=== PATIENT | female | born 1930 ===

== ENCOUNTER 2017-09-24 10:48 | Inpatient (IN) | payer MEDICARE, MEDICAID ==
[2017-09-24] MEDS ORDERED: Sodium Chloride 0.9% 1,000 ML IV STA (11:26)
[2017-09-24] MEDS ORDERED: Morphine 2 mg/ml ISec IVP STA (11:26)
--- NOTE | 2017-09-24 11:35 | ED PDOC ---
Arrival/HPI - General Chief Complaint: GI Problem Time Seen by Provider: 09/24/17 11:11 - History of Present Illness Narrative History of Present Illness (Text): 87 y/o woman w/ pmhx of s/p appendectomy, cholecystectomy, hysterecetomy, left humeral fracture, chronic interstitial lung disease on 02 (recent ct chest w/ contrast shows chronic ILD) presents c/o 5 days of constipation complainiing of luq/left flank/left sdoed cva pain ttp, typically exacerbated by movement, characterized as burning, denies any asosicate dn/v/fevers/chills/abdominal distention. ros : chronci cough x many months productive fo a whitish/yellowish mucoid expectoration. Denies dysuria. Last 5 days prior. 09/24/17 11:31 Past Medical History - Provider Review Nursing Documentation Reviewed: Yes - Past History Past History: Unable to Obtain - Tetanus Immunization Tetanus Immunization: Unknown - Cardiac Hx Hypertension: Yes - Pulmonary Hx Chronic Obstructive Pulmonary Disease (COPD): Yes - Neurological Hx Neurological Disorder: No - HEENT Hx HEENT Disorder: Yes Hx Cataracts: Yes Hx Glaucoma: Yes - Renal Hx Renal Disorder: Yes (RENAL INSUFFICIENCY) - Endocrine/Metabolic Hx Endocrine Disorders: No - Hematological/Oncological Hx Blood Disorders: Yes Hx Shingles: Yes (in 2013) - Integumentary Hx Dermatological Disorder: Yes Other/Comment: shingles - Musculoskeletal/Rheumatological Hx Falls: Yes Hx Fractures: Yes (fx left humerus) - Gastrointestinal Hx Gastrointestinal Disorders: Yes Hx Constipation: Yes Hx Gastroesophageal Reflux: Yes - Genitourinary/Gynecological Hx Reproductive Disorders: Yes (hyst) - Psychiatric Hx Psychophysiologic Disorder: No Hx Depression: No Hx Emotional Abuse: No Hx Physical Abuse: No Hx Substance Use: No - Surgical History Hx Appendectomy: Yes Hx Cholecystectomy: Yes Other/Comment: FALLOPIAN TUBES - Anesthesia Hx Anesthesia: Yes - Suicidal Assessment Feels Threatened In Home Enviroment: No Family/Social History - Physician Review Nursing Documentation Reviewed: Yes Family/Social History: No Known Family HX Smoking Status: Never Smoked Hx Alcohol Use: No Hx Substance Use: No Hx Substance Use Treatment: No Allergies/Home Meds Allergies/Adverse Reactions: Allergies acyclovir Adverse Reaction (Verified 09/24/17 11:02) SHORTNESS OF BREATH Home Medications: Home Meds Medication Instructions Recorded Confirmed Docusate [Colace] 1 cap PO DAILY 09/24/17 09/24/17 Esomeprazole Magnesium [Nexium] 40 mg PO DAILY 09/24/17 09/24/17 Latanoprost 0.005% Opht [Xalatan 1 drop OU HS 09/24/17 09/24/17 Opht] Montelukast [Singulair] 10 mg PO DAILY 09/24/17 09/24/17 Multivitamin/Iron/Folic Acid 1 tab PO DAILY 09/24/17 09/24/17 [Centrum Adults Tablet] Review of Systems - Review of Systems Constitutional: Normal Eyes: Normal ENT: Normal Respiratory: SOB, Cough Cardiovascular: Normal Gastrointestinal: Abdominal Pain, Constipation Genitourinary Female: Normal Musculoskeletal: Normal Skin: Normal Neurological: Normal Endocrine: Normal Hemo/Lymphatic: Normal Psychiatric: Normal Physical Exam Vital Signs Reviewed: Yes Vital Signs Temp Pulse Resp BP Pulse Ox 09/24/17 15:31 97.8 F 78 18 142/79 98 09/24/17 15:00 75 18 142/68 98 09/24/17 12:47 79 18 144/71 98 09/24/17 11:35 98.7 F 84 18 146/76 98 09/24/17 11:07 98.7 F 84 17 146/76 93 L Temperature: Afebrile Blood Pressure: Normal Pulse: Regular Respiratory Rate: Normal Appearance: Positive for: Well-Appearing, Non-Toxic, Comfortable Pain Distress: None Mental Status: Positive for: Alert and Oriented X 3 - Systems Exam Head: Present: Atraumatic, Normocephalic Pupils: Present: PERRL Extroacular Muscles: Present: EOMI Conjunctiva: Present: Normal Mouth: Present: Moist Mucous Membranes Neck: Present: Normal Range of Motion Respiratory/Chest: Present: Clear to Auscultation, Good Air Exchange. No: Respiratory Distress, Accessory Muscle Use Cardiovascular: Present: Regular Rate and Rhythm, Normal S1, S2. No: Murmurs Abdomen: Present: Normal Bowel Sounds, Other (soft, nt, no rebound ttp, + left midaxxillary line rib 10 ttp/leftr sided cva ttp ). No: Tenderness, Distention , Peritoneal Signs Back: Present: Normal Inspection Upper Extremity: Present: Normal Inspection. No: Cyanosis, Edema Lower Extremity: Present: Normal Inspection. No: Edema Neurological: Present: GCS=15, CN II-XII Intact, Speech Normal, Motor Func Grossly Intact, Normal Sensory Function, Normal Cerebellar Funct, Norm Deep Tendon Reflexes, Gait Normal, Memory Normal, Normal 2Pt Descrimination Skin: Present: Warm, Dry, Normal Color. No: Rashes Psychiatric: Present: Alert, Oriented x 3, Normal Insight, Normal Concentration Medical Decision Making ED Course and Treatment: nsr @ 77 bpm qtc: 416 mS , no arrythmogenic intervals , no ischemic st-t segment . 09/24/17 12:25 abd xr: moderate constipation ua: bactriuria cxr: diffuse interstitial infiltrate new onset. pna psi/port score : 79-89 , pt clinically hemodynamically stable . ambulatory w / managed pain , will discuss closely monitored outpt. with pmd. iv abx in ed and stool softeners. 09/24/17 14:18 Nausea has ensued, attempt at bm unsuccessful. discussions w/ pmd's Chyna and Khadijah [phone] , revelaed a preference for hospital admisison/ observation to facilitate disimpaction/ iv abx for new interstitial infiltrate. 09/24/17 16:13 - Lab Interpretations Lab Results: 09/24/17 11:34 09/24/17 11:34 Lab Results 09/24/17 13:06: Lactic Acid 0.9 09/24/17 11:53: Urine Color Yellow, Urine Appearance Clear, Urine pH 7.0, Ur Specific [place] <= 1.005, Urine Protein Negative, Urine Glucose (UA) Negative, Urine Ketones Negative, Urine Blood Trace-lysed H, Urine Nitrate Negative, Urine Bilirubin Negative, Urine Urobilinogen 0.2, Ur Leukocyte Esterase Negative , Urine RBC 2 - 5, Urine WBC 0 - 2, Ur Epithelial Cells 3 - 4, Amorphous Sediment Few, Urine Bacteria Mod, Urine Other Uyeast 09/24/17 11:34: Sodium 139, Potassium 4.5, Chloride 100, Carbon Dioxide 32, Anion Gap 12, BUN 12, Creatinine 0.6 L, Est GFR ( Amer) > 60, Est GFR ( Non-Af Amer) > 60, Random Glucose 103, Calcium 9.3, Total Bilirubin 1.0, AST 31 , ALT 30, Alkaline Phosphatase 81, Lactate Dehydrogenase 500, Total Creatine Kinase 56, Troponin I < 0.01, Total Protein 7.9, Albumin 4.1, Globulin 3.8, Albumin/Globulin Ratio 1.1, Amylase 58, Lipase 53 09/24/17 11:34: PT 11.7, INR 1.06, APTT 31.3 09/24/17 11:34: WBC 8.6, RBC 4.52, Hgb 13.7, Hct 41.4, MCV 91.6, MCH 30.3, MCHC 33.1, RDW 14.2, Plt Count 259, MPV 11.1 H, Gran % 51.5, Lymph % (Auto) 21.3 L, [place] % (Auto) 8.6 H, Eos % (Auto) 18.3 H, Baso % (Auto) 0.3, Gran # 4.41, Lymph # 1.8, [place] # 0.7 H, Eos # 1.6 H, Baso # 0.03 - RAD Interpretation Radiology Orders: 09/24/17 11:26 ABD 2 VIEWS (FLAT/UP OR DECUB) [RAD] Stat 09/24/17 12:43 CHEST TWO VIEWS (PA/LAT) [RAD] Stat - Medication Orders Current Medication Orders: Sodium Chloride (Sodium Chloride 0.9%) 1,000 mls @ 100 mls/hr IV .Q10H STA Stop: 09/24/17 21:25 Last Admin: 09/24/17 11:53 Dose: 100 mls/hr eMAR Start Stop Document 09/24/17 11:53 GMD (Rec: 09/24/17 11:53 GMD [facility] [id number]) Intravenous Solution Start Date 09/24/17 Start Time 11:53 Discontinued Medications Docusate Sodium (Colace) 200 mg PO STAT STA Stop: 09/24/17 14:16 Last Admin: 09/24/17 14:35 Dose: 200 mg Doxycycline Hyclate (Doryx) 100 mg PO STAT STA PRN Reason: Protocol Stop: 09/24/17 14:15 Last Admin: 09/24/17 14:35 Dose: 100 mg Famotidine (Pepcid) 20 mg IVP STAT STA Stop: 09/24/17 11:27 Last Admin: 09/24/17 11:52 Dose: 20 mg IVP Administration Document 09/24/17 11:52 GMD (Rec: 09/24/17 11:[id number]) Charges for Administration # of IVP Administrations 1 Ceftriaxone Sodium (Rocephin 1 Gram Ivpb) 1 gm in 100 mls @ 200 mls/hr IVPB STAT STA PRN Reason: Protocol Stop: 09/24/17 14:43 Last Admin: 09/24/17 14:49 Dose: 200 mls/hr eMAR Start Stop Document 09/24/17 14:49 GMD (Rec: 09/24/17 14:49 [id number]) Intravenous Solution Start Date 09/24/17 Start Time 14:49 End Date 09/24/17 End time 15:19 Total Infusion Time 30 Ipratropium [place] (Atrovent) 0.5 mg IH STAT STA Stop: 09/24/17 14:04 Last Admin: 09/24/17 14:35 Dose: 0.5 mg Morphine Sulfate (Morphine) 2 mg IVP STAT STA Stop: 09/24/17 11:27 Last Admin: 09/24/17 11:52 Dose: 2 mg MAR Pain Assessment Document 09/24/17 11:52 GMD (Rec: 09/24/17 11:53 GMD [place] [id number]) Pain Reassessment Is this a pain reassessment? No Sleep Is patient sleeping during reassessment? No Presence of Pain Presence of Pain Yes Location Left, Right or Bilateral Left Upper or Lower Lower Pain Location Body Site Abdomen Back IVP Administration Document 09/24/17 11:52 GMD (Rec: 09/24/17 11:53 GMD [place] [id number]) Charges for Administration # of IVP Administrations 1 Ondansetron HCl (Zofran Inj) 4 mg IVP STAT STA Stop: 09/24/17 15:40 Last Admin: 09/24/17 15:54 Dose: 4 mg IVP Administration Document 09/24/17 15:54 [email or web address] (Rec: 09/24/17 15:54 CASTS1 [place] [address]) Charges for Administration # of IVP Administrations 1 Disposition/Present on Arrival - Present on Arrival Any Indicators Present on Arrival: No History of DVT/PE: No History of Uncontrolled Diabetes: No Urinary Catheter: No History of Decub. Ulcer: No History Surgical Site Infection Following: None - Disposition Have Diagnosis and Disposition been Completed?: Yes Diagnosis: Interstitial pneumonia, Constipation Disposition: HOSPITALIZED Disposition Time: 16:17 Patient Plan: Admission Condition: FAIR Forms: [employer] ([place]ian)
[2017-09-24 11:53] LABS: BASO # 0.03 K/mm3 (0.0-2.0); BASO % 0.3 % (0.0-3.0); EOS # 1.6 (0.0-0.7); EOS % 18.3 % (1.5-5.0); GRAN # 4.41 (1.4-6.5); GRAN % 51.5 % (50.0-68.0); HEMATOCRIT 41.4 % (36.0-48.0); LYMPH # 1.8 (1.2-3.4); LYMPH % 21.3 % (22.0-35.0); MEAN CELL VOLUME 91.6 fl (80.0-105.0); MEAN CORPUSCULAR HEMOGLOBIN 30.3 pg (25.0-35.0); MEAN CORPUSCULAR HGB CONC 33.1 g/dl (31.0-37.0); MEAN PLATELET VOLUME 11.1 fl (7.0-11.0); MONO # 0.7 (0.1-0.6); MONO % 8.6 % (1.0-6.0); RED CELL DISTRIBUTION WIDTH 14.2 % (11.5-14.5); WHITE BLOOD COUNT 8.6 10^3/ul (4.5-11.0)
[2017-09-24 12:12] LABS: ALB/GLOB RATIO 1.1 (1.1-1.8); ALKALINE PHOSPHATASE 81 U/L (38-126); ALT/SGPT 30 U/L (7-56); AMYLASE 58 U/L (35-125); AST/SGOT 31 U/L (14-36); BLOOD UREA NITROGEN 12 mg/dL (7-21); CALCIUM 9.3 mg/dL (8.4-10.5); CARBON DIOXIDE 32 mmol/L (21-33); CHLORIDE 100 mmol/L (98-107); GFR AFRICAN-AMERICAN > 60; GLUCOSE,RANDOM 103 mg/dL (70-110); LIPASE 53 U/L (23-300); POTASSIUM 4.5 mmol/L (3.6-5.0); SODIUM 139 mmol/L (132-148); TOTAL PROTEIN 7.9 g/dL (5.8-8.3)
[2017-09-24 12:13] LABS: URINE APPEARANCE CLEAR (CLEAR); URINE BILIRUBIN NEGATIVE (NEGATIVE); URINE BLOOD TRACE-LYSED (NEGATIVE); URINE COLOR YELLOW (YELLOW); URINE GLUCOSE (UA) NEGATIVE (NEGATIVE); URINE KETONE NEGATIVE (NEGATIVE); URINE LEUKOCYTE ESTERASE NEGATIVE Leu/uL (NEGATIVE); URINE PROTEIN NEGATIVE mg/dL (<30 mg/dL); URINE UROBILINOGEN 0.2 E.U./dL (<1 E.U./dL)
[2017-09-24 12:16] LABS: INR 1.06 (0.93-1.08); PARTIAL THROMBOPLASTIN TIME 31.3 Seconds (25.1-36.5)
[2017-09-24 12:22] LABS: TROPONIN I < 0.01 ng/mL
[2017-09-24 12:29] LABS: URINE AMORPHOUS SEDIMENT FEW; URINE BACTERIA MOD (NEG); URINE WBC 0 - 2 /hpf (0-6)
--- NOTE | 2017-09-24 13:58 | RAD ---
HISTORY: constipation : examine gas patern COMPARISON: No prior. FINDINGS: BOWEL: There is moderate constipation BONES: Normal. OTHER FINDINGS: None. IMPRESSION: Moderate constipation
[2017-09-24] MEDS ORDERED: Ipratropium 0.02% Inhal Soln (0.5 mg/2.5 ml) UD IH STA (14:03)
--- NOTE | 2017-09-24 14:05 | RAD ---
HISTORY: r/o left costophrenic angle infiltrate COMPARISON: CT scan 09/17/2017 and chest x-ray 11/04/2016 TECHNIQUE: Chest PA and lateral FINDINGS: LUNGS: There is a diffuse interstitial infiltrate. This was not present on the previous chest x-ray. PLEURA: No significant pleural effusion identified. No pneumothorax apparent. CARDIOVASCULAR: Normal. OSSEOUS STRUCTURES: No significant abnormalities. VISUALIZED UPPER ABDOMEN: Normal. OTHER FINDINGS: None. IMPRESSION: Diffuse interstitial infiltrate
[2017-09-24] MEDS ORDERED: cefTRIAXone 1 gm 1 GM/100 ML BAG IVPB STA (14:14)
[2017-09-24] MEDS: Ipratropium 0.02% Inhal Soln (0.5 mg/2.5 ml) UD IH SCH (19:35)
[2017-09-24] MEDS ORDERED: Albuterol-Ipratrop 3 mg / 0.5 (3 ml) UD IH PRN (20:59)
--- NOTE | 2017-09-24 21:51 | CARD ---
APPROVED REPORT EKG Measurement Heart [id number] <Conclusion> Normal sinus rhythm Normal ECG
[2017-09-24] MEDS: Latanoprost 2.5 ml Opht Soln OU SCH (22:11)
[2017-09-24 22:40] VITALS: BMI 25.2
[2017-09-24] MEDS ORDERED: Influenza Vaccine 60 mcg/0.5 mL SYR (4YR UP) IM ONE (22:40)
[2017-09-24] MEDS ORDERED: Pneumococcal 23-Valent Vaccine IM ONE (22:40)
--- NOTE | 2017-09-24 22:51 | CP.PCM.PN ---
Subjective - Date & Time of Evaluation Date of Evaluation: 09/24/17 Time of Evaluation: 22:45 - Subjective Subjective: Patient was seen at bedside. Complains of cough. Speaks Georgian. Has no other complaints. Medical record was reviewed. This 87 year old woman was admitted with constipation, LUQ, left flank , left sided pain, chronic cough,interstitial pneumonia. Has PMH of HTN, shingles, appendectomy, cholecystectomy, hystrectomy,left humeral fracture, chronic interstitial lung disease, Objective - Vital Signs/Intake and Output Vital Signs (last 24 hours): Temp Pulse Resp BP Pulse Ox 99.2 F 98 H 17 121/70 98 09/24/17 22:24 09/24/17 22:24 09/24/17 22:24 09/24/17 22:24 09/24/17 21:30 - Medications Medications: Current Medications Albuterol/Ipratropium (Duoneb 3 Mg/0.5 Mg (3 Ml) Ud) 3 ml IH Q6H PRN PRN Reason: Shortness of Breath Arformoterol Tartrate (Brovana) 15 mcg IH [id number] RAKESH Bisacodyl (Dulcolax) 10 mg RC DAILY RAKESH Budesonide (Pulmicort Respules) 0.5 mg IH [id number] RAKESH Docusate Sodium (Colace) 100 mg PO DAILY RAKESH Guaifenesin (Robitussin) 100 mg PO Q4H PRN PRN Reason: Cough Ceftriaxone Sodium (Rocephin 1 Gram Ivpb) 1 gm in 100 mls @ 100 mls/hr IVPB DAILY RAKESH PRN Reason: Protocol Ipratropium [place] (Atrovent) 0.5 mg IH Q6 RAKESH Last Admin: 09/24/17 19:35 Dose: 0.5 mg Latanoprost (Xalatan Opht) 0 ml OU HS [facility] Last Admin: 09/24/17 22:11 Dose: 2.5 ml Montelukast Sodium (Singulair) 10 mg PO DAILY RAKESH Multivitamins (Thera Tab) 1 tab PO DAILY RAKESH Pantoprazole Sodium (Protonix Ec Tab) 40 mg PO DAILY RAKESH Pneumococcal Polyvalent Vaccine (Pneumovax 23 Vaccine) 0.5 ml IM .ONCE ONE Stop: 09/24/17 22:41 - Labs Labs: PT 11.7 SECONDS (9.4-12.5) 11/16/17 11:34 INR 1.06 (0.93-1.08) 09/24/17 11:34 APTT 31.3 Seconds (25.1-36.5) 09/24/17 11:34 Most Recent Lab Values WBC 8.6 10^3/ul (4.5-11.0) 09/24/17 11:34 RBC 4.52 10^6/uL (3.5-6.1) 09/24/17 11:34 Hgb 13.7 g/dL (12.0-16.0) 09/24/17 11:34 Hct 41.4 % (36.0-48.0) 09/24/17 11:34 MCV 91.6 fl (80.0-105.0) 09/24/17 11:34 MCH 30.3 pg (25.0-35.0) 09/24/17 11:34 MCHC 33.1 g/dl (31.0-37.0) 09/24/17 11:34 RDW 14.2 % (11.5-14.5) 09/24/17 11:34 Plt Count 259 10^3/uL (120.0-450.0) 09/24/17 11:34 MPV 11.1 fl (7.0-11.0) H 09/24/17 11:34 Gran % 51.5 % (50.0-68.0) 09/24/17 11:34 Lymph % (Auto) 21.3 % (22.0-35.0) L 09/24/17 11:34 [place] % (Auto) 8.6 % (1.0-6.0) H 09/24/17 11:34 Eos % (Auto) 18.3 % (1.5-5.0) H 09/24/17 11:34 Baso % (Auto) 0.3 % (0.0-3.0) 09/24/17 11:34 Gran # 4.41 (1.4-6.5) 09/24/17 11:34 Lymph # 1.8 (1.2-3.4) 09/24/17 11:34 [place] # 0.7 (0.1-0.6) H 09/24/17 11:34 Eos # 1.6 (0.0-0.7) H 09/24/17 11:34 Baso # 0.03 K/mm3 (0.0-2.0) 09/24/17 11:34 PT 11.7 SECONDS (9.4-12.5) 09/24/17 11:34 INR 1.06 (0.93-1.08) 09/24/17 11:34 APTT 31.3 Seconds (25.1-36.5) 09/24/17 11:34 Sodium 139 mmol/L (132-148) 09/24/17 11:34 Potassium 4.5 mmol/L (3.6-5.0) 09/24/17 11:34 Chloride 100 mmol/L (98-107) 09/24/17 11:34 Carbon Dioxide 32 mmol/L (21-33) 09/24/17 11:34 Anion Gap 12 (10-20) 09/24/17 11:34 BUN 12 mg/dL (7-21) 09/24/17 11:34 Creatinine 0.6 mg/dl (0.7-1.2) L 09/24/17 11:34 Est GFR ( Amer) > 60 09/24/17 11:34 Est GFR (Non-Af Amer) > 60 09/24/17 11:34 Random Glucose 103 mg/dL (70-110) 09/24/17 11:34 Lactic Acid 0.9 mmol/L (0.7-2.1) 09/24/17 13:06 Calcium 9.3 mg/dL (8.4-10.5) 09/24/17 11:34 Total Bilirubin 1.0 mg/dL (0.2-1.3) 09/24/17 11:34 AST 31 U/L (14-36) 09/24/17 11:34 ALT 30 U/L (7-56) 09/24/17 11:34 Alkaline Phosphatase 81 U/L (38-126) 09/24/17 11:34 Lactate Dehydrogenase 500 U/L (333-699) 09/24/17 11:34 Total Creatine Kinase 56 U/L (35-230) 09/24/17 11:34 Troponin I < 0.01 ng/mL 09/24/17 11:34 Total Protein 7.9 g/dL (5.8-8.3) 09/24/17 11:34 Albumin 4.1 g/dL (3.0-4.8) 09/24/17 11:34 Globulin 3.8 gm/dL 09/24/17 11:34 Albumin/Globulin Ratio 1.1 (1.1-1.8) 09/24/17 11:34 Amylase 58 U/L (35-125) 09/24/17 11:34 Lipase 53 U/L (23-300) 09/24/17 11:34 Urine Color Yellow (YELLOW) 09/24/17 11:53 Urine Appearance Clear (CLEAR) 09/24/17 11:53 Urine pH 7.0 (4.7-8.0) 09/24/17 11:53 Ur Specific [place] <= 1.005 (1.005-1.035) 09/24/17 11:53 Urine Protein Negative mg/dL (<30 mg/dL) 09/24/17 11:53 Urine Glucose (UA) Negative mg/dL (NEGATIVE) 09/24/17 11:53 Urine Ketones Negative mg/dL (NEGATIVE) 09/24/17 11:53 Urine Blood Trace-lysed (NEGATIVE) H 09/24/17 11:53 Urine Nitrate Negative (NEGATIVE) 09/24/17 11:53 Urine Bilirubin Negative (NEGATIVE) 09/24/17 11:53 Urine Urobilinogen 0.2 E.U./dL (<1 E.U./dL) 09/24/17 11:53 Ur Leukocyte Esterase Negative [place]/uL (NEGATIVE) 09/24/17 11:53 Urine RBC 2 - 5 /hpf (0-2) 09/24/17 11:53 Urine WBC 0 - 2 /hpf (0-6) 09/24/17 11:53 Ur Epithelial Cells 3 - 4 /hpf (0-5) 09/24/17 11:53 Amorphous Sediment Few 09/24/17 11:53 Urine Bacteria Mod (NEG) 09/24/17 11:53 Urine Other Uyeast 09/24/17 11:53 - Constitutional Appears: Well, No Acute Distress - Head Exam Head Exam: ATRAUMATIC, NORMAL INSPECTION, NORMOCEPHALIC - Eye Exam Eye Exam: Normal appearance - ENT Exam ENT Exam: Normal External Ear Exam - Neck Exam Neck Exam: Normal Inspection - Respiratory Exam Respiratory Exam: NORMAL BREATHING PATTERN - Cardiovascular Exam Cardiovascular Exam: absent: JVD - GI/Abdominal Exam GI & Abdominal Exam: absent: Distended - Rectal Exam Rectal Exam: Deferred - Exam Additional comments: Deferred. - Extremities Exam Extremities Exam: Normal Inspection - Back Exam Back Exam: NORMAL INSPECTION - Neurological Exam Neurological Exam: Alert, Awake - Psychiatric Exam Psychiatric exam: Normal Affect, Normal Mood - Skin Skin Exam: Normal Color Assessment and Plan - Assessment and Plan (Free Text) Assessment: Chronic cough. Interstitial lung disease. PNA. HTN. Plan: Robitussin 5 CC PO Q6H prn cough. Continue present management as per PMD.
[2017-09-24] MEDS: guaiFENesin 100 mg/5 ml Syrup UD PO PRN (22:52)
[2017-09-25] MEDS: Ipratropium 0.02% Inhal Soln (0.5 mg/2.5 ml) UD IH SCH ×4 (01:07→20:54)
--- NOTE | 2017-09-25 02:10 | HP ---
CHIEF COMPLAINT: Abdominal pain and coughing. HISTORY OF PRESENT ILLNESS: Kaitlin Altman is an 87-year-old female with past medical history of appendectomy, cholecystectomy, hysterectomy, left femur fracture, and chronic interstitial lung disease, on oxygen. Recent x-ray shows ILD, came complaining of constipation and pain in the left flank. Denies any associated fevers or chills. No nausea or vomiting. The patient has coughing with whitish-yellowish mucoid sputum. No dysuria. No fever. PAST MEDICAL HISTORY: Hypertension, COPD, glaucoma, renal insufficiency, history of shingles, history of fracture of the left humerus, chronic constipation, GERD, dyspepsia, appendectomy, cholecystectomy, and fallopian tube ligation. FAMILY HISTORY: Father and mother noncontributory. The patient is living with and son and with family. HABITS: Never smoked. No drug. No ethanol. ALLERGIES: THE PATIENT IS ALLERGIC WITH ACYLOVIR. HOME MEDICATIONS: Colace, Nexium, Xalatan, Singulair, and multivitamins. REVIEW OF SYSTEMS: The patient is seen and examined on the bedside, in the ER, complaining of coughing with shortness of breath, abdominal pain, constipation. No fever. No chills. No headache. No dizziness. No swelling of the legs. The patient is awake and alert, well appearing, nontoxic. PHYSICAL EXAMINATION VITAL SIGNS: Temperature 97.8, pulse 75, blood pressure 130/75, and respiratory rate 17. HEENT: Head is normocephalic and atraumatic. Eyes; PERRLA. Extraocular muscles intact. Conjunctivae clear. Nose patent. Mucous membranes moist. NECK: Supple. No carotid bruit, JVD or thyromegaly. CHEST: Bilaterally symmetric. HEART: S1 and S2 positive. LUNGS: Clear to auscultation. ABDOMEN: Soft. Bowel sounds present. No organomegaly. EXTREMITIES: No edema. No cyanosis. NEUROLOGIC: The patient is awake and alert. Moving all four extremities. No focal deficits. LABORATORY DATA: White blood cell is 8.6, hemoglobin 13.7, hematocrit 41.4, and platelets 259. Sodium 139, potassium 4.5, BUN 5, and creatinine 0.6. Liver function tests within normal limits. ASSESSMENT AND PLAN: Ms. Kaitlin Altman is an 87-year-old lady with hematuria, came with abdominal pain, coughing, and shortness of breath. Abdominal x-ray done showed moderate constipation. We will give her some laxative. Chest x-ray done showed diffuse interstitial infiltrates, as per ER physician, it is more than the previous CAT scan. The patient has history of appendectomy, cholecystectomy, left humeral fracture, chronic interstitial lung disease, asthma, hypertension, dementia, history of renal insufficiency, shingles, and history of fall. We admitted the patient for pulmonary consult. Started home medications and antibiotics and laxative. gave the patient Colace and dose of doxycycline given in the emergency room. Dr. Newby gave Dulcolax. The patient was given morphine stat, we will work on that, getting proton pump inhibitors. Gastrointestinal and deep venous thrombosis prophylaxis. Repeat labs. We will follow up. Nadira Clemente MD MTDD
[2017-09-25] MEDS: guaiFENesin 100 mg/5 ml Syrup UD PO PRN ×3 (04:10→22:22)
[2017-09-25] MEDS: Sodium Chloride 0.9% 1,000 ML IV SCH ×3 (04:30→23:34)
--- NOTE | 2017-09-25 05:15 | CON ---
DATE: 09/24/2017 PULMONARY CONSULT REFERRING PHYSICIAN: Nadira Clemente MD REASON FOR CONSULT: Chronic obstructive lung disease, may have chronic aspiration and constipation. HISTORY OF PRESENT ILLNESS: This is an 87-year-old female well known to me from previous admission, history of herpetic, encephalopathy?, recovered pretty much, improving cognitive from the last few years, chronic obstructive lung disease, history of fall with humeral fracture, also has constipation, few days did no good, had a bowel movement, has left-sided burning type of pain. No nausea. No leg pain. No leg swelling. PAST MEDICAL HISTORY: Chronic obstructive lung disease, history of GERD, hypertension, hyperlipidemia, history of herpetic infection, encephalopathy, history of fall with a hip fracture. ALLERGIES: TO ACYCLOVIR. SOCIAL HISTORY: Nonsmoker, nondrinker. FAMILY HISTORY: No significant cardiopulmonary disease reported. MEDICATIONS: She is on Atrovent inhaled q.6 hours, Colace 100 mg daily, Protonix 40 mg daily, Rocephin 1 g IV daily, IV fluid normal saline 100 mL per hour, multivitamins daily, eyedrops. REVIEW OF SYSTEM: No headache, no rhinitis. Mild cough and shortness of breath. No chest pain. Has abdominal pain, constipation. No leg pain or leg swelling. PHYSICAL EXAMINATION GENERAL: No acute distress. VITAL SIGNS: Temperature is 98, heart rate 78, respiratory is 20, blood pressure 138/75 and pulse 98% on nasal cannula. HEENT: Moist mucous membrane. Crowded airway. NECK: Supple. No JVD. LUNGS: Has crackles at the bases. HEART: S1, S2. ABDOMEN: Soft. Mild tenderness. EXTREMITIES: Not much edema. NEUROLOGIC: Awake, alert, does follows simple commands. LABORATORY DATA: Shows hemoglobin 13.7, hematocrit 41.4, WBC 8.6, platelet count is 259. INR 1.06. PTT is 31. Sodium 139, potassium 4.5, chloride 100, bicarbonate 32, BUN 12, creatinine 0.6, glucose 103. Lactic acid is 0.9, calcium 9.3, AST 31, ALT 30, alk phos is 81. LDH is 500. Troponin less than 0.01. Albumin is 4.1. Urinalysis shows trace blood, wbc's 0 to 2, rbc's 2 to 5. Chest x-ray shows bilateral interstitial infiltrate. CT done on 09/17 shows similar interstitial infiltrate. IMPRESSION: History of cerebrovascular accident, encephalopathy, seizure disorder, chronic lung disease, interstitial infiltrate, constipation, history of fall with fracture. Agree with the present management. Continue antibiotics. Keep head at 45 degrees. Nebulizer treatment, laxatives. Follow up labs in the morning. Thank you very much and we will follow with you. Erika Newby MD
[2017-09-25 06:14] LABS: MEAN CELL VOLUME 91.3 fl (80.0-105.0); MEAN CORPUSCULAR HEMOGLOBIN 29.6 pg (25.0-35.0); MEAN CORPUSCULAR HGB CONC 32.4 g/dl (31.0-37.0); MEAN PLATELET VOLUME 11.3 fl (7.0-11.0); RED CELL DISTRIBUTION WIDTH 14.2 % (11.5-14.5); WHITE BLOOD COUNT 10.2 10^3/ul (4.5-11.0)
[2017-09-25 06:39] LABS: BLOOD UREA NITROGEN 10 mg/dL (7-21); CALCIUM 8.6 mg/dL (8.4-10.5); CARBON DIOXIDE 28 mmol/L (21-33); CHLORIDE 104 mmol/L (98-107); CHOLESTEROL 139 mg/dL (130-200); GFR AFRICAN-AMERICAN > 60; GLUCOSE,RANDOM 98 mg/dL (70-110); POTASSIUM 4.3 mmol/L (3.6-5.0); SODIUM 138 mmol/L (132-148)
[2017-09-25] MEDS: Arformoterol 15 mcg/2 ml Inh Sol IH SCH ×2 (07:41→20:54)
[2017-09-25] MEDS: Budesonide 0.5 mg/2 ml Inhal Susp UD IH SCH ×2 (07:41→20:54)
[2017-09-25] MEDS: cefTRIAXone 1 gm 1 GM/100 ML BAG IVPB SCH (09:43)
[2017-09-25] MEDS: Pantoprazole 40 mg EC Tab PO SCH (09:43)
[2017-09-25] MEDS: Multivitamin Therapeutic Tab PO SCH (09:43)
[2017-09-25] MEDS: POLYETHYLENE GLYCOL 3350 17 GM/Dose PACKET PO SCH (12:52)
[2017-09-25 13:37] LABS: FOLATE > 20.0 ng/mL
--- NOTE | 2017-09-25 20:15 | PN ---
DATE: 09/25/2017 PULMONARY PROGRESS NOTE REFERRING PHYSICIAN: Nadira Clemente MD SUBJECTIVE: The patient is lying in the bed, farm reporter is at bedside. Had some cough, sputum production. No nausea. No vomiting. No headache. No abdominal pain. No bowel movement. No leg pain or leg swelling. OBJECTIVE: VITAL SIGNS: Temperature is 98, heart rate is 68, respiratory rate is 20, blood pressure is 122/72, and pulse ox is 98% on 2 liters nasal cannula. HEENT: Moist mucous membranes. Crowded airway. Mallampati score is IV. NECK: Supple. No JVD. LUNGS: Has a bilateral crackles. HEART: S1 and S2. ABDOMEN: Soft and nontender. Mild tenderness in the left lower quadrant. EXTREMITIES: There is no edema. NEUROLOGICAL: Awake and alert. Follow simple commands. MEDICATIONS: She is on Atrovent 0.5 mg q. 6 hour, Brovana inhale twice a day, Colace 100 mg twice a day, Dulcolax 10 mg rectally daily, DuoNeb q. 6 hours p.r.n., MiraLax 17 g twice a day, Protonix 40 mg daily, Pulmicort inhale twice a day, Robitussin p.r.n. basis, Rocephin 1 g daily, Singulair 10 mg daily, IV fluid normal saline 100 mL per hour, multivitamins daily, has an eyedrops. LABORATORY DATA: Shows hemoglobin 12.3, hematocrit 38.0, WBC 10.2, and platelet count is 247. Blood sugar 87, sodium 138, potassium 4.3, chloride 104, bicarbonate 28, BUN 10, creatinine 0.5, glucose is 98, hemoglobin A1c 5.8, calcium is 8.6, iron is 85, cholesterol is 139, vitamin B12 is 593, folate is more than 20. TSH 2.65. Microbiology; blood culture is negative, urine culture; there is not much growth, some contamination in the urine culture. IMPRESSION AND PLAN: History of cerebrovascular accident, encephalopathy, seizure disorder, chronic lung disease, interstitial infiltrate, constipation, history of fall with leg fracture. From pulmonary point of view, continue bronchodilator, keep head at 45 degrees. May add Solu-Medrol. We will add Reglan for 24 to 48-hour. Continue laxative, aspiration precaution. Repeat swallow evaluation. Thank you and we will follow with you. Erika Newby MD
[2017-09-25] MEDS: Latanoprost 2.5 ml Opht Soln OU SCH (22:25)
--- NOTE | 2017-09-26 00:10 | CP.PCM.PN ---
<Sandy Wilkinson - Last Filed: 09/26/17 00:06> Subjective - Date & Time of Evaluation Date of Evaluation: 09/25/17 Time of Evaluation: 10:45 - Subjective Subjective: 87yr female with h/o COPD, HTN, cataracts, glaucoma, CVA, Renal insufficency, GERD, appendectomy, cholecystectomy, hysterecetomy, L humeral fracture, chronic interstitial lung disease on home O2. She is returning from bathroom with use of her cane and reports constipation and abdominal distention. She denies any N/V, diarrhea, chills, urinary changes, or distress. Objective - Vital Signs/Intake and Output Vital Signs (last 24 hours): Temp Pulse Resp BP Pulse Ox 99.2 F 103 H 20 147/87 96 09/25/17 22:00 09/25/17 22:00 09/25/17 22:00 09/25/17 22:00 09/25/17 22:00 - Medications Medications: Current Medications Albuterol/Ipratropium (Duoneb 3 Mg/0.5 Mg (3 Ml) Ud) 3 ml IH Q6H PRN PRN Reason: Shortness of Breath Last Admin: 09/25/17 17:20 Dose: 3 ml Arformoterol Tartrate (Brovana) 15 mcg IH [id number] [facility] Last Admin: 09/25/17 20:54 Dose: 15 mcg Bisacodyl (Dulcolax) 10 mg RC DAILY [facility] Last Admin: 09/25/17 09:44 Dose: 10 mg Budesonide (Pulmicort Respules) 0.5 mg IH [id number] [facility] Last Admin: 09/25/17 20:54 Dose: 0.5 mg Docusate Sodium (Colace) 100 mg PO BID [facility] Last Admin: 09/25/17 17:55 Dose: 100 mg Guaifenesin (Robitussin) 100 mg PO Q4H PRN PRN Reason: Cough Last Admin: 09/25/17 22:22 Dose: 100 mg Ceftriaxone Sodium (Rocephin 1 Gram Ivpb) 1 gm in 100 mls @ 100 mls/hr IVPB DAILY [facility] PRN Reason: Protocol Last Admin: 09/25/17 09:43 Dose: 100 mls/hr Sodium Chloride (Sodium Chloride 0.9%) 1,000 mls @ 100 mls/hr IV .Q10H [facility] Last Admin: 09/25/17 23:34 Dose: 100 mls/hr Ipratropium Outing (Atrovent) 0.5 mg IH Q6 [facility] Last Admin: 09/25/17 20:54 Dose: 0.5 mg Latanoprost (Xalatan Opht) 0 ml OU HS [facility] Last Admin: 09/25/17 22:25 Dose: 2.5 ml Methylprednisolone (Solu-Medrol) 40 mg IVP Q8 [facility] Last Admin: 09/25/17 22:22 Dose: 40 mg Metoclopramide HCl (Reglan) 10 mg PO 0600,1130,1630,2200 [facility] Last Admin: 09/25/17 22:21 Dose: 10 mg Montelukast Sodium (Singulair) 10 mg PO DAILY [facility] Last Admin: 09/25/17 09:43 Dose: 10 mg Multivitamins (Thera Tab) 1 tab PO DAILY [facility] Last Admin: 09/25/17 09:43 Dose: 1 tab Pantoprazole Sodium (Protonix Ec Tab) 40 mg PO DAILY [facility] Last Admin: 09/25/17 09:43 Dose: 40 mg Polyethylene Glycol (Miralax) 17 gm PO DAILY [facility] Stop: 09/27/17 11:00 Last Admin: 09/25/17 12:52 Dose: 17 gm - Labs Labs: 09/25/17 05:30 09/25/17 05:30 PT 11.7 SECONDS (9.4-12.5) 09/24/17 11:34 INR 1.06 (0.93-1.08) 09/24/17 11:34 APTT 31.3 Seconds (25.1-36.5) 09/24/17 11:34 - Constitutional Appears: No Acute Distress - Head Exam Head Exam: ATRAUMATIC - Eye Exam Eye Exam: Normal appearance Pupil Exam: NORMAL ACCOMODATION - ENT Exam ENT Exam: Mucous Membranes Moist - Neck Exam Neck Exam: Full ROM - Respiratory Exam Respiratory Exam: Decreased Breath Sounds, NORMAL BREATHING PATTERN - Cardiovascular Exam Cardiovascular Exam: REGULAR RHYTHM, +S1, +S2 - GI/Abdominal Exam GI & Abdominal Exam: Distended, Hyperactive Bowel Sounds - Extremities Exam Extremities Exam: Normal Inspection Additional comments: uses cane, gait unsteady - Neurological Exam Neurological Exam: Alert, Oriented x3 - Psychiatric Exam Psychiatric exam: Normal Affect, Normal Mood - Skin Skin Exam: Dry, Intact, Normal Color, Warm Assessment and Plan (1) Interstitial pneumonia Status: Acute (2) Cough Status: Acute (3) Constipation Status: Acute (4) GERD (gastroesophageal reflux disease) Status: Chronic (5) Glaucoma Status: Chronic - Assessment and Plan (Free Text) Plan: Pnemonia - continue abx Constipation - prescribed colace BID, lactulose, miralax q24hr x3 doses. Cough - continue robitussin GERD - stable Glaucoma - stable Dr. Newby : continue bronchodilator, HOB 45, reglan Q24-48 hr, continue laxative. Repeat swallow eval, aspiration precautions. CXR (+) diffuse interstitial infiltrate <Nadira Clemente - Last Filed: 09/27/17 09:37> Objective - Vital Signs/Intake and Output Vital Signs (last 24 hours): Temp Pulse Resp BP Pulse Ox 97.9 F 78 18 123/75 96 09/26/17 08:13 09/26/17 08:13 09/26/17 08:13 09/26/17 08:13 09/26/17 08:13 Intake and Output: 09/26/17 09/26/17 06:59 18:59 Intake Total 1400 Output Total 650 Balance 750 - Medications Medications: Current Medications Albuterol/Ipratropium (Duoneb 3 Mg/0.5 Mg (3 Ml) Ud) 3 ml IH Q6H PRN PRN Reason: Shortness of Breath Last Admin: 09/25/17 17:20 Dose: 3 ml Arformoterol Tartrate (Brovana) 15 mcg IH [id number] [facility] Last Admin: 09/26/17 08:13 Dose: 15 mcg Bisacodyl (Dulcolax) 10 mg RC DAILY [facility] Last Admin: 09/26/17 09:32 Dose: 10 mg Budesonide (Pulmicort Respules) 0.5 mg IH [id number] [facility] Last Admin: 09/26/17 08:13 Dose: 0.5 mg Docusate Sodium (Colace) 100 mg PO BID [facility] Last Admin: 09/26/17 09:32 Dose: 100 mg Guaifenesin (Robitussin) 100 mg PO Q4H PRN PRN Reason: Cough Last Admin: 09/26/17 09:53 Dose: 100 mg Ceftriaxone Sodium (Rocephin 1 Gram Ivpb) 1 gm in 100 mls @ 100 mls/hr IVPB DAILY [facility] PRN Reason: Protocol Last Admin: 09/26/17 09:23 Dose: 100 mls/hr Sodium Chloride (Sodium Chloride 0.9%) 1,000 mls @ 100 mls/hr IV .Q10H [facility] Last Admin: 09/26/17 09:32 Dose: 100 mls/hr Ipratropium Outing (Atrovent) 0.5 mg IH [id number] [facility] Last Admin: 09/26/17 08:13 Dose: 0.5 mg Latanoprost (Xalatan Opht) 0 ml OU HS [facility] Last Admin: 09/25/17 22:25 Dose: 2.5 ml Methylprednisolone (Solu-Medrol) 40 mg IVP Q8 RAKESH Metoclopramide HCl (Reglan) 10 mg PO 0600,1130,1630,2200 [facility] Last Admin: 09/26/17 06:22 Dose: 10 mg Montelukast Sodium (Singulair) 10 mg PO DAILY [facility] Last Admin: 09/26/17 09:32 Dose: 10 mg Multivitamins (Thera Tab) 1 tab PO DAILY [facility] Last Admin: 09/26/17 09:32 Dose: 1 tab Pantoprazole Sodium (Protonix Ec Tab) 40 mg PO DAILY [facility] Last Admin: 09/26/17 09:32 Dose: 40 mg Polyethylene Glycol (Miralax) 17 gm PO DAILY [facility] Stop: 09/27/17 11:00 Last Admin: 09/26/17 09:32 Dose: 17 gm - Labs Labs: 09/25/17 05:30 09/25/17 05:30 PT 11.7 SECONDS (9.4-12.5) 09/24/17 11:34 INR 1.06 (0.93-1.08) 09/24/17 11:34 APTT 31.3 Seconds (25.1-36.5) 09/24/17 11:34 Assessment and Plan - Assessment and Plan (Free Text) Plan: pt was seen and examined at bed side , still coughing , getting due. neb , robitussin , getting miralax .pul on the case . 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 no change of the status , will f/u
--- NOTE | 2017-09-26 00:23 | CP.PCM.PN ---
Subjective - Date & Time of Evaluation Date of Evaluation: 09/26/17 Time of Evaluation: 00:23 - Subjective Subjective: Patient was seen at bedside. Speaks danish. Complained of bodyaches. Requested something for pain. Has no other complaints. She has been constipated and has received multiple med for that. 87 year old woman was admitted with constipation, LUQ, left flank, left sided pain, chronic cough,interstitial pneumonia. PMH of HTN, shingles, chronic interstitial lung disease, appendectomy, cholecystectomy, hystrectomy,left humeral fracture. Objective - Vital Signs/Intake and Output Vital Signs (last 24 hours): Temp Pulse Resp BP Pulse Ox 99.2 F 103 H 20 147/87 96 09/25/17 22:00 09/25/17 22:00 09/25/17 22:00 09/25/17 22:00 09/25/17 22:00 - Medications Medications: Current Medications Acetaminophen (Tylenol 325mg Tab) 650 mg PO STAT [facility] Stop: 09/26/17 00:23 Albuterol/Ipratropium (Duoneb 3 Mg/0.5 Mg (3 Ml) Ud) 3 ml IH Q6H PRN PRN Reason: Shortness of Breath Last Admin: 09/25/17 17:20 Dose: 3 ml Arformoterol Tartrate (Brovana) 15 mcg IH [id number] [facility] Last Admin: 09/25/17 20:54 Dose: 15 mcg Bisacodyl (Dulcolax) 10 mg RC DAILY [facility] Last Admin: 09/25/17 09:44 Dose: 10 mg Budesonide (Pulmicort Respules) 0.5 mg IH [id number] [facility] Last Admin: 09/25/17 20:54 Dose: 0.5 mg Docusate Sodium (Colace) 100 mg PO BID [facility] Last Admin: 09/25/17 17:55 Dose: 100 mg Guaifenesin (Robitussin) 100 mg PO Q4H PRN PRN Reason: Cough Last Admin: 09/25/17 22:22 Dose: 100 mg Ceftriaxone Sodium (Rocephin 1 Gram Ivpb) 1 gm in 100 mls @ 100 mls/hr IVPB DAILY [facility] PRN Reason: Protocol Last Admin: 09/25/17 09:43 Dose: 100 mls/hr Sodium Chloride (Sodium Chloride 0.9%) 1,000 mls @ 100 mls/hr IV .Q10H [facility] Last Admin: 09/25/17 23:34 Dose: 100 mls/hr Ipratropium Kermit (Atrovent) 0.5 mg IH Q6 [facility] Last Admin: 09/25/17 20:54 Dose: 0.5 mg Latanoprost (Xalatan Opht) 0 ml OU HS [facility] Last Admin: 09/25/17 22:25 Dose: 2.5 ml Methylprednisolone (Solu-Medrol) 40 mg IVP Q8 [facility] Last Admin: 09/25/17 22:22 Dose: 40 mg Metoclopramide HCl (Reglan) 10 mg PO 0600,1130,1630,2200 [facility] Last Admin: 09/25/17 22:21 Dose: 10 mg Montelukast Sodium (Singulair) 10 mg PO DAILY [facility] Last Admin: 09/25/17 09:43 Dose: 10 mg Multivitamins (Thera Tab) 1 tab PO DAILY [facility] Last Admin: 09/25/17 09:43 Dose: 1 tab Pantoprazole Sodium (Protonix Ec Tab) 40 mg PO DAILY [facility] Last Admin: 09/25/17 09:43 Dose: 40 mg Polyethylene Glycol (Miralax) 17 gm PO DAILY [facility] Stop: 09/27/17 11:00 Last Admin: 09/25/17 12:52 Dose: 17 gm - Labs Labs: 09/25/17 05:30 09/25/17 05:30 PT 11.7 SECONDS (9.4-12.5) 09/24/17 11:34 INR 1.06 (0.93-1.08) 09/24/17 11:34 APTT 31.3 Seconds (25.1-36.5) 09/24/17 11:34 - Constitutional Appears: Well, No Acute Distress - Head Exam Head Exam: ATRAUMATIC, NORMAL INSPECTION, NORMOCEPHALIC - Eye Exam Eye Exam: Normal appearance - ENT Exam ENT Exam: Normal External Ear Exam - Neck Exam Neck Exam: Normal Inspection - Respiratory Exam Respiratory Exam: NORMAL BREATHING PATTERN - Cardiovascular Exam Cardiovascular Exam: absent: JVD - GI/Abdominal Exam GI & Abdominal Exam: absent: Distended - Rectal Exam Rectal Exam: Deferred - Exam Additional comments: Deferred. - Extremities Exam Extremities Exam: Normal Inspection - Back Exam Back Exam: NORMAL INSPECTION - Neurological Exam Neurological Exam: Alert, Awake - Psychiatric Exam Psychiatric exam: Normal Affect, Normal Mood - Skin Skin Exam: Normal Color Assessment and Plan - Assessment and Plan (Free Text) Assessment: Bodyaches. Constipation. Chronic interstitial lung disease. HTN. Plan: Tylenol 650 mg PO x 1. Continue present management.
[2017-09-26] MEDS: Ipratropium 0.02% Inhal Soln (0.5 mg/2.5 ml) UD IH SCH ×5 (01:41→21:23)
[2017-09-26] MEDS: guaiFENesin 100 mg/5 ml Syrup UD PO PRN ×3 (06:22→13:24)
[2017-09-26] MEDS: Arformoterol 15 mcg/2 ml Inh Sol IH SCH ×2 (08:13→20:04)
[2017-09-26] MEDS: Budesonide 0.5 mg/2 ml Inhal Susp UD IH SCH ×2 (08:13→20:08)
[2017-09-26] MEDS: cefTRIAXone 1 gm 1 GM/100 ML BAG IVPB SCH (09:23)
[2017-09-26] MEDS: Sodium Chloride 0.9% 1,000 ML IV SCH ×2 (09:32→21:23)
[2017-09-26] MEDS: Multivitamin Therapeutic Tab PO SCH (09:32)
[2017-09-26] MEDS: Pantoprazole 40 mg EC Tab PO SCH (09:32)
[2017-09-26] MEDS: POLYETHYLENE GLYCOL 3350 17 GM/Dose PACKET PO SCH (09:32)
[2017-09-26] MEDS ORDERED: Albuterol-Ipratrop 3 mg / 0.5 (3 ml) UD IH PRN (12:50)
[2017-09-26] MEDS: MethylPREDNISolone 40 mg Vial IVP SCH ×2 (13:24→21:23)
[2017-09-26] MEDS: guaiFENesin-Codeine 100-10mg/5ml Syrup (5 ml) UD PO PRN ×2 (15:37→21:28)
[2017-09-26] MEDS: Albuterol-Ipratrop 3 mg / 0.5 (3 ml) UD IH PRN (15:38)
--- NOTE | 2017-09-26 18:13 | PN ---
PULMONARY PROGRESS NOTE DATE: 09/26/2017 REFERRING PHYSICIAN: Dr. Clemente. SUBJECTIVE: Lying in the bed. Feels little better. Still has cough . Had a bowel movement. Abdominal pain is gone. No nausea. No leg pain or leg swelling. PHYSICAL EXAMINATION: GENERAL: In no acute distress. VITAL SIGNS: Temperature is 98, heart rate is 78, respiratory rate is 18, blood pressure is 123/75, and pulse ox is 96% on 2 L nasal cannula. HEENT: Moist mucous membranes. Small oral cavity. NECK: Supple. No JVD. LUNGS: Has bilateral crackles. HEART: S1 and S2. ABDOMEN: Positive bowel sounds. Soft and nontender. EXTREMITIES: No edema. NEUROLOGIC: Awake, alert, and follow simple commands. MEDICATIONS: She is on Atrovent inhaled q. 6 hours, Brovana inhaled twice a day, Colace 100 mg twice a day, Dulcolax 10 mg rectally daily, DuoNeb q. 4 hours p.r.n., MiraLax 17 g twice a day, Protonix 40 mg daily, Pulmicort inhaled twice a day, Reglan 10 mg q. 6 hours, Robitussin with Codeine 5 mL q. 6 hours earlier today, Rocephin 1 g daily, Singulair 10 mg daily, ibuprofen, normal saline 100 mL per hour, Solu-Medrol 20 mg q. 8 hours and multivitamins. LABORATORY DATA: Reviewed. Blood sugar is 110. Microbiology; blood culture so far there is no growth. IMPRESSION AND PLAN: History of cerebrovascular accident, encephalopathy, seizure disorder, chronic lung disease, interstitial pulmonary infiltrate. We will get a procalcitonin and proBNP in the morning. Continue antibiotics. Discontinue IV fluids. Constipation. Antibiotics. Follow up labs in the morning. Thank you and we will follow with you. Erika Newby MD
[2017-09-26] MEDS: Latanoprost 2.5 ml Opht Soln OU SCH (21:28)
[2017-09-27] MEDS: Ipratropium 0.02% Inhal Soln (0.5 mg/2.5 ml) UD IH SCH ×4 (02:18→21:48)
--- NOTE | 2017-09-27 02:19 | PN ---
DATE: SUBJECTIVE: The patient is an 87-year-old female. The patient is examined on the bedside, coughing, but getting better. No nausea, vomiting, or diarrhea. No hematuria or hematochezia. No swelling of the legs. No chest pain and no palpitations. No headache and no dizziness. PHYSICAL EXAMINATION VITAL SIGNS: Temperature is 98, heart rate is 78, respiratory rate is 18, blood pressure is 120/70, and pulse oximetry is 96% on 2 liters nasal cannula. HEENT: Head is normocephalic and atraumatic. Eyes; PERRLA. Extraocular muscles intact. Conjunctivae are clear. Nose is patent. Mucous membranes are moist. NECK: Supple. No carotid bruits. No JVD or thyromegaly. CHEST: Bilaterally symmetrical. HEART: S1 and S2 positive. LUNGS: Clear to auscultation. ABDOMEN: Bowel sounds positive. No organomegaly. EXTREMITIES: No edema. No cyanosis. NEUROLOGIC: The patient is awake and alert. Follow simple commands, but she is getting episodes of confusion. MEDICATIONS: Atrovent, Brovana, Colace, Dulcolax, MiraLax, Protonix, Pulmicort, Reglan, Robitussin, Rocephin, Singulair, and Solu-Medrol. LABORATORY DATA: Blood sugar of 110. We do not have additional lab today, but I reviewed old labs. ASSESSMENT AND PLAN: Ms. Kaitlin Altman is an 87-year-old lady with multiple medical problems, history of cerebrovascular accident, encephalopathy, seizure disorder, chronic lung disease, interstitial pulmonary infiltrates, getting antibiotics, and had dementia , discontinued intravenous fluids. Continue antibiotics. Gastrointestinal and deep venous thrombosis prophylaxis. The patient is getting DuoNeb [id number] and p.r.n. We will follow up. Nadira Clemente MD [id number]
[2017-09-27] MEDS: MethylPREDNISolone 40 mg Vial IVP SCH ×3 (06:09→22:07)
[2017-09-27] MEDS: Sodium Chloride 0.9% 1,000 ML IV SCH (06:09)
[2017-09-27] MEDS: Arformoterol 15 mcg/2 ml Inh Sol IH SCH ×2 (07:58→20:06)
[2017-09-27] MEDS: Budesonide 0.5 mg/2 ml Inhal Susp UD IH SCH ×2 (07:58→20:06)
[2017-09-27] MEDS: guaiFENesin-Codeine 100-10mg/5ml Syrup (5 ml) UD PO PRN ×3 (08:09→19:30)
[2017-09-27] MEDS: POLYETHYLENE GLYCOL 3350 17 GM/Dose PACKET PO SCH (09:32)
[2017-09-27] MEDS: Multivitamin Therapeutic Tab PO SCH (09:34)
[2017-09-27] MEDS: Pantoprazole 40 mg EC Tab PO SCH (09:34)
[2017-09-27] MEDS: cefTRIAXone 1 gm 1 GM/100 ML BAG IVPB SCH (09:52)
[2017-09-27] MEDS: Lidocaine 5% Patch TD SCH (16:11)
--- NOTE | 2017-09-27 21:43 | PN ---
DATE: 09/27/2017 PULMONARY PROGRESS NOTE REFERRING PHYSICIAN: Nadira Clemente MD SUBJECTIVE: The patient is lying in the bed, head at 45 degrees, feels better, decreased cough, decreased shortness of breath or nausea. Did have a bowel movement. No leg pain or leg swelling. OBJECTIVE: GENERAL: In no acute distress. VITAL SIGNS: Temperature is 98, heart rate is 77, respiratory rate is 18, blood pressure 133/69, pulse ox 98% on 2 L nasal cannula. HEENT: Moist mucous membranes. Small oral cavity. Crowded airway. NECK: Supple. No JVD. LUNGS: Has crackles at the bases. HEART: S1 and S2. ABDOMEN: Soft, nontender. No organomegaly. EXTREMITIES: No edema. NEUROLOGIC: Awake, alert, and follow simple commands.. MEDICATIONS: She is on Atrovent 0.5 mg inhaled q. 6 hours, Brovana 15 mcg inhaled twice a day, Colace 100 mg twice a day, Dulcolax 10 mg rectally daily, DuoNeb q. 4 hours p.r.n., Lidoderm patch to the affected area, Protonix 40 mg daily, Pulmicort inhaled twice a day, Reglan 10 mg q. 6 hours, Robitussin with Codeine 5 mL q. 6 hours p.r.n. for cough, Rocephin 1 g daily, Singulair 10 mg daily, Solu-Medrol 40 mg q. 8 hours and multivitamins daily. LABORATORY DATA: Shows blood sugar 124, proBNP 670. Microbiology, blood culture, urine culture, there is no growth. IMPRESSION AND PLAN: History of cerebrovascular accident, encephalopathy, seizure disorder, chronic lung disease, interstitial infiltrate, chronic constipation. From pulmonary point of view, doing okay, keep at 45 degrees bronchodilator. Decrease Solu-Medrol to 40 mg q. 12 hours, Discontinue Reglan. Continue stool softener. May discontinue IV fluid. Followup labs in the morning. Out of bed to chair, physical therapy. Thank you and we will follow with you. Erika Newby MD
[2017-09-27] MEDS: Latanoprost 2.5 ml Opht Soln OU SCH (22:07)
--- NOTE | 2017-09-27 23:14 | CP.PCM.PN ---
Subjective - Date & Time of Evaluation Date of Evaluation: 09/27/17 Time of Evaluation: 23:13 - Subjective Subjective: Patient was seen at bedside. Complains of back pain. Has no other complaints now. 87 year old woman was admitted with LUQ, left flank, constipation, left sided pain, chronic cough,interstitial pneumonia. PMH of HTN, shingles, hystrectomy, appendectomy, cholecystectomy, left humeral fracture, chronic interstitial lung disease. Objective - Vital Signs/Intake and Output Vital Signs (last 24 hours): Temp Pulse Resp BP Pulse Ox 98.2 F 77 18 133/69 98 09/27/17 16:26 09/27/17 16:26 09/27/17 16:26 09/27/17 16:26 09/27/17 16:26 Intake and Output: 09/27/17 09/28/17 18:59 06:59 Intake Total 2400 320 Balance 2400 320 - Medications Medications: Current Medications Albuterol/Ipratropium (Duoneb 3 Mg/0.5 Mg (3 Ml) Ud) 3 ml IH [id number] PRN PRN Reason: Shortness of Breath Last Admin: 09/26/17 15:38 Dose: 3 ml Arformoterol Tartrate (Brovana) 15 mcg IH [id number] [facility] Last Admin: 09/27/17 20:06 Dose: 15 mcg Bisacodyl (Dulcolax) 10 mg RC DAILY [facility] Last Admin: 09/27/17 09:34 Dose: 10 mg Budesonide (Pulmicort Respules) 0.5 mg IH [id number] [facility] Last Admin: 09/27/17 20:06 Dose: 0.5 mg Docusate Sodium (Colace) 100 mg PO BID [facility] Last Admin: 09/27/17 17:50 Dose: 100 mg Guaifenesin/Codeine Phosphate (Robitussin W/Codeine) 5 ml PO Q6H PRN PRN Reason: Cough and congestion Last Admin: 09/27/17 19:30 Dose: 5 ml Ceftriaxone Sodium (Rocephin 1 Gram Ivpb) 1 gm in 100 mls @ 100 mls/hr IVPB DAILY [facility] PRN Reason: Protocol Last Admin: 09/27/17 09:52 Dose: 100 mls/hr Ipratropium [place] (Atrovent) 0.5 mg IH [id number] [facility] Last Admin: 09/27/17 21:48 Dose: Not Given Latanoprost (Xalatan Opht) 0 ml OU HS [facility] Last Admin: 09/27/17 22:07 Dose: 2.5 ml Lidocaine (Lidoderm) 1 ea TD DAILY [facility] Last Admin: 09/27/17 16:11 Dose: 1 ea Methylprednisolone (Solu-Medrol) 40 mg IVP Q12 [facility] Last Admin: 09/27/17 22:07 Dose: 40 mg Montelukast Sodium (Singulair) 10 mg PO DAILY [facility] Last Admin: 09/27/17 09:32 Dose: 10 mg Multivitamins (Thera Tab) 1 tab PO DAILY [facility] Last Admin: 09/27/17 09:34 Dose: 1 tab Pantoprazole Sodium (Protonix Ec Tab) 40 mg PO DAILY [facility] Last Admin: 09/27/17 09:34 Dose: 40 mg - Labs Labs: 09/25/17 05:30 09/25/17 05:30 PT 11.7 SECONDS (9.4-12.5) 09/24/17 11:34 INR 1.06 (0.93-1.08) 09/24/17 11:34 APTT 31.3 Seconds (25.1-36.5) 09/24/17 11:34 Micro Results 09/24/17 12:30 Blood-Venous Blood Culture - Final NO GROWTH AFTER 5 DAYS 09/24/17 12:30 Blood-Venous Gram Stain - Final TEST NOT PERFORMED 09/24/17 11:34 Blood-Venous Blood Culture - Final NO GROWTH AFTER 5 DAYS 09/24/17 11:34 Blood-Venous Gram Stain - Final TEST NOT PERFORMED 09/24/17 11:53 Urine,Clean Catch Urine Culture - Final 10-50,000 CFU/ML. MULTIPLE SPECIES. PROBABLE CONTAMINATION. Most Recent Lab Values WBC 8.6 10^3/ul (4.5-11.0) 09/29/17 06:00 RBC 4.16 10^6/uL (3.5-6.1) 09/29/17 06:00 Hgb 12.4 g/dL (12.0-16.0) 09/29/17 06:00 Hct 37.8 % (36.0-48.0) 09/29/17 06:00 MCV 90.9 fl (80.0-105.0) 09/29/17 06:00 MCH 29.8 pg (25.0-35.0) 09/29/17 06:00 MCHC 32.8 g/dl (31.0-37.0) 09/29/17 06:00 RDW 14.3 % (11.5-14.5) 09/29/17 06:00 Plt Count 305 10^3/uL (120.0-450.0) 09/29/17 06:00 MPV 11.4 fl (7.0-11.0) H 09/29/17 06:00 Gran % 51.5 % (50.0-68.0) 09/24/17 11:34 Lymph % (Auto) 21.3 % (22.0-35.0) L 09/24/17 11:34 [place] % (Auto) 8.6 % (1.0-6.0) H 09/24/17 11:34 Eos % (Auto) 18.3 % (1.5-5.0) H 09/24/17 11:34 Baso % (Auto) 0.3 % (0.0-3.0) 09/24/17 11:34 Gran # 4.41 (1.4-6.5) 09/24/17 11:34 Lymph # 1.8 (1.2-3.4) 09/24/17 11:34 [place] # 0.7 (0.1-0.6) H 09/24/17 11:34 Eos # 1.6 (0.0-0.7) H 09/24/17 11:34 Baso # 0.03 K/mm3 (0.0-2.0) 09/24/17 11:34 PT 11.7 SECONDS (9.4-12.5) 09/24/17 11:34 INR 1.06 (0.93-1.08) 09/24/17 11:34 APTT 31.3 Seconds (25.1-36.5) 09/24/17 11:34 Sodium 137 mmol/L (132-148) 09/29/17 06:00 Potassium 4.4 mmol/L (3.6-5.0) 09/29/17 06:00 Chloride 100 mmol/L (98-107) 09/29/17 06:00 Carbon Dioxide 33 mmol/L (21-33) 09/29/17 06:00 Anion Gap 8 (10-20) L 09/29/17 06:00 BUN 17 mg/dL (7-21) 09/29/17 06:00 Creatinine 0.6 mg/dl (0.7-1.2) L 09/29/17 06:00 Est GFR ( Amer) > 60 09/29/17 06:00 Est GFR (Non-Af Amer) > 60 09/29/17 06:00 POC Glucose (mg/dL) 106 mg/dL (65-110) 09/29/17 21:11 Random Glucose 125 mg/dL (70-110) H 09/29/17 06:00 Hemoglobin A1c 5.8 % (4.2-6.5) 09/25/17 05:30 Lactic Acid 0.9 mmol/L (0.7-2.1) 09/24/17 13:06 Calcium 8.9 mg/dL (8.4-10.5) 09/29/17 06:00 Iron 85 ug/dL (45-180) 09/25/17 05:30 TIBC 283.6 ug/dL (250-450) 09/25/17 05:30 % Saturation 30 (20-55) 09/25/17 05:30 Total Bilirubin 1.0 mg/dL (0.2-1.3) 09/24/17 11:34 AST 31 U/L (14-36) 09/24/17 11:34 ALT 30 U/L (7-56) 09/24/17 11:34 Alkaline Phosphatase 81 U/L (38-126) 09/24/17 11:34 Lactate Dehydrogenase 500 U/L (333-699) 09/24/17 11:34 Total Creatine Kinase 56 U/L (35-230) 09/24/17 11:34 Troponin I < 0.01 ng/mL 09/24/17 11:34 NT-Pro-B Natriuret Pep 670 pg/mL (0-450) H 09/27/17 06:55 Total Protein 7.9 g/dL (5.8-8.3) 09/24/17 11:34 Albumin 4.1 g/dL (3.0-4.8) 09/24/17 11:34 Globulin 3.8 gm/dL 09/24/17 11:34 Albumin/Globulin Ratio 1.1 (1.1-1.8) 09/24/17 11:34 Triglycerides 54 mg/dL (35-160) 09/25/17 05:30 Cholesterol 139 mg/dL (130-200) 09/25/17 05:30 LDL Cholesterol Direct 71 mg/dL (0-129) 09/25/17 05:30 HDL Cholesterol 44 mg/dL (29-60) 09/25/17 05:30 Amylase 58 U/L (35-125) 09/24/17 11:34 Lipase 53 U/L (23-300) 09/24/17 11:34 Vitamin B12 593 pg/mL (239-931) 09/25/17 05:30 Folate > 20.0 ng/mL 09/25/17 05:30 Procalcitonin < 0.05 NG/ML (0.19-0.49) L 09/27/17 06:55 TSH 3rd Generation 2.65 mIU/mL (0.46-4.68) 09/25/17 05:30 Urine Color Yellow (YELLOW) 09/24/17 11:53 Urine Appearance Clear (CLEAR) 09/24/17 11:53 Urine pH 7.0 (4.7-8.0) 09/24/17 11:53 Ur Specific Raymond <= 1.005 (1.005-1.035) 09/24/17 11:53 Urine Protein Negative mg/dL (<30 mg/dL) 09/24/17 11:53 Urine Glucose (UA) Negative mg/dL (NEGATIVE) 09/24/17 11:53 Urine Ketones Negative mg/dL (NEGATIVE) 09/24/17 11:53 Urine Blood Trace-lysed (NEGATIVE) H 09/24/17 11:53 Urine Nitrate Negative (NEGATIVE) 09/24/17 11:53 Urine Bilirubin Negative (NEGATIVE) 09/24/17 11:53 Urine Urobilinogen 0.2 E.U./dL (<1 E.U./dL) 09/24/17 11:53 Ur Leukocyte Esterase Negative Starr/uL (NEGATIVE) 09/24/17 11:53 Urine RBC 2 - 5 /hpf (0-2) 09/24/17 11:53 Urine WBC 0 - 2 /hpf (0-6) 09/24/17 11:53 Ur Epithelial Cells 3 - 4 /hpf (0-5) 09/24/17 11:53 Amorphous Sediment Few 09/24/17 11:53 Urine Bacteria Mod (NEG) 09/24/17 11:53 Urine Other Uyeast 09/24/17 11:53 - Constitutional Appears: Well, No Acute Distress - Head Exam Head Exam: ATRAUMATIC, NORMAL INSPECTION, NORMOCEPHALIC - Eye Exam Eye Exam: Normal appearance - ENT Exam ENT Exam: Normal External Ear Exam - Neck Exam Neck Exam: Normal Inspection - Respiratory Exam Respiratory Exam: NORMAL BREATHING PATTERN - Cardiovascular Exam Cardiovascular Exam: absent: JVD - GI/Abdominal Exam GI & Abdominal Exam: absent: Distended - Rectal Exam Rectal Exam: Deferred - Exam Additional comments: Deferred. - Extremities Exam Extremities Exam: Normal Inspection - Back Exam Back Exam: NORMAL INSPECTION - Neurological Exam Neurological Exam: Alert, Awake - Psychiatric Exam Psychiatric exam: Normal Affect, Normal Mood - Skin Skin Exam: Normal Color Assessment and Plan - Assessment and Plan (Free Text) Assessment: Low back pain. HTN. Chronic interstitial lung disease. Hx shingles. Plan: Tylenol 650 mg PO x 1 . Continue present management.
[2017-09-28] MEDS: Ipratropium 0.02% Inhal Soln (0.5 mg/2.5 ml) UD IH SCH ×4 (02:50→20:05)
[2017-09-28] MEDS: guaiFENesin-Codeine 100-10mg/5ml Syrup (5 ml) UD PO PRN (05:32)
[2017-09-28] MEDS: Budesonide 0.5 mg/2 ml Inhal Susp UD IH SCH ×2 (07:38→20:05)
[2017-09-28] MEDS: Arformoterol 15 mcg/2 ml Inh Sol IH SCH ×2 (07:38→20:05)
[2017-09-28] MEDS: cefTRIAXone 1 gm 1 GM/100 ML BAG IVPB SCH (09:59)
[2017-09-28] MEDS: MethylPREDNISolone 40 mg Vial IVP SCH ×2 (10:02→22:35)
--- NOTE | 2017-09-28 10:03 | PN ---
DATE: 09/27/2017 SUBJECTIVE: The patient is an 87-year-old female. The patient is seen and examined on the bedside. Looking comfortable. No nausea, vomiting or diarrhea. No hematuria or hematochezia. No swelling of legs. No chest pain. No palpitation. No headache or dizziness. No fever or chills. Coughing is better. Shortness of breath is better. PHYSICAL EXAMINATION: VITAL SIGNS: Temperature 98.2, pulse 77, blood pressure 133/69 and respiratory rate 18. HEENT: Head is normocephalic and atraumatic. Eyes; PERRLA. Extraocular muscles are intact. Conjunctivae are clear. Nose is patent. Mucous membranes moist. NECK: Supple. No carotid bruits, JVD or thyromegaly. CHEST: Bilaterally symmetrical. HEART: S1 and S2 positive. LUNGS: Clear to auscultation. ABDOMEN: Soft. Bowel sounds present. No organomegaly. EXTREMITIES: No edema. No cyanosis. NEUROLOGIC: The patient is awake and alert. Moving all 4 extremities. No focal deficits. MEDICATIONS: Atrovent, Brovana, Colace, Dulcolax, DuoNeb, Lidoderm, Protonix, Pulmicort, Robitussin, ceftriaxone, Singulair, Solu-Medrol and Xalatan ophthalmic solution. LABORATORY DATA: We do not have labs today, but I reviewed old labs. Glucose 124 and 127. ASSESSMENT AND PLAN: Ms. Kaitlin Altman is an 87-year-old lady with history of cerebrovascular accident, dementia, encephalopathy, seizure disorder, chronic lung disease, interstitial pulmonary infiltrates and history of extremity fracture. PLAN: Continue antibiotics. Discontinue IV fluid, bronchodilators. The patient has constipation. History of fall and deconditioned. Continue bronchodilators, history of aspiration, keep head at 45 degree. Getting tapering dose of Solu-Medrol and Reglan. Continue laxative. Aspiration precaution. We will follow up. Nadira Clemente MD [facility]
[2017-09-28] MEDS: Multivitamin Therapeutic Tab PO SCH (10:05)
[2017-09-28] MEDS: Pantoprazole 40 mg EC Tab PO SCH (10:05)
[2017-09-28] MEDS: Lidocaine 5% Patch TD SCH (10:06)
[2017-09-28] MEDS: Benzocaine/Menthol (Cepacol) Lozenge MT PRN (12:53)
[2017-09-28 17:14] VITALS: RESP 20
[2017-09-28] MEDS: POLYETHYLENE GLYCOL 3350 17 GM/Dose PACKET PO SCH (19:37)
--- NOTE | 2017-09-28 21:24 | PN ---
DATE: 09/28/2017 PULMONARY PROGRESS NOTE REFERRING PHYSICIAN: Dr. Clemente. SUBJECTIVE: The patient is sitting at the side of the bed, feels okay. Decreased cough. No nausea, no vomiting. Has no bowel movements since yesterday. No leg pain or leg swelling. PHYSICAL EXAMINATION: GENERAL: In no acute distress. VITAL SIGNS: Temperature is 98, heart rate is 90, respiratory rate is 20, blood pressure 136/74, pulse ox 97% on 3 liters nasal cannula. HEENT: Moist mucous membranes. Small oral cavity. Crowded airway. NECK: Supple. No JVD. LUNGS: Has bilateral crackles. HEART: S1 and S2. ABDOMEN: Soft, nontender. No organomegaly. EXTREMITIES: There is no edema. NEUROLOGIC: Awake and alert. Follows simple commands. MEDICATIONS: She is on Atrovent inhaled q.6 hours, Brovana inhaled twice a day, Cepacol lozenges q.2 hours p.r.n., Colace 100 mg twice a day, Dulcolax 10 mg rectally daily, DuoNeb q.4 hours p.r.n., Lidoderm patch daily, Protonix 40 mg daily, Pulmicort inhaled twice a day, Robitussin with Codeine 5 mL q.6 hours p.r.n., Rocephin 1 g IV daily, Singulair 10 mg daily, Solu-Medrol 40 mg q.12 hours, multivitamins daily, Tylenol p.r.n. basis. LABORATORY DATA: Data reviewed. Noted blood sugar this morning 128. Microbiology, blood cultures have been negative. IMPRESSION AND PLAN: History of cerebrovascular accident, encephalopathy, seizure disorder, chronic lung disease, interstitial infiltrate, chronic constipation. I spoke to nursing staff. No bowel movement since yesterday. I will restart MiraLax 1 pack twice a day. Continue Dulcolax on a daily basis. Continue steroids, antibiotics, gastric prophylaxis, deep venous thrombosis prophylaxis, fall precaution. Thank you, and we will follow with you. Erika Newby MD
[2017-09-28] MEDS: Latanoprost 2.5 ml Opht Soln OU SCH (22:39)
[2017-09-29] MEDS: Ipratropium 0.02% Inhal Soln (0.5 mg/2.5 ml) UD IH SCH ×4 (01:11→19:21)
[2017-09-29 06:25] LABS: HEMATOCRIT 37.8 % (36.0-48.0); MEAN CELL VOLUME 90.9 fl (80.0-105.0); MEAN CORPUSCULAR HEMOGLOBIN 29.8 pg (25.0-35.0); MEAN CORPUSCULAR HGB CONC 32.8 g/dl (31.0-37.0); MEAN PLATELET VOLUME 11.4 fl (7.0-11.0); RED CELL DISTRIBUTION WIDTH 14.3 % (11.5-14.5); WHITE BLOOD COUNT 8.6 10^3/ul (4.5-11.0)
[2017-09-29 07:16] LABS: BLOOD UREA NITROGEN 17 mg/dL (7-21); CALCIUM 8.9 mg/dL (8.4-10.5); CARBON DIOXIDE 33 mmol/L (21-33); CHLORIDE 100 mmol/L (98-107); GFR AFRICAN-AMERICAN > 60; GLUCOSE,RANDOM 125 mg/dL (70-110); POTASSIUM 4.4 mmol/L (3.6-5.0); SODIUM 137 mmol/L (132-148)
[2017-09-29] MEDS: Arformoterol 15 mcg/2 ml Inh Sol IH SCH ×2 (07:22→19:21)
[2017-09-29] MEDS: Budesonide 0.5 mg/2 ml Inhal Susp UD IH SCH ×2 (07:22→19:21)
--- NOTE | 2017-09-29 08:45 | PN ---
DATE: 09/28/2017 SUBJECTIVE: The patient is an 87-year-old female. The patient is seen and examined on the bedside, looking comfortable, still coughing, having shortness of breath. No nausea, vomiting, or diarrhea. No hematuria or hematochezia. No swelling of the leg. No chest pain. No palpitations. No headache. No dizziness. No fever. No chills. PHYSICAL EXAMINATION: VITAL SIGNS: Temperature 98, heart rate is 90, respiratory rate 20, blood pressure 136/74, pulse oximetry 97% on 3 L nasal canula. HEENT: Head is normocephalic and atraumatic. Eyes, PERRLA. Extraocular muscles are intact. Conjunctivae are clear. Nose is patent. Mucous membranes are moist. NECK: Supple. No carotid bruits, JVD, or thyromegaly. CHEST: Bilaterally symmetrical. HEART: S1, S2 positive. LUNGS: Clear to auscultation. ABDOMEN: Soft. Bowel sounds are present. No organomegaly. EXTREMITIES: No edema. No cyanosis. MEDICATIONS: Atrovent, Brovana, Cepacol lozenges, Colace, Dulcolax, Protonix, Pulmicort, Robitussin, codeine, Rocephin, Singulair, Solu-Medrol. LABORATORY DATA: We do not have recent lab today, but I reviewed old labs and sugar is 128. ASSESSMENT AND PLAN: The patient is an 87-year-old lady with history of cerebrovascular accident, encephalopathy, advanced dementia, seizure disorder, chronic lung disease, interstitial infiltrate, chronic constipation. Doctor advised giving MiraLax 1 tab twice a day. Continue Dulcolax. Continue steroid, antibiotics. Gastrointestinal prophylaxis. Deep venous thrombosis prophylaxis. Fall precautions. My staff had discussion done with patient's son. The patient was seen by Dr. Mcgregor yesterday. Sometimes complaining about back pain. Physical therapy out of bed. We will follow up. Nadira Clemente MD
[2017-09-29] MEDS: MethylPREDNISolone 40 mg Vial IVP SCH ×2 (09:36→22:09)
[2017-09-29] MEDS: Pantoprazole 40 mg EC Tab PO SCH (09:36)
[2017-09-29] MEDS: POLYETHYLENE GLYCOL 3350 17 GM/Dose PACKET PO SCH ×2 (09:36→18:36)
[2017-09-29] MEDS: cefTRIAXone 1 gm 1 GM/100 ML BAG IVPB SCH (09:36)
[2017-09-29] MEDS: Multivitamin Therapeutic Tab PO SCH (09:36)
[2017-09-29] MEDS: Lidocaine 5% Patch TD SCH (10:00)
[2017-09-29] MEDS: Benzocaine/Menthol (Cepacol) Lozenge MT PRN ×2 (10:35→15:54)
[2017-09-29] MEDS: guaiFENesin-Codeine 100-10mg/5ml Syrup (5 ml) UD PO PRN (16:01)
[2017-09-29] MEDS ORDERED: Mineral Oil Enema 135 ml RC ONE (16:39)
--- NOTE | 2017-09-29 17:57 | CP.PCM.CON ---
<Berenice Hernandez - Last Filed: 09/29/17 17:56> History of Present Illness - History of Present Illness History of Present Illness: Seen and examined at the bedside earlier today. Chart was reviewed. Request for GI consult is for constipation. HPI: This is an 87-year-old female with a past medical history of hypertension, chronic constipation, GERD, COPD, on home O2, and renal insufficiency came to the hospital with complaints of constipation, abdominal pain, coughing with phlegm, head x-ray reporting in sister still amelia lung disease. The patient was reported to have bowel movement yesterday and was observed to be small amount that was soft and formed but also appear ribbonlike per nursing staff. No reports of melena or bright red blood per rectum. The patient did have an abdominal x-ray on 09/24 which reported moderate constipation. The patient currently denies nausea, vomiting, shortness of breath or chest pain. No abdominal pain, tolerating oral intake. Patient has been on MiraLax twice a day. PMH: As stated above, including shingles, history of left humerus fracture, history of dilated CBD at 9.5 mm MRCP was done negative for CBD stone. PSH: appendectomy, cholecystectomy, and tubal ligation.06/2014 had EGD /PEG for dysphagia, PEG removed 08/2014 Family history: Noncontributory Social history: denies smoking,etoh,drugs Allergies:acyclovir Medications: Reviewed as per MAR ROS: Systems reviewed with positive findings see HPI. Past Patient History - Tetanus Immunizations Tetanus Immunization: Unknown - Past Social History Smoking Status: Never Smoked - CARDIAC Hx Cardiac Disorders: Yes Hx Hypertension: Yes - PULMONARY Hx Chronic Obstructive Pulmonary Disease (COPD): Yes - NEUROLOGICAL Hx Neurological Disorder: Yes - HEENT Hx HEENT Problems: Yes Hx Cataracts: Yes Hx Glaucoma: Yes - RENAL Hx Chronic Kidney Disease: Yes (RENAL INSUFFICIENCY) - ENDOCRINE/METABOLIC Hx Endocrine Disorders: No - HEMATOLOGICAL/ONCOLOGICAL Hx Blood Disorders: Yes Hx Shingles: Yes (in 2013) - INTEGUMENTARY Hx Dermatological Problems: Yes Other/Comment: shingles - MUSCULOSKELETAL/RHEUMATOLOGICAL Hx Musculoskeletal Disorders: Yes Hx Falls: Yes Hx Fractures: Yes (fx left humerus) - GASTROINTESTINAL Hx Gastrointestinal Disorders: Yes (CONSTIPATION,APPENDECTOMY,) Hx Gall Bladder Disease: Yes (CHOLECYSTECTOMY) Hx Gastroesophageal Reflux: Yes - GENITOURINARY/GYNECOLOGICAL Hx Genitourinary Disorders: Yes Hx Incontinence: Yes Hx Urinary Tract Infection: Yes - PSYCHIATRIC Hx Psychophysiologic Disorder: No Hx Depression: No Hx Emotional Abuse: No Hx Physical Abuse: No Hx Substance Use: No - SURGICAL HISTORY Hx Surgeries: Yes Hx Appendectomy: Yes Hx Cholecystectomy: Yes Other/Comment: FALLOPIAN TUBES - ANESTHESIA Hx Anesthesia: Yes Meds Allergies/Adverse Reactions: Allergies Allergy/AdvReac Type Severity Reaction Status Date / Time acyclovir AdvReac SHORTNESS Verified 09/24/17 21:44 OF BREATH - Medications Medications: Current Medications Acetaminophen (Tylenol 325mg Tab) 650 mg PO Q4H PRN PRN Reason: Headache Last Admin: 09/28/17 22:46 Dose: 650 mg Albuterol/Ipratropium (Duoneb 3 Mg/0.5 Mg (3 Ml) Ud) 3 ml IH [id number] PRN PRN Reason: Shortness of Breath Last Admin: 09/26/17 15:38 Dose: 3 ml Arformoterol Tartrate (Brovana) 15 mcg IH [id number] [facility] Last Admin: 09/29/17 07:22 Dose: 15 mcg Aspirin (Aspirin Chewable) 81 mg PO DAILY [facility] Last Admin: 09/29/17 09:35 Dose: 81 mg Benzocaine/Menthol (Cepacol Sore Throat) 1 aracelis MT Q2H PRN PRN Reason: Sore Throat Last Admin: 09/29/17 15:54 Dose: 1 aracelis Bisacodyl (Dulcolax) 10 mg RC DAILY [facility] Last Admin: 09/29/17 09:36 Dose: 10 mg Budesonide (Pulmicort Respules) 0.5 mg IH [id number] [facility] Last Admin: 09/29/17 07:22 Dose: 0.5 mg Docusate Sodium (Colace) 100 mg PO BID [facility] Last Admin: 09/29/17 09:36 Dose: 100 mg Guaifenesin/Codeine Phosphate (Robitussin W/Codeine) 5 ml PO Q6H PRN PRN Reason: Cough and congestion Last Admin: 09/29/17 16:01 Dose: 5 ml Ceftriaxone Sodium (Rocephin 1 Gram Ivpb) 1 gm in 100 mls @ 100 mls/hr IVPB DAILY [facility] PRN Reason: Protocol Last Admin: 09/29/17 09:36 Dose: 100 mls/hr Ipratropium [place] (Atrovent) 0.5 mg IH [id number] [facility] Last Admin: 09/29/17 13:51 Dose: 0.5 mg Latanoprost (Xalatan Opht) 0 ml OU HS [facility] Last Admin: 09/28/17 22:39 Dose: 2.5 ml Lidocaine (Lidoderm) 1 ea TD DAILY [facility] Last Admin: 09/29/17 10:00 Dose: 1 ea Methylprednisolone (Solu-Medrol) 20 mg IVP Q12 [facility] Metoclopramide HCl (Reglan) 10 mg PO 0600,1130,1630,2200 [facility] Last Admin: 09/29/17 15:54 Dose: 10 mg Montelukast Sodium (Singulair) 10 mg PO DAILY [facility] Last Admin: 09/29/17 09:36 Dose: 10 mg Multivitamins (Thera Tab) 1 tab PO DAILY [facility] Last Admin: 09/29/17 09:36 Dose: 1 tab Pantoprazole Sodium (Protonix Ec Tab) 40 mg PO DAILY [facility] Last Admin: 09/29/17 09:36 Dose: 40 mg Polyethylene Glycol (Miralax) 17 gm PO BID [facility] Last Admin: 09/29/17 09:36 Dose: 17 gm Physical Exam - Constitutional Appears: No Acute Distress - Head Exam Head Exam: NORMOCEPHALIC - Eye Exam Eye Exam: Normal appearance. absent: Scleral icterus - ENT Exam ENT Exam: Mucous Membranes Moist - Neck Exam Neck exam: Positive for: Normal Inspection - Respiratory Exam Respiratory Exam: Decreased Breath Sounds, NORMAL BREATHING PATTERN. absent: Respiratory Distress - Cardiovascular Exam Cardiovascular Exam: +S1, +S2 - GI/Abdominal Exam GI & Abdominal Exam: Normal Bowel Sounds, Soft. absent: Guarding, Tenderness - Extremities Exam Extremities exam: Positive for: pedal pulses present. Negative for: calf tenderness, pedal edema - Neurological Exam Neurological exam: Alert, Oriented x3 - Skin Skin Exam: Dry, Warm Results - Vital Signs Recent Vital Signs: Last Vital Signs Temp 98.2 F 09/29/17 16:00 Pulse 91 H 09/29/17 16:00 Resp 20 09/29/17 16:00 BP 129/66 09/29/17 16:00 Pulse Ox 94 L 09/29/17 16:00 - Labs Result Diagrams: 09/29/17 06:00 09/29/17 06:00 Labs: Laboratory Results - last 24 hr 09/26/17 09/26/17 09/28/17 16:36 21:31 21:28 WBC RBC Hgb Hct MCV MCH MCHC RDW Plt Count MPV Sodium Potassium Chloride Carbon Dioxide Anion Gap BUN Creatinine Est GFR ( Amer) Est GFR (Non-Af Amer) POC Glucose (mg/dL) 133 H 115 H 99 Random Glucose Calcium 09/29/17 09/29/17 09/29/17 06:00 06:00 07:48 WBC 8.6 RBC 4.16 Hgb 12.4 Hct 37.8 MCV 90.9 MCH 29.8 MCHC 32.8 RDW 14.3 Plt Count 305 MPV 11.4 H Sodium 137 Potassium 4.4 Chloride 100 Carbon Dioxide 33 Anion Gap 8 L BUN 17 Creatinine 0.6 L Est GFR ( Amer) > 60 Est GFR (Non-Af Amer) > 60 POC Glucose (mg/dL) 114 H Random Glucose 125 H Calcium 8.9 09/29/17 15:45 WBC RBC Hgb Hct MCV MCH MCHC RDW Plt Count MPV Sodium Potassium Chloride Carbon Dioxide Anion Gap BUN Creatinine Est GFR ( Amer) Est GFR (Non-Af Amer) POC Glucose (mg/dL) 106 Random Glucose Calcium Assessment & Plan - Assessment and Plan (Free Text) Assessment: Assessment: Chronic constipation COPD, status post chest x-r showed diffuse interstitial infiltrates History of dementia History of hypertension GERD Plan: Diet as tolerated Continue MiraLAX BID, on Colace and Dulcolax, hold for diarrhea On Solu-Medrol On IV antibiotic, ceftriaxone Continue PPI On aspirin Thank you for this consult and for allowing us to participate in your patient' s care, further recommendation based upon clinical course. Seen and discussed with Dr. Epperson. <Chandrakant Epperson V - Last Filed: 09/29/17 21:10> Meds - Medications Medications: Current Medications Acetaminophen (Tylenol 325mg Tab) 650 mg PO Q4H PRN PRN Reason: Headache Last Admin: 09/28/17 22:46 Dose: 650 mg Albuterol/Ipratropium (Duoneb 3 Mg/0.5 Mg (3 Ml) Ud) 3 ml IH [id number] PRN PRN Reason: Shortness of Breath Last Admin: 09/26/17 15:38 Dose: 3 ml Arformoterol Tartrate (Brovana) 15 mcg IH [id number] [facility] Last Admin: 09/29/17 19:21 Dose: 15 mcg Aspirin (Aspirin Chewable) 81 mg PO DAILY [facility] Last Admin: 09/29/17 09:35 Dose: 81 mg Benzocaine/Menthol (Cepacol Sore Throat) 1 aracelis MT Q2H PRN PRN Reason: Sore Throat Last Admin: 09/29/17 15:54 Dose: 1 aracelis Bisacodyl (Dulcolax) 10 mg RC DAILY [facility] Last Admin: 09/29/17 09:36 Dose: 10 mg Budesonide (Pulmicort Respules) 0.5 mg IH [id number] [facility] Last Admin: 09/29/17 19:21 Dose: 0.5 mg Docusate Sodium (Colace) 100 mg PO BID [facility] Last Admin: 09/29/17 18:35 Dose: 100 mg Guaifenesin/Codeine Phosphate (Robitussin W/Codeine) 5 ml PO Q6H PRN PRN Reason: Cough and congestion Last Admin: 09/29/17 16:01 Dose: 5 ml Ceftriaxone Sodium (Rocephin 1 Gram Ivpb) 1 gm in 100 mls @ 100 mls/hr IVPB DAILY [facility] PRN Reason: Protocol Last Admin: 09/29/17 09:36 Dose: 100 mls/hr Ipratropium [place] (Atrovent) 0.5 mg IH [id number] [facility] Last Admin: 09/29/17 19:21 Dose: 0.5 mg Latanoprost (Xalatan Opht) 0 ml OU HS [facility] Last Admin: 09/28/17 22:39 Dose: 2.5 ml Lidocaine (Lidoderm) 1 ea TD DAILY [facility] Last Admin: 09/29/17 10:00 Dose: 1 ea Methylprednisolone (Solu-Medrol) 20 mg IVP Q12 [facility] Metoclopramide HCl (Reglan) 10 mg PO 0600,1130,1630,2200 [facility] Last Admin: 09/29/17 15:54 Dose: 10 mg Montelukast Sodium (Singulair) 10 mg PO DAILY [facility] Last Admin: 09/29/17 09:36 Dose: 10 mg Multivitamins (Thera Tab) 1 tab PO DAILY [facility] Last Admin: 09/29/17 09:36 Dose: 1 tab Pantoprazole Sodium (Protonix Ec Tab) 40 mg PO DAILY [facility] Last Admin: 09/29/17 09:36 Dose: 40 mg Polyethylene Glycol (Miralax) 17 gm PO BID [facility] Last Admin: 09/29/17 18:36 Dose: 17 gm Results - Vital Signs Recent Vital Signs: Last Vital Signs Temp 98.2 F 09/29/17 16:00 Pulse 91 H 09/29/17 16:00 Resp 20 09/29/17 16:00 BP 129/66 09/29/17 16:00 Pulse Ox 94 L 09/29/17 16:00 - Labs Result Diagrams: 09/29/17 06:00 09/29/17 06:00 Labs: Laboratory Results - last 24 hr 09/26/17 09/26/17 09/28/17 16:36 21:31 21:28 WBC RBC Hgb Hct MCV MCH MCHC RDW Plt Count MPV Sodium Potassium Chloride Carbon Dioxide Anion Gap BUN Creatinine Est GFR ( Amer) Est GFR (Non-Af Amer) POC Glucose (mg/dL) 133 H 115 H 99 Random Glucose Calcium 09/29/17 09/29/17 09/29/17 06:00 06:00 07:48 WBC 8.6 RBC 4.16 Hgb 12.4 Hct 37.8 MCV 90.9 MCH 29.8 MCHC 32.8 RDW 14.3 Plt Count 305 MPV 11.4 H Sodium 137 Potassium 4.4 Chloride 100 Carbon Dioxide 33 Anion Gap 8 L BUN 17 Creatinine 0.6 L Est GFR ( Amer) > 60 Est GFR (Non-Af Amer) > 60 POC Glucose (mg/dL) 114 H Random Glucose 125 H Calcium 8.9 09/29/17 15:45 WBC RBC Hgb Hct MCV MCH MCHC RDW Plt Count MPV Sodium Potassium Chloride Carbon Dioxide Anion Gap BUN Creatinine Est GFR ( Amer) Est GFR (Non-Af Amer) POC Glucose (mg/dL) 106 Random Glucose Calcium Attending/Attestation - Attestation I have personally seen and examined this patient.: Yes I have fully participated in the care of the patient.: Yes I have reviewed all pertinent clinical information: Yes Notes (Text): this patient was seen and evaluated earlier. This is an addendum to the GI consultation report dictated by Berenice Hernandez APN. Discussed with the patient's son was at bedside Abdominal x-ray was reviewed On examination of her abdomen softly distended no tenderness Patient is been on laxatives at home and recent worsening of the symptoms. Rule out colonic lesion rule out partial obstruction would request CT with by mouth contrast Thank you very much for allowing us to participate in the care of the patient 09/29/17 21:07
[2017-09-29] MEDS: Latanoprost 2.5 ml Opht Soln OU SCH (22:10)
--- NOTE | 2017-09-29 22:44 | CP.PCM.PN ---
<Sandy Wilkinson - Last Filed: 09/29/17 22:40> Subjective - Date & Time of Evaluation Date of Evaluation: 09/29/17 Time of Evaluation: 10:00 - Subjective Subjective: 87yr female with h/o COPD, HTN, cataracts, glaucoma, CVA, Renal insufficency, GERD, appendectomy, cholecystectomy, hysterecetomy, L humeral fracture, chronic interstitial lung disease on home O2. She is laying in her bed comfortably. Cane noted at pt bedside. She reports relief from her cough with Robitussin w/ codeine & Cepastat lozenges. She also states some relief from her constipation. She denies any N/V, diarrhea, chills, urinary changes, or distress. Objective - Vital Signs/Intake and Output Vital Signs (last 24 hours): Temp Pulse Resp BP Pulse Ox 98.2 F 91 H 20 129/66 94 L 09/29/17 16:00 09/29/17 16:00 09/29/17 16:00 09/29/17 16:00 09/29/17 16:00 Intake and Output: 09/29/17 09/30/17 18:59 06:59 Intake Total 660 Balance 660 - Medications Medications: Current Medications Acetaminophen (Tylenol 325mg Tab) 650 mg PO Q4H PRN PRN Reason: Headache Last Admin: 09/28/17 22:46 Dose: 650 mg Albuterol/Ipratropium (Duoneb 3 Mg/0.5 Mg (3 Ml) Ud) 3 ml IH [id number] PRN PRN Reason: Shortness of Breath Last Admin: 09/26/17 15:38 Dose: 3 ml Arformoterol Tartrate (Brovana) 15 mcg IH [id number] [facility] Last Admin: 09/29/17 19:21 Dose: 15 mcg Aspirin (Aspirin Chewable) 81 mg PO DAILY [facility] Last Admin: 09/29/17 09:35 Dose: 81 mg Benzocaine/Menthol (Cepacol Sore Throat) 1 aracelis MT Q2H PRN PRN Reason: Sore Throat Last Admin: 09/29/17 15:54 Dose: 1 aracelis Bisacodyl (Dulcolax) 10 mg RC DAILY [facility] Last Admin: 09/29/17 09:36 Dose: 10 mg Budesonide (Pulmicort Respules) 0.5 mg IH [id number] [facility] Last Admin: 09/29/17 19:21 Dose: 0.5 mg Docusate Sodium (Colace) 100 mg PO BID [facility] Last Admin: 09/29/17 18:35 Dose: 100 mg Guaifenesin/Codeine Phosphate (Robitussin W/Codeine) 5 ml PO Q6H PRN PRN Reason: Cough and congestion Last Admin: 09/29/17 16:01 Dose: 5 ml Ceftriaxone Sodium (Rocephin 1 Gram Ivpb) 1 gm in 100 mls @ 100 mls/hr IVPB DAILY [facility] PRN Reason: Protocol Last Admin: 09/29/17 09:36 Dose: 100 mls/hr Ipratropium [place] (Atrovent) 0.5 mg IH [id number] [facility] Last Admin: 09/29/17 19:21 Dose: 0.5 mg Latanoprost (Xalatan Opht) 0 ml OU HS [facility] Last Admin: 09/29/17 22:10 Dose: 2.5 ml Lidocaine (Lidoderm) 1 ea TD DAILY [facility] Last Admin: 09/29/17 10:00 Dose: 1 ea Methylprednisolone (Solu-Medrol) 20 mg IVP Q12 [facility] Last Admin: 09/29/17 22:09 Dose: 20 mg Metoclopramide HCl (Reglan) 10 mg PO 0600,1130,1630,2200 [facility] Last Admin: 09/29/17 22:08 Dose: 10 mg Montelukast Sodium (Singulair) 10 mg PO DAILY [facility] Last Admin: 09/29/17 09:36 Dose: 10 mg Multivitamins (Thera Tab) 1 tab PO DAILY [facility] Last Admin: 09/29/17 09:36 Dose: 1 tab Pantoprazole Sodium (Protonix Ec Tab) 40 mg PO DAILY [facility] Last Admin: 09/29/17 09:36 Dose: 40 mg Polyethylene Glycol (Miralax) 17 gm PO BID [facility] Last Admin: 09/29/17 18:36 Dose: 17 gm - Labs Labs: 09/29/17 06:00 09/29/17 06:00 PT 11.7 SECONDS (9.4-12.5) 09/24/17 11:34 INR 1.06 (0.93-1.08) 09/24/17 11:34 APTT 31.3 Seconds (25.1-36.5) 09/24/17 11:34 - Constitutional Appears: Well - Head Exam Head Exam: ATRAUMATIC, NORMOCEPHALIC - Eye Exam Eye Exam: Normal appearance Pupil Exam: NORMAL ACCOMODATION - ENT Exam ENT Exam: Mucous Membranes Moist - Neck Exam Neck Exam: Full ROM, Normal Inspection - Respiratory Exam Respiratory Exam: Clear to Ausculation Bilateral, NORMAL BREATHING PATTERN - Cardiovascular Exam Cardiovascular Exam: REGULAR RHYTHM, +S1, +S2 - GI/Abdominal Exam GI & Abdominal Exam: Soft, Normal Bowel Sounds - Rectal Exam Rectal Exam: NORMAL INSPECTION - Extremities Exam Extremities Exam: Normal Inspection Additional comments: weakness BLE, unsteady gait, uses cane. - Back Exam Back Exam: NORMAL INSPECTION - Neurological Exam Neurological Exam: Alert, Awake, Normal Gait - Psychiatric Exam Psychiatric exam: Normal Affect, Normal Mood - Skin Skin Exam: Dry, Intact, Normal Color, Warm Assessment and Plan (1) Interstitial pneumonia Status: Acute (2) Cough Status: Acute (3) Constipation Status: Chronic (4) GERD (gastroesophageal reflux disease) Status: Chronic (5) Glaucoma Status: Chronic - Assessment and Plan (Free Text) Plan: Plan to send her to [facility] for closer monitoring while patient continues antibiotics and tapers off large doses of solumedryl IV. Reviewed: CXR (+) diffuse interstitial infiltrate <Nadira Clemente - Last Filed: 09/30/17 16:05> Objective - Vital Signs/Intake and Output Vital Signs (last 24 hours): Temp Pulse Resp BP Pulse Ox 97.8 F 71 20 120/64 98 09/30/17 06:00 09/30/17 06:00 09/30/17 06:00 09/30/17 06:00 09/30/17 06:00 Intake and Output: 09/30/17 09/30/17 06:59 18:59 Intake Total 661 240 Balance 661 240 - Medications Medications: Current Medications Acetaminophen (Tylenol 325mg Tab) 650 mg PO Q4H PRN PRN Reason: Headache Last Admin: 09/28/17 22:46 Dose: 650 mg Albuterol/Ipratropium (Duoneb 3 Mg/0.5 Mg (3 Ml) Ud) 3 ml IH [id number] PRN PRN Reason: Shortness of Breath Last Admin: 09/26/17 15:38 Dose: 3 ml Aspirin (Aspirin Chewable) 81 mg PO DAILY [facility] Last Admin: 09/30/17 11:13 Dose: 81 mg Benzocaine/Menthol (Cepacol Sore Throat) 1 aracelis MT Q2H PRN PRN Reason: Sore Throat Last Admin: 09/29/17 15:54 Dose: 1 aracelis Bisacodyl (Dulcolax) 10 mg RC DAILY [facility] Last Admin: 09/30/17 11:13 Dose: 10 mg Budesonide (Pulmicort Respules) 0.5 mg IH [id number] [facility] Last Admin: 09/30/17 08:11 Dose: 0.5 mg Docusate Sodium (Colace) 100 mg PO BID [facility] Last Admin: 09/30/17 11:11 Dose: 100 mg Guaifenesin/Dextromethorphan (Robitussin Dm) 10 ml PO Q4H PRN PRN Reason: Cough Latanoprost (Xalatan Opht) 0 ml OU HS [facility] Last Admin: 09/29/17 22:10 Dose: 2.5 ml Lidocaine (Lidoderm) 1 ea TD DAILY [facility] Last Admin: 09/30/17 11:10 Dose: 1 ea Methylprednisolone (Solu-Medrol) 20 mg IVP Q12 [facility] Last Admin: 09/30/17 11:10 Dose: 20 mg Metoclopramide HCl (Reglan) 10 mg PO 0600,1130,1630,2200 [facility] Last Admin: 09/30/17 11:11 Dose: 10 mg Montelukast Sodium (Singulair) 10 mg PO DAILY [facility] Last Admin: 09/30/17 11:11 Dose: 10 mg Multivitamins (Thera Tab) 1 tab PO DAILY [facility] Last Admin: 09/30/17 11:11 Dose: 1 tab Pantoprazole Sodium (Protonix Ec Tab) 40 mg PO DAILY [facility] Last Admin: 09/30/17 11:11 Dose: 40 mg Polyethylene Glycol (Miralax) 17 gm PO BID [facility] Last Admin: 09/30/17 11:14 Dose: 17 gm - Labs Labs: 09/29/17 06:00 09/29/17 06:00 PT 11.7 SECONDS (9.4-12.5) 09/24/17 11:34 INR 1.06 (0.93-1.08) 09/24/17 11:34 APTT 31.3 Seconds (25.1-36.5) 09/24/17 11:34 Assessment and Plan - Assessment and Plan (Free Text) Plan: pt is s/e at bed side , agreed all above , 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 chart , meds , labs noted , cont. present treatment
[2017-09-30] MEDS: Ipratropium 0.02% Inhal Soln (0.5 mg/2.5 ml) UD IH SCH ×2 (01:59→08:10)
--- NOTE | 2017-09-30 02:35 | PN ---
PULMONARY PROGRESS NOTE DATE: 09/29/2017 REFERRING PHYSICIAN: Nadira Clemente MD SUBJECTIVE: The patient is sitting at the side of the bed. Night was unremarkable. Still have no bowel movements last 3 days. Breathing is better. Decreased cough. Decreased shortness of breath. No nausea. No leg pain or leg swelling. PHYSICAL EXAMINATION: GENERAL: In no acute distress. VITAL SIGNS: Temperature is 98, heart rate is 91, respiratory rate is 20, blood pressure is 129/66, and pulse oximetry is 96% on 2 L nasal cannula. HEENT: Moist mucous membranes. Crowded airway. NECK: Supple. No JVD. LUNGS: Has crackles. HEART: S1 and S2. ABDOMEN: Soft and nontender. No organomegaly. EXTREMITIES: There is no edema. NEUROLOGIC: Awake and alert. Follows simple commands. MEDICATIONS: She is on aspirin 81 mg daily, 0.5 mg q.6 hours p.r.n., Brovana inhaled twice a day, Cepacol lozenges q.2 hours p.r.n., Colace 100 mg twice a day, Dulcolax 10 mg rectally, DuoNeb q.4 hours p.r.n., Lidoderm patch daily, MiraLax 17 g twice a day, Protonix 40 mg daily, Pulmicort inhaled twice a day, Reglan 10 mg q.i.d., Robitussin with Codeine 5 mL q.6 hours p.r.n., Rocephin 1 g IV daily, Singulair 10 mg daily, Solu-Medrol 20 mg q.12 hours, multivitamins daily, and Tylenol p.r.n. LABORATORY DATA: Shows hemoglobin 12.4, hematocrit 37.8, WBC 8.6, and platelet is 305. Sodium 137, potassium 4.4, chloride 100, bicarbonate 33, BUN 17, creatinine 0.6, glucose is 106, and calcium is 8.9. Microbiology; blood culture and urine culture, there is no growth. IMPRESSION AND PLAN: Chronic obstructive lung disease with exacerbation, history of cerebrovascular accident, encephalopathy, seizure disorder, interstitial infiltrate, and colonic constipation. I spoke to nursing staff. We will give her mineral oil enema. Continue MiraLax. Continue Dulcolax. Continue Reglan. Continue IV steroids and antibiotics. Thank you and we will follow with you. Erika Newby MD
[2017-09-30] MEDS: guaiFENesin-Codeine 100-10mg/5ml Syrup (5 ml) UD PO PRN (03:55)
[2017-09-30] MEDS ORDERED: Barium Sulfate Susp 2.1% w/v, 2.0% w/w 450 mL Bottle PO ONE (07:05)
[2017-09-30] MEDS: Budesonide 0.5 mg/2 ml Inhal Susp UD IH SCH ×2 (08:11→20:15)
[2017-09-30] MEDS: Arformoterol 15 mcg/2 ml Inh Sol IH SCH (08:11)
[2017-09-30] MEDS: Lidocaine 5% Patch TD SCH (11:10)
[2017-09-30] MEDS: MethylPREDNISolone 40 mg Vial IVP SCH (11:10)
[2017-09-30] MEDS: Pantoprazole 40 mg EC Tab PO SCH (11:11)
[2017-09-30] MEDS: Multivitamin Therapeutic Tab PO SCH (11:11)
[2017-09-30] MEDS: POLYETHYLENE GLYCOL 3350 17 GM/Dose PACKET PO SCH ×2 (11:14→17:11)
--- NOTE | 2017-09-30 13:02 | CT ---
PROCEDURE: CT Abdomen and Pelvis without intravenous contrast HISTORY: abdominal distention, constipation r/0 partial obs COMPARISON: None. TECHNIQUE: Without contrast.. Contrast Dose: Radiation dose: Total exam DLP = 512 mGy-cm. This CT exam was performed using one or more of the following dose reduction techniques: Automated exposure control, adjustment of the mA and/or kV according to patient size, and/or use of iterative reconstruction technique. FINDINGS: LOWER THORAX: Unremarkable. LIVER: Unremarkable. No gross lesion or ductal dilatation. GALLBLADDER AND BILE DUCTS: Gallbladder removed. Common duct dilated PANCREAS: Unremarkable. No gross lesion or ductal dilatation. SPLEEN: Unremarkable. ADRENALS: Unremarkable. No mass. KIDNEYS AND URETERS: Unremarkable. No hydronephrosis. No solid mass. VASCULATURE: Unremarkable. No aortic aneurysm. BOWEL: There is severe constipation in the right side of the colon and the transverse colon. The small bowel is normal in caliber. There is diverticulosis of the sigmoid colon. APPENDIX: Unremarkable. Normal appendix. PERITONEUM: Unremarkable. No free fluid. No free air. LYMPH NODES: Unremarkable. No enlarged lymph nodes. BLADDER: Unremarkable. REPRODUCTIVE: Unremarkable. BONES: Severe spondylolisthesis of L5-S1 OTHER FINDINGS: None. IMPRESSION: There is severe constipation in the right side of the colon and the transverse colon. The small bowel is normal in caliber. There is diverticulosis of the sigmoid colon.
[2017-09-30] MEDS ORDERED: guaiFENesin DM 200 mg-20 mg/10 ml UD PO PRN (14:56)
[2017-09-30] MEDS ORDERED: Magnesium Citrate Oral SOL (300 ml) PO ONE (15:33)
--- NOTE | 2017-09-30 15:35 | CP.PCM.PN ---
Subjective - Date & Time of Evaluation Date of Evaluation: 09/30/17 Time of Evaluation: 10:20 - Subjective Subjective: Seen and examined at the bedside earlier this morning, chart was reviewed. Patient drinking CT scan oral contrast, no complaint of nausea, vomiting, or abdominal pain. Patient denies BM last night or this morning. No acute overnight events reported as per nursing staff. Objective - Vital Signs/Intake and Output Vital Signs (last 24 hours): Temp Pulse Resp BP Pulse Ox 97.8 F 71 20 120/64 98 09/30/17 06:00 09/30/17 06:00 09/30/17 06:00 09/30/17 06:00 09/30/17 06:00 Intake and Output: 09/30/17 09/30/17 06:59 18:59 Intake Total 661 Balance 661 - Medications Medications: Current Medications Acetaminophen (Tylenol 325mg Tab) 650 mg PO Q4H PRN PRN Reason: Headache Last Admin: 09/28/17 22:46 Dose: 650 mg Albuterol/Ipratropium (Duoneb 3 Mg/0.5 Mg (3 Ml) Ud) 3 ml IH [id number] PRN PRN Reason: Shortness of Breath Last Admin: 09/26/17 15:38 Dose: 3 ml Aspirin (Aspirin Chewable) 81 mg PO DAILY [facility] Last Admin: 09/30/17 11:13 Dose: 81 mg Benzocaine/Menthol (Cepacol Sore Throat) 1 aracelis MT Q2H PRN PRN Reason: Sore Throat Last Admin: 09/29/17 15:54 Dose: 1 aracelis Bisacodyl (Dulcolax) 10 mg RC DAILY [facility] Last Admin: 09/30/17 11:13 Dose: 10 mg Budesonide (Pulmicort Respules) 0.5 mg IH [id number] [facility] Last Admin: 09/30/17 08:11 Dose: 0.5 mg Docusate Sodium (Colace) 100 mg PO BID [facility] Last Admin: 09/30/17 11:11 Dose: 100 mg Guaifenesin/Codeine Phosphate (Robitussin W/Codeine) 5 ml PO Q6H PRN PRN Reason: Cough and congestion Last Admin: 09/30/17 03:55 Dose: 5 ml Latanoprost (Xalatan Opht) 0 ml OU HS [facility] Last Admin: 09/29/17 22:10 Dose: 2.5 ml Lidocaine (Lidoderm) 1 ea TD DAILY [facility] Last Admin: 09/30/17 11:10 Dose: 1 ea Methylprednisolone (Solu-Medrol) 20 mg IVP Q12 [facility] Last Admin: 09/30/17 11:10 Dose: 20 mg Metoclopramide HCl (Reglan) 10 mg PO 0600,1130,1630,2200 [facility] Last Admin: 09/30/17 11:11 Dose: 10 mg Montelukast Sodium (Singulair) 10 mg PO DAILY [facility] Last Admin: 09/30/17 11:11 Dose: 10 mg Multivitamins (Thera Tab) 1 tab PO DAILY [facility] Last Admin: 09/30/17 11:11 Dose: 1 tab Pantoprazole Sodium (Protonix Ec Tab) 40 mg PO DAILY [facility] Last Admin: 09/30/17 11:11 Dose: 40 mg Polyethylene Glycol (Miralax) 17 gm PO BID [facility] Last Admin: 09/30/17 11:14 Dose: 17 gm - Labs Labs: 09/29/17 06:00 09/29/17 06:00 PT 11.7 SECONDS (9.4-12.5) 09/24/17 11:34 INR 1.06 (0.93-1.08) 09/24/17 11:34 APTT 31.3 Seconds (25.1-36.5) 09/24/17 11:34 - Constitutional Appears: No Acute Distress - Head Exam Head Exam: NORMOCEPHALIC - Eye Exam Eye Exam: Normal appearance. absent: Scleral icterus - ENT Exam ENT Exam: Mucous Membranes Moist - Neck Exam Neck Exam: Normal Inspection - Respiratory Exam Respiratory Exam: NORMAL BREATHING PATTERN. absent: Respiratory Distress - Cardiovascular Exam Cardiovascular Exam: +S1, +S2 - GI/Abdominal Exam GI & Abdominal Exam: Distended, Soft, Tenderness, Normal Bowel Sounds. absent: Guarding, Rebound Additional comments: mild tenderness to left upper quadrant - Extremities Exam Extremities Exam: Normal Capillary Refill. absent: Calf Tenderness, Pedal Edema - Neurological Exam Neurological Exam: Alert, Awake, Oriented x3 - Skin Skin Exam: Dry, Warm Assessment and Plan - Assessment and Plan (Free Text) Assessment: Assessment: Chronic constipation, status post CT scan shows severe constipation on right side and transverse colon Diverticulosis COPD, status post chest x-r showed diffuse interstitial infiltrates History of dementia History of hypertension GERD Plan: Diet as tolerated give dose of magnesium citrate continue Miralax BID/colace On Solu-Medrol On IV antibiotic, ceftriaxone Continue PPI On aspirin if no improvement may need colonoscopy Seen and discussed with Dr. Epperson.
--- NOTE | 2017-09-30 15:51 | PN ---
PULMONARY PROGRESS NOTE DATE: 09/30/2017 REFERRING PHYSICIAN: Dr. Clemente. SUBJECTIVE: She is lying in the bed. Head at 45 degrees. Night was unremarkable. Still claims no bowel movement. No headache. No rhinitis. Mild cough. No nausea. No leg pain or leg swelling. OBJECTIVE: GENERAL: In no acute distress. VITAL SIGNS: Temperature is 98, heart rate 71, respiratory 20, blood pressure 120/64 and pulse ox 98% on 2 L of nasal cannula. HEENT: Moist mucus membrane. Small oral cavity. Crowded airway. NECK: Supple. No JVD. LUNGS: Scattered crackles. HEART: S1 and S2. ABDOMEN: Soft. Positive bowel sounds. EXTREMITIES: There is no edema. NEUROLOGIC: Awake and alert. Follows simple commands. MEDICATIONS: She is on aspirin 81 mg daily, Cepacol lozenges q. 2 hours p.r.n., Colace 100 mg twice a day, Dulcolax 10 mg rectally daily, DuoNeb q. 6 hours, Lidoderm patch to affected area, MiraLax 17 g twice a day, Protonix 40 mg daily, Pulmicort inhaled twice a day, Reglan 10 mg q.i.d., Robitussin with Codeine 5 mL q. 6 hours p.r.n. for cough, Singulair 10 mg daily, Solu-Medrol 20 mg q. 12 hours, multivitamin daily and Tylenol p.r.n. basis. LABORATORY DATA: Reviewed. Blood sugar is 97. Microbiology; blood culture and urine culture there is no growth. CT of the abdomen and pelvis done which shows there is a severe constipation in the right side of the colon and transverse colon. The small bowel is normal in caliber. There is diverticulosis of the sigmoid colon. IMPRESSION AND PLAN: Chronic obstructive lung disease with exacerbation, history of cerebrovascular accident, encephalopathy, seizure disorder, interstitial infiltrate, chronic constipation. Will request GI to see the patient for severe constipation. Keep head elevated at 45 degrees. Will discontinue Robitussin with Codeine and give simple Robitussin p.r.n. basis. Thank you and we will follow with you. Erika Newby MD
[2017-09-30 18:56] VITALS: BP 124/65; PULSE 79; TEMP 98.1; O2SAT 100
[2017-09-30] MEDS: Albuterol-Ipratrop 3 mg / 0.5 (3 ml) UD IH PRN (20:15)
== END 2017-09-30 21:40 | disposition home or self-care (01) | DRG 190 ==
LOC: ED 10:48 → ERH 16:18 → 3RNO 17:49
PROVIDERS: ADMIT Internal Medicine; ATTEND Internal Medicine
DX: J44.1 Chronic obstructive pulmonary disease with (acute) exacerbation (principal); G93.40 Encephalopathy, unspecified; J18.9 Pneumonia, unspecified organism; J84.9 Interstitial pulmonary disease, unspecified; G40.909 Epilepsy, unspecified, not intractable, without status epilepticus; F03.90 Unspecified dementia, unspecified severity, without behavioral disturbance, psychotic disturbance, mood disturbance, and anxiety; Z99.81 Dependence on supplemental oxygen; J44.0 Chronic obstructive pulmonary disease with (acute) lower respiratory infection; Z86.73 Personal history of transient ischemic attack (TIA), and cerebral infarction without residual deficits; K59.09 Other constipation; I12.9 Hypertensive chronic kidney disease with stage 1 through stage 4 chronic kidney disease, or unspecified chronic kidney disease; N18.9 Chronic kidney disease, unspecified; E78.5 Hyperlipidemia, unspecified; H40.9 Unspecified glaucoma; K21.9 Gastro-esophageal reflux disease without esophagitis; K57.90 Diverticulosis of intestine, part unspecified, without perforation or abscess without bleeding; Z87.440 Personal history of urinary (tract) infections; Z86.19 Personal history of other infectious and parasitic diseases; Z90.49 Acquired absence of other specified parts of digestive tract; Z87.81 Personal history of (healed) traumatic fracture; R40.2412 Glasgow coma scale score 13-15, at arrival to emergency department; Z90.710 Acquired absence of both cervix and uterus; Z91.81 History of falling; R32 Unspecified urinary incontinence; Z88.3 Allergy status to other anti-infective agents

== ENCOUNTER 2017-10-04 11:47 | Emergency (ER) | payer MEDICARE, MEDICAID ==
[2017-10-04 11:48] VITALS: BMI 25.2
[2017-10-04 12:04] VITALS: O2SAT 95
[2017-10-04 12:57] LABS: BASO # 0.02 K/mm3 (0.0-2.0); BASO % 0.2 % (0.0-3.0); EOS # 0.3 (0.0-0.7); EOS % 2.2 % (1.5-5.0); GRAN # 9.05 (1.4-6.5); GRAN % 77.8 % (50.0-68.0); HEMATOCRIT 40.8 % (36.0-48.0); LYMPH # 1.1 (1.2-3.4); MEAN CELL VOLUME 91.7 fl (80.0-105.0); MEAN CORPUSCULAR HEMOGLOBIN 30.3 pg (25.0-35.0); MEAN CORPUSCULAR HGB CONC 33.1 g/dl (31.0-37.0); MEAN PLATELET VOLUME 11.3 fl (7.0-11.0); MONO # 1.3 (0.1-0.6); MONO % 10.8 % (1.0-6.0); RED CELL DISTRIBUTION WIDTH 14.4 % (11.5-14.5); WHITE BLOOD COUNT 11.6 10^3/ul (4.5-11.0)
[2017-10-04 13:40] LABS: ALB/GLOB RATIO 1.3 (1.1-1.8); ALKALINE PHOSPHATASE 89 U/L (38-126); ALT/SGPT 43 U/L (7-56); AST/SGOT 29 U/L (14-36); BLOOD UREA NITROGEN 13 mg/dL (7-21); CALCIUM 9.5 mg/dL (8.4-10.5); CARBON DIOXIDE 31 mmol/L (21-33); CHLORIDE 94 mmol/L (98-107); GFR AFRICAN-AMERICAN > 60; GLUCOSE,RANDOM 123 mg/dL (70-110); LIPASE 70 U/L (23-300); POTASSIUM 4.7 mmol/L (3.6-5.0); SODIUM 133 mmol/L (132-148)
[2017-10-04 14:12] LABS: URINE BILIRUBIN NEGATIVE (NEGATIVE); URINE BLOOD NEGATIVE (NEGATIVE); URINE GLUCOSE (UA) NEGATIVE (NEGATIVE); URINE KETONE 15 mg/dL (NEGATIVE); URINE LEUKOCYTE ESTERASE SMALL Leu/uL (NEGATIVE); URINE PROTEIN NEGATIVE mg/dL (<30 mg/dL); URINE UROBILINOGEN 0.2 E.U./dL (<1 E.U./dL)
[2017-10-04 14:15] LABS: URINE APPEARANCE CLEAR (CLEAR); URINE COLOR YELLOW (YELLOW)
[2017-10-04 14:22] LABS: URINE RBC 0 - 2 /hpf (0-2); URINE WBC 0 - 2 /hpf (0-6)
[2017-10-04 14:23] LABS: URINE BACTERIA SMALL (NEG); URINE EPITHELIAL CELLS 0 - 2 /hpf (0-5)
[2017-10-04 14:53] VITALS: BP 133/81; PULSE 85; RESP 19; TEMP 97.9
--- NOTE | 2017-10-04 15:32 | RAD ---
PROCEDURE: Radiographs of the Lumbar Spine. HISTORY: diffuse lower back pain COMPARISON: No prior. FINDINGS: BONES: There is severe spondylolisthesis at L5-S1. There is bilateral spondylolysis at L5. This is better demonstrated on the recent CT scan of the abdomen and pelvis. DISC SPACES: Loss of the disc space at L5-S1 OTHER FINDINGS: None. IMPRESSION: Severe spondylolisthesis at L5-S1
--- NOTE | 2017-10-04 16:22 | ED PDOC ---
Arrival/HPI - General Chief Complaint: Back Pain Time Seen by Provider: 10/04/17 12:09 Historian: Patient - History of Present Illness Narrative History of Present Illness (Text): 10/04/17 12:30 A 87 year old female, whose past medical history includes appendectomy, cholecystectomy, hysterectomy, left humeral fracture, chronic interstitial lung disease on 02 (recent ct chest w/ contrast shows chronic ILD), presents to the emergency department complaining of lower back pain for 4 days. Patient reports she was discharged from hospital 1 week ago for pneumonia and constipation. States constipation has improved. Patient denies any fall, trauma, bowel bladder dysfunction, satel anesthesia, hematuria, bloody stool, or any other complaints. No PMD Time/Duration: < week (4 days) Symptom Onset: Sudden Symptom Course: Unchanged Past Medical History - Provider Review Nursing Documentation Reviewed: Yes - Past History Past History: Unable to Obtain - Tetanus Immunization Tetanus Immunization: Unknown - Reproductive Menopause: Yes - Cardiac Hx Cardiac Disorders: Yes Hx Hypertension: Yes - Pulmonary Hx Chronic Obstructive Pulmonary Disease (COPD): Yes - Neurological Hx Neurological Disorder: Yes - HEENT Hx HEENT Disorder: Yes Hx Cataracts: Yes Hx Glaucoma: Yes - Renal Hx Renal Disorder: Yes (RENAL INSUFFICIENCY) - Endocrine/Metabolic Hx Endocrine Disorders: No - Hematological/Oncological Hx Blood Disorders: Yes Hx Shingles: Yes (in 2013) - Integumentary Hx Dermatological Disorder: Yes Other/Comment: shingles - Musculoskeletal/Rheumatological Hx Musculoskeletal Disorders: Yes Hx Falls: Yes Hx Fractures: Yes (fx left humerus) - Gastrointestinal Hx Gastrointestinal Disorders: Yes (CONSTIPATION,APPENDECTOMY,) Hx Gall Bladder Disease: Yes (CHOLECYSTECTOMY) Hx Gastroesophageal Reflux: Yes - Genitourinary/Gynecological Hx Genitourinary Disorders: Yes Hx Incontinence: Yes Hx Urinary Tract Infection: Yes - Psychiatric Hx Psychophysiologic Disorder: No Hx Depression: No Hx Emotional Abuse: No Hx Physical Abuse: No Hx Substance Use: No - Surgical History Hx Appendectomy: Yes Hx Cholecystectomy: Yes Other/Comment: FALLOPIAN TUBES - Anesthesia Hx Anesthesia: Yes - Suicidal Assessment Feels Threatened In Home Enviroment: No Family/Social History - Physician Review Nursing Documentation Reviewed: Yes Family/Social History: No Known Family HX Smoking Status: Never Smoked Hx Alcohol Use: Yes (OCCASIONAL H/O) Hx Substance Use: No Hx Substance Use Treatment: No Allergies/Home Meds Allergies/Adverse Reactions: Allergies acyclovir Adverse Reaction (Verified 10/04/17 12:02) SHORTNESS OF BREATH Home Medications: Home Meds Medication Instructions Recorded Confirmed Docusate [Colace] 1 cap PO DAILY 09/24/17 10/04/17 Esomeprazole Magnesium [Nexium] 40 mg PO DAILY 09/24/17 10/04/17 Latanoprost 0.005% Opht [Xalatan 1 drop OU HS 09/24/17 10/04/17 Opht] Montelukast [Singulair] 10 mg PO DAILY 09/24/17 10/04/17 Multivitamin/Iron/Folic Acid 1 tab PO DAILY 09/24/17 10/04/17 [Centrum Adults Tablet] Review of Systems - Physician Review All systems were reviewed & negative as marked: Yes - Review of Systems Constitutional: absent: Other (no fall or trauma) Gastrointestinal: Stool Changes (bloody stool). absent: Other (no bowel bladder dysfunction or satel anesthesia) Genitourinary Female: absent: Hematuria Musculoskeletal: Back Pain (lower back pain) Physical Exam Vital Signs Reviewed: Yes Vital Signs Temp Pulse Resp BP Pulse Ox 10/04/17 13:48 97.9 F 85 19 133/81 95 10/04/17 11:59 97.5 F L 98 H 18 133/77 95 10/04/17 11:48 97.5 F L 98 H 18 133/77 95 Temperature: Afebrile Blood Pressure: Normal Pulse: Regular Respiratory Rate: Normal Appearance: Positive for: Well-Appearing Pain Distress: None Mental Status: Positive for: Alert and Oriented X 3 - Systems Exam Head: Present: Atraumatic, Normocephalic Pupils: Present: PERRL Extroacular Muscles: Present: EOMI Conjunctiva: Present: Normal Mouth: Present: Moist Mucous Membranes Neck: Present: Normal Range of Motion Respiratory/Chest: Present: Clear to Auscultation, Good Air Exchange. No: Respiratory Distress, Accessory Muscle Use Cardiovascular: Present: Regular Rate and Rhythm, Normal S1, S2. No: Murmurs Abdomen: Present: Normal Bowel Sounds. No: Tenderness, Distention, Peritoneal Signs Back: Present: Other (diffused lower back tenderness) Upper Extremity: Present: Normal Inspection. No: Cyanosis, Edema Lower Extremity: Present: Normal Inspection. No: Edema Neurological: Present: GCS=15, CN II-XII Intact, Speech Normal Skin: Present: Warm, Dry, Normal Color. No: Rashes Psychiatric: Present: Alert, Oriented x 3, Normal Insight, Normal Concentration Medical Decision Making ED Course and Treatment: 10/04/17 12:35 Impression: 87 year old female with lower back pain. Physical exam shows diffused lower back tenderness; rest of exam is unremarkable. Plan: -- Lumbar Spinal X-Ray -- Labs -- Flexeril -- Toradol -- Urine Culture -- Urinalysis -- Reassess and disposition Prior Visits: Notes and results from previous visits were reviewed. Patient was last seen in the emergency department on 09/24/2017 for constipation LUQ and left flank pain excerbated by movement. Patient was admitted. Progress Notes: 10/04/2017 15:30 Lumbar Spinal X-Ray IMPRESSION: Severe spondylolisthesis at L5-S1. Dictator: Aleksey Ybarra MD 10/04/2017 17:30 Before d/c, patient felt better after given medication. Patient given prescription for constipation and UTI. Patient is to follow-up with PMD. - Lab Interpretations Lab Results: 10/04/17 12:45 10/04/17 12:45 Lab Results 10/04/17 13:45: Urine Color Yellow, Urine Appearance Clear, Urine pH 8.0, Ur Specific [place] 1.010, Urine Protein Negative, Urine Glucose (UA) Negative, Urine Ketones 15 H, Urine Blood Negative, Urine Nitrate Negative, Urine Bilirubin Negative, Urine Urobilinogen 0.2, Ur Leukocyte Esterase Small H, Urine RBC 0 - 2, Urine WBC 0 - 2, Ur Epithelial Cells 0 - 2, Urine Bacteria Small 10/04/17 12:45: Sodium 133, Potassium 4.7, Chloride 94 L, Carbon Dioxide 31, Anion Gap 13, BUN 13, Creatinine 0.6 L, Est GFR ( Amer) > 60, Est GFR ( Non-Af Amer) > 60, Random Glucose 123 H, Calcium 9.5, Total Bilirubin 1.0, AST 29, ALT 43, Alkaline Phosphatase 89, Total Protein 7.0, Albumin 3.9, Globulin 3.1, Albumin/Globulin Ratio 1.3, Lipase 70 10/04/17 12:45: WBC 11.6 H D, RBC 4.45, Hgb 13.5, Hct 40.8, MCV 91.7, MCH 30.3, MCHC 33.1, RDW 14.4, Plt Count 297, MPV 11.3 H, Gran % 77.8 H, Lymph % (Auto) 9.0 L, [place] % (Auto) 10.8 H, Eos % (Auto) 2.2, Baso % (Auto) 0.2, Gran # 9.05 H , Lymph # 1.1 L, [place] # 1.3 H, Eos # 0.3, Baso # 0.02 I have reviewed the lab results: Yes - RAD Interpretation Radiology Orders: 10/04/17 12:29 LS SPINE WITH OBL > 18 YRS OLD [RAD] Stat - Medication Orders Current Medication Orders: Discontinued Medications Cyclobenzaprine HCl (Flexeril) 5 mg PO STAT STA Stop: 10/04/17 12:36 Last Admin: 10/04/17 12:45 Dose: 5 mg Ketorolac Tromethamine (Toradol) 30 mg IVP STAT STA Stop: 10/04/17 12:27 Last Admin: 10/04/17 12:42 Dose: 30 mg MAR Pain Assessment Document 10/04/17 12:42 SRE (Rec: 10/04/17 12:44 SRE [id number]) Pain Reassessment Is this a pain reassessment? Yes Sleep Is patient sleeping during reassessment? No Presence of Pain Presence of Pain Yes Pain Scale Used Pain Scale Used Numeric Location Pain Location Body Site Back Description Description Constant IVP Administration Document 10/04/17 12:42 SRE (Rec: 10/04/17 12:44 SRE [id number]) Charges for Administration # of IVP Administrations 1 - Scribe Statement The provider has reviewed the documentation as recorded by the Bry Stovall Provider Scribe Attestation: All medical record entries made by the Bry were at my direction and personally dictated by me. I have reviewed the chart and agree that the record accurately reflects my personal performance of the history, physical exam, medical decision making, and the department course for this patient. I have also personally directed, reviewed, and agree with the discharge instructions and disposition. Disposition/Present on Arrival - Present on Arrival Any Indicators Present on Arrival: No History of DVT/PE: No History of Uncontrolled Diabetes: No Urinary Catheter: No History of Decub. Ulcer: No History Surgical Site Infection Following: None - Disposition Have Diagnosis and Disposition been Completed?: Yes Diagnosis: Constipation, UTI (urinary tract infection), Lower back pain Disposition: HOME/ ROUTINE Disposition Time: 14:45 Condition: IMPROVED Discharge Instructions (ExitCare): Constipation (ED), Urinary Tract Infection in Women (ED), Acute Low Back Pain (ED) Print Language: MALAGASY Additional Instructions: Thank you for letting us take care of you today. The emergency medical care you received today was directed at your acute symptoms. If you were prescribed any medication, please fill it and take as directed. It may take several days for your symptoms to resolve. Return to the Emergency Department if your symptoms worsen, do not improve, or if you have any other problems. Please contact your doctor or call one of the physicians/clinics you have been referred to that are listed on the Patient Visit Information form that is included in your discharge packet. Bring any paperwork you were given at discharge with you along with any medications you are taking to your follow up visit. Our treatment cannot replace ongoing medical care by a primary care provider (PCP) outside of the emergency department. Thank you for allowing the [facility] team to be part of your care today. Follow up with your doctor in 2-3 days for re-evaluation and further management. Prescriptions: Cyclobenzaprine [Cyclobenzaprine HCl] 5 mg PO Q8 PRN #20 tab PRN Reason: Muscle Spasm Docusate [Colace] 100 mg PO Q8 PRN #20 cap PRN Reason: Constipation Ibuprofen [Motrin] 600 mg PO Q6 PRN #20 tab PRN Reason: Pain, Moderate (4-7) Nitrofurantoin Macrocrystals [Macrobid] 100 mg PO BID #10 cap Referrals: Nadira Clemente MD [Staff Provider] - Follow up with primary Forms: [employer] (Lao)
== END 2017-10-04 15:38 | disposition home or self-care (01) ==
LOC: ED 11:47
DX: K59.00 Constipation, unspecified (principal); N39.0 Urinary tract infection, site not specified; M54.5 Low back pain; I10 Essential (primary) hypertension; J44.9 Chronic obstructive pulmonary disease, unspecified
CPT/HCPCS: 72110; 80053; 81001; 83690; 85025; 87086; 96374; 99283; J1885

== ENCOUNTER 2017-10-23 12:54 | Inpatient (IN) | payer MEDICAID, MEDICARE ==
[2017-10-23] MEDS ORDERED: Albuterol 0.5% Inhal Sol (2.5 mg/0.5 ml) UD IH STA (13:13)
[2017-10-23] MEDS ORDERED: Ipratropium 0.02% Inhal Soln (0.5 mg/2.5 ml) UD IH STA ×2 (13:13→15:55)
[2017-10-23 13:41] LABS: VENOUS BLOOD GAS BASE EXCESS 3.2 mmol/L (0.0-2.0); VENOUS BLOOD PH 7.31 (7.32-7.43)
[2017-10-23 13:42] LABS: BASO # 0.03 K/mm3 (0.0-2.0); BASO % 0.3 % (0.0-3.0); EOS # 0.4 (0.0-0.7); EOS % 4.1 % (1.5-5.0); GRAN # 7.97 (1.4-6.5); GRAN % 77.4 % (50.0-68.0); HEMATOCRIT 39.5 % (36.0-48.0); LYMPH # 0.9 (1.2-3.4); LYMPH % 9.1 % (22.0-35.0); MEAN CELL VOLUME 90.2 fl (80.0-105.0); MEAN CORPUSCULAR HEMOGLOBIN 29.9 pg (25.0-35.0); MEAN CORPUSCULAR HGB CONC 33.2 g/dl (31.0-37.0); MEAN PLATELET VOLUME 9.5 fl (7.0-11.0); MONO # 0.9 (0.1-0.6); MONO % 9.1 % (1.0-6.0); WHITE BLOOD COUNT 10.3 10^3/ul (4.5-11.0)
--- NOTE | 2017-10-23 13:43 | ED PDOC ---
Arrival/HPI - General Chief Complaint: Shortness Of Breath Time Seen by Provider: 10/23/17 13:12 Historian: Patient - History of Present Illness Narrative History of Present Illness (Text): 10/23/17 13:00 Kaitlin Altman is an 87 year old female, whose past medical history includes hypertension, COPD (on 3L home O2), renal insufficiency, and GERD, who presents to the emergency department complaining of increasingly persistent rhonchorous cough for several days. Additonally, patient reports having episodes of anxiety over the last few days and respiratory distress. Upon arrival patient was at 73% on 2L of O2 and increased to 5L on 83% currently. Patient denies other complaints. PMD: Dr. Newby 10/23/17 15:43 Time/Duration: < week Symptom Onset: Gradual Symptom Course: Worsening Context: Home Past Medical History - Provider Review Nursing Documentation Reviewed: Yes - Past History Past History: Unable to Obtain - Infectious Disease Hx of Infectious Diseases: None - Tetanus Immunization Tetanus Immunization: Unknown - Cardiac Hx Cardiac Disorders: Yes Hx Hypertension: Yes - Pulmonary Hx Chronic Obstructive Pulmonary Disease (COPD): Yes - Neurological Hx Neurological Disorder: Yes - HEENT Hx HEENT Disorder: Yes Hx Cataracts: Yes Hx Glaucoma: Yes - Renal Hx Renal Disorder: Yes (RENAL INSUFFICIENCY) - Endocrine/Metabolic Hx Endocrine Disorders: No - Hematological/Oncological Hx Blood Disorders: Yes Hx Shingles: Yes (in 2013) - Integumentary Hx Dermatological Disorder: No - Musculoskeletal/Rheumatological Hx Musculoskeletal Disorders: Yes Hx Falls: Yes Hx Fractures: Yes (fx left humerus) - Gastrointestinal Hx Gastrointestinal Disorders: Yes (CONSTIPATION,APPENDECTOMY,) Hx Gall Bladder Disease: Yes (CHOLECYSTECTOMY) Hx Gastroesophageal Reflux: Yes - Genitourinary/Gynecological Hx Genitourinary Disorders: Yes Hx Incontinence: Yes Hx Urinary Tract Infection: Yes - Psychiatric Hx Psychophysiologic Disorder: No Hx Depression: No Hx Emotional Abuse: No Hx Physical Abuse: No Hx Substance Use: No - Surgical History Hx Appendectomy: Yes Hx Cholecystectomy: Yes Other/Comment: FALLOPIAN TUBES - Anesthesia Hx Anesthesia: Yes - Suicidal Assessment Feels Threatened In Home Enviroment: No Family/Social History - Physician Review Nursing Documentation Reviewed: Yes Family/Social History: Unknown Family HX Smoking Status: Never Smoked Hx Alcohol Use: Yes (OCCASIONAL H/O) Hx Substance Use: No Hx Substance Use Treatment: No Allergies/Home Meds Allergies/Adverse Reactions: Allergies acyclovir Adverse Reaction (Verified 10/23/17 13:05) SHORTNESS OF BREATH Home Medications: Home Meds Medication Instructions Recorded Confirmed Unobtainable 10/23/17 10/23/17 Review of Systems - Review of Systems Systems not reviewed;Unavailable: Respiratory Distress Constitutional: Fatigue Respiratory: SOB, Cough Cardiovascular: absent: Chest Pain Gastrointestinal: absent: Abdominal Pain, Diarrhea, Nausea, Vomiting Genitourinary Female: absent: Dysuria, Frequency Musculoskeletal: absent: Back Pain Skin: absent: Rash Neurological: absent: Headache Psychiatric: Anxiety Physical Exam Vital Signs Reviewed: Yes Vital Signs Temp Pulse Resp BP Pulse Ox 10/23/17 13:24 26 H 10/23/17 13:22 98.3 F 97 H 16 110/57 L 88 L Temperature: Afebrile Blood Pressure: Hypotensive Pulse: Tachycardic Respiratory Rate: Mechanically Ventilated Appearance: Positive for: Well-Appearing, Non-Toxic Pain Distress: None Mental Status: Positive for: Alert and Oriented X 3 - Systems Exam Head: Present: Atraumatic, Normocephalic Pupils: Present: PERRL Extroacular Muscles: Present: EOMI Conjunctiva: Present: Normal Mouth: Present: Moist Mucous Membranes Respiratory/Chest: Present: Decreased Breath Sounds (decreased breath bibasilar) , Rhonchi (scattered rhonci ), Tachypneic. No: Clear to Auscultation, Good Air Exchange, Respiratory Distress, Accessory Muscle Use Cardiovascular: Present: Regular Rate and Rhythm, Normal S1, S2. No: Murmurs Abdomen: Present: Normal Bowel Sounds. No: Tenderness, Distention, Peritoneal Signs Lower Extremity: Present: Edema (trace of edema bilaterally ). No: Normal Inspection Neurological: Present: GCS=15, CN II-XII Intact, Speech Normal Skin: Present: Warm, Dry, Normal Color. No: Rashes Psychiatric: Present: Alert, Normal Insight, Normal Concentration. No: Oriented x 3 (Oriented x 2 (person and place) ) Medical Decision Making ED Course and Treatment: 10/23/17 Impression: 87 year old female who is frail, mildly anxious, tachypnic, with scattered rhonci, and decreased breath bibasilar. She is alert and oriented x2 to person and place. Abdomen is soft non tender and she is (+) for trace of edema bilaterally on lower extremities. Plan: -- EKG -- Chest X-ray -- Labs -- Urinalysis -- ALbuterol, Atrovent, Solu-medrol -- Reassess and disposition Progress Notes: 10/23/17 14:40 Chest X-ray: Creator : Aleksey Woodson MD COMPARISON: 09/24/2017 FINDINGS: LUNGS: Chronic interstitial changes are seen consistent with fibrosis PLEURA: No significant pleural effusion identified, no pneumothorax apparent. CARDIOVASCULAR: Mild cardiomegaly and mild vascular congestion. OSSEOUS STRUCTURES: No significant abnormalities. VISUALIZED UPPER ABDOMEN: Normal. OTHER FINDINGS: None. IMPRESSION: Chronic pulmonary fibrosis. 10/23/17 15:43 Given increasing 02 demands, increasingly persisitent cough, episodic desaturation, pt will need admissio for copd exacerbation /iv antibiotics/ glucocorticoids/pulmonalogyc onsultation until she has been stabilized. - Lab Interpretations Lab Results: 10/23/17 13:25 10/23/17 13:25 Lab Results 10/23/17 13:50: Urine Color Yellow, Urine Appearance Sl cloudy, Urine pH 7.0, Ur Specific [place] 1.010, Urine Protein Trace H, Urine Glucose (UA) Negative, Urine Ketones Negative, Urine Blood Trace-intact H, Urine Nitrate Negative, Urine Bilirubin Negative, Urine Urobilinogen 0.2, Ur Leukocyte Esterase Small H , Urine RBC 0 - 2, Urine WBC 0 - 2, Ur Epithelial Cells 4 - 5 10/23/17 13:25: Sodium 135, Chloride 98, Potassium 4.3, Carbon Dioxide 29, Anion Gap 13, BUN 7, Creatinine 0.6 L, Est GFR ( Amer) > 60, Est GFR (Non -Af Amer) > 60, Random Glucose 154 H, Calcium 9.1, Total Bilirubin 0.9, AST 26, ALT 28, Alkaline Phosphatase 118, Lactate Dehydrogenase 649, Total Creatine Kinase 27 L, Troponin I 0.03 D, NT-Pro-B Natriuret Pep 4230 H, Total Protein 7.2, Albumin 3.6, Globulin 3.6, Albumin/Globulin Ratio 1.0 L 10/23/17 13:25: pO2 27 L, VBG pH 7.31 L, VBG pCO2 62.0 H, VBG HCO3 31.2 H, VBG Total CO2 33.1 H, VBG O2 Sat (Calc) 53.0, VBG Base Excess 3.2 H, VBG Potassium 3.7, Sodium 135.0, Chloride 99.0, Glucose 152 H, Lactate 1.6, FiO2 21.0, Venous Blood Potassium 3.7 10/23/17 13:25: PT 15.3 H, INR 1.39 H, APTT 31.9 10/23/17 13:25: WBC 10.3, RBC 4.38, Hgb 13.1, Hct 39.5, MCV 90.2, MCH 29.9, MCHC 33.2, RDW 14.0, Plt Count 389, MPV 9.5, Gran % 77.4 H, Lymph % (Auto) 9.1 L , Bay % (Auto) 9.1 H, Eos % (Auto) 4.1, Baso % (Auto) 0.3, Gran # 7.97 H, Lymph # 0.9 L, Bay # 0.9 H, Eos # 0.4, Baso # 0.03 I have reviewed the lab results: Yes - RAD Interpretation Radiology Orders: 10/23/17 13:13 CHEST PORTABLE [RAD] Stat Bench Assembler Electrical: Radiologist - EKG Interpretation Interpreted by ED Physician: Yes Type: 12 lead EKG - Medication Orders Current Medication Orders: Discontinued Medications Albuterol Sulfate (Albuterol 0.5% Inhal Jil (2.5 Mg/0.5 Ml) Ud) 2.5 mg IH STAT STA Stop: 10/23/17 13:14 Last Admin: 10/23/17 13:37 Dose: 2.5 mg Ipratropium [place] (Atrovent) 0.5 mg IH STAT STA Stop: 10/23/17 13:14 Last Admin: 10/23/17 13:37 Dose: 0.5 mg Methylprednisolone (Solu-Medrol) 125 mg IVP STAT STA Stop: 10/23/17 13:14 Last Admin: 10/23/17 13:37 Dose: 125 mg IVP Administration Document 10/23/17 13:37 (Rec: 10/23/17 13:37 [id number]) Charges for Administration # of IVP Administrations 1 - Scribe Statement The provider has reviewed the documentation as recorded by the Bry Miller Provider Scribe Attestation: All medical record entries made by the Scribe were at my direction and personally dictated by me. I have reviewed the chart and agree that the record accurately reflects my personal performance of the history, physical exam, medical decision making, and the department course for this patient. I have also personally directed, reviewed, and agree with the discharge instructions and disposition. Disposition/Present on Arrival - Present on Arrival Any Indicators Present on Arrival: No History of DVT/PE: No History of Uncontrolled Diabetes: No Urinary Catheter: No History of Decub. Ulcer: No History Surgical Site Infection Following: None - Disposition Have Diagnosis and Disposition been Completed?: Yes Diagnosis: COPD with acute exacerbation Disposition: HOSPITALIZED Disposition Time: 15:46 Patient Plan: Admission Condition: FAIR Referrals: Nadira Clemente MD [Primary Care Provider] - Follow up with primary Forms: [employer] ([place])
[2017-10-23 14:02] LABS: ALKALINE PHOSPHATASE 118 U/L (38-126); ALT/SGPT 28 U/L (7-56); AST/SGOT 26 U/L (14-36); BILIRUBIN,TOTAL 0.9 mg/dL (0.2-1.3); BLOOD UREA NITROGEN 7 mg/dL (7-21); CALCIUM 9.1 mg/dL (8.4-10.5); CARBON DIOXIDE 29 mmol/L (21-33); CHLORIDE 98 mmol/L (98-107); GFR AFRICAN-AMERICAN > 60; GLUCOSE,RANDOM 154 mg/dL (70-110); INR 1.39 (0.93-1.08); PARTIAL THROMBOPLASTIN TIME 31.9 Seconds (25.1-36.5); POTASSIUM 4.3 mmol/L (3.6-5.0); SODIUM 135 mmol/L (132-148); TOTAL PROTEIN 7.2 g/dL (5.8-8.3)
[2017-10-23 14:04] LABS: URINE BILIRUBIN NEGATIVE (NEGATIVE); URINE BLOOD TRACE-INTACT (NEGATIVE); URINE GLUCOSE (UA) NEGATIVE (NEGATIVE); URINE KETONE NEGATIVE (NEGATIVE); URINE LEUKOCYTE ESTERASE SMALL Leu/uL (NEGATIVE); URINE PROTEIN TRACE mg/dL (<30 mg/dL); URINE UROBILINOGEN 0.2 E.U./dL (<1 E.U./dL)
[2017-10-23 14:05] LABS: TROPONIN I 0.03 ng/mL
[2017-10-23 14:14] LABS: URINE APPEARANCE SL CLOUDY (CLEAR); URINE COLOR YELLOW (YELLOW)
[2017-10-23 14:16] LABS: URINE RBC 0 - 2 /hpf (0-2); URINE WBC 0 - 2 /hpf (0-6)
--- NOTE | 2017-10-23 14:36 | RAD ---
HISTORY: luis causey COMPARISON: 09/24/2017 FINDINGS: LUNGS: Chronic interstitial changes are seen consistent with fibrosis PLEURA: No significant pleural effusion identified, no pneumothorax apparent. CARDIOVASCULAR: Mild cardiomegaly and mild vascular congestion. OSSEOUS STRUCTURES: No significant abnormalities. VISUALIZED UPPER ABDOMEN: Normal. OTHER FINDINGS: None. IMPRESSION: Chronic pulmonary fibrosis.
[2017-10-23] MEDS ORDERED: Albuterol 0.083% Inhal Sol (2.5 mg/3 mL) UD INH STA (15:55)
[2017-10-23] MEDS ORDERED: cefTRIAXone 1 gm 1 GM/100 ML BAG IVPB SCH (17:15)
--- NOTE | 2017-10-23 18:14 | CARD ---
APPROVED REPORT EKG Measurement Heart [id number] <Conclusion> Normal sinus rhythm T wave abnormality, consider inferior & anterior ischemia Prolonged QT Abnormal ECG
[2017-10-23] MEDS: Albuterol-Ipratrop 3 mg / 0.5 (3 ml) UD IH SCH (20:59)
[2017-10-23] MEDS: Budesonide 0.5 mg/2 ml Inhal Susp UD IH SCH (20:59)
[2017-10-23] MEDS: Arformoterol 15 mcg/2 ml Inh Sol IH SCH (20:59)
[2017-10-23] MEDS: MethylPREDNISolone 40 mg Vial IVP SCH (21:50)
[2017-10-23 22:05] VITALS: BMI 32.9
--- NOTE | 2017-10-23 22:22 | HP ---
CHIEF COMPLAINT: Shortness of breath, abdominal pain. HISTORY OF PRESENT ILLNESS: Ms. Kaitlin Altman, 87 years old female with past medical history of hypertension; COPD, getting oxygen at home; renal insufficiency; GERD; dyspepsia; history of chronic constipation; came to the emergency room complaining of increasing and persistent cough for several days. Additionally, the patient reports having episode of anxiety over the past few days and respiratory distress. Upon arrival, the patient was 73% on 2 L oxygen and 83% on 3 to 5 L. The patient denies other complaints. No hematuria or hematochezia. No swelling of the leg. No chest pain. No palpitation. No headache. No dizziness. PAST MEDICAL HISTORY: History of hypertension, COPD, dementia, chronic constipation, cataract, glaucoma, renal insufficiency, shingles, fall, fracture of the left humerus, appendectomy, cholecystectomy, urine incontinence, FAMILY HISTORY: Father and mother, noncontributory. HABITS: Never smoked. No drugs. Ethanol occasionally. ALLERGIES: ACYCLOVIR. HOME MEDICATIONS: Reviewed by me. REVIEW OF SYSTEMS: The patient is seen and examined on the bedside, the telemetry with Ventimask. Son was sitting on the bedside also. The patient is feeling fatigue, shortness of breath, coughing, and abdominal pain. No nausea or vomiting. No fever. No chills. PHYSICAL EXAMINATION: VITAL SIGNS: Temperature 98.3, pulse 97, respiratory rate 16, blood pressure 110/57, pulse oximetry 88. HEENT: Head normocephalic, atraumatic. Eyes PERRLA. Extraocular muscles intact. Conjunctivae clear. Nose patent. Mucous membranes moist. NECK: Supple. No carotid bruit. No JVD or thyromegaly. CHEST: Bilaterally symmetrical. LUNGS: Positive wheezing bilaterally. ABDOMEN: Soft. No organomegaly. Bowel sounds are positive. EXTREMITIES: No edema. No cyanosis. NEUROLOGICAL: The patient is awake, alert. Moving all 4 extremities. No focal deficits. LABORATORY DATA: White blood cells 10.3, hemoglobin 13.1, hematocrit 39.5, platelets 389. Sodium noted ,potassium 4.3, BUN 7, creatinine 0.6, glucose 154. ASSESSMENT AND PLAN: Ms. Kaitlin Altman, 87 years old lady, with hyperglycemia, uncontrolled diabetes mellitus, came with exacerbation of chronic obstructive pulmonary disease, asthma, history of constipation, hypertension, history of dementia, losing weight, history of cataract and glaucoma, history of renal insufficiency, history of shingles, fall, history of left humerus fracture. The patient was started on DuoNeb, Solu-Medrol, Ventimask, gastrointestinal and deep venous thrombosis prophylaxis. Repeat labs. We will follow up. Nadira Clemente MD MTDD
[2017-10-23] MEDS: guaiFENesin-Codeine 100-10mg/5ml Syrup (5 ml) UD PO PRN (23:49)
[2017-10-24] MEDS: Albuterol-Ipratrop 3 mg / 0.5 (3 ml) UD IH SCH ×4 (01:14→19:22)
[2017-10-24 07:18] LABS: HEMATOCRIT 36.6 % (36.0-48.0); MEAN CELL VOLUME 89.3 fl (80.0-105.0); MEAN CORPUSCULAR HEMOGLOBIN 29.5 pg (25.0-35.0); MEAN CORPUSCULAR HGB CONC 33.1 g/dl (31.0-37.0); MEAN PLATELET VOLUME 9.8 fl (7.0-11.0); RED CELL DISTRIBUTION WIDTH 14.1 % (11.5-14.5); WHITE BLOOD COUNT 6.3 10^3/ul (4.5-11.0)
[2017-10-24 07:41] LABS: BLOOD UREA NITROGEN 7 mg/dL (7-21); CALCIUM 8.6 mg/dL (8.4-10.5); CARBON DIOXIDE 29 mmol/L (21-33); CHLORIDE 98 mmol/L (98-107); GFR AFRICAN-AMERICAN > 60; GLUCOSE,RANDOM 156 mg/dL (70-110); POTASSIUM 3.5 mmol/L (3.6-5.0); SODIUM 136 mmol/L (132-148)
[2017-10-24] MEDS: Arformoterol 15 mcg/2 ml Inh Sol IH SCH ×2 (07:53→19:22)
[2017-10-24] MEDS: Budesonide 0.5 mg/2 ml Inhal Susp UD IH SCH ×2 (07:53→19:22)
[2017-10-24 08:13] LABS: CHOLESTEROL 127 mg/dL (130-200)
[2017-10-24 08:23] LABS: IRON 23 ug/dL (45-180)
[2017-10-24] MEDS: MethylPREDNISolone 40 mg Vial IVP SCH ×2 (11:20→21:51)
--- NOTE | 2017-10-24 11:20 | RAD ---
HISTORY: abdominal pain COMPARISON: No prior. FINDINGS: BOWEL: Normal. No obstruction. No free air. BONES: Normal. OTHER FINDINGS: None. IMPRESSION: No active disease.
[2017-10-24 12:59] LABS: FOLATE 17.5 ng/mL
--- NOTE | 2017-10-24 15:05 | CARD ---
APPROVED REPORT EXAM: Two-dimensional and M-mode echocardiogram with Doppler and color Doppler. INDICATION 2D DIMENSIONS IVSd0.9 (0.7-1.1cm)LVDd3.3 (3.9-5.9cm) PWd1.0 (0.7-1.1cm)LVDs2.1 (2.5-4.0cm) FS (%) 35.2 %LVEF (%)65.8 (>50%) M-Mode DIMENSIONS Left Atrium (MM)4.80 (2.5-4.0cm)Aortic Root3.00 (2.2-3.7cm) Aortic Cusp Exc.1.60 (1.5-2.0cm) Aortic Valve AoV Peak Zahhrilj743.0cm/Justo Peak GR.8mmHg Mitral Valve MV E Bhfcpqsi43.0cm/sMV A Krpathfj149.0cm/sE/A ratio0.6 TDI Lateral E' Peak V9.05cm/sMedial E' Peak V5.99cm/sE/Lateral E'7.5 E/Medial E'11.4 Tricuspid Valve TR Peak Npfqoybi380yq/sRAP [id number] Peak Gr.43mmHg [id number] LEFT VENTRICLE The left ventricle is normal size. There is normal left ventricular wall thickness. The left ventricular function is normal. The left ventricular ejection fraction is within the normal range. There is normal LV segmental wall motion. Transmitral Doppler flow pattern is Grade I-abnormal relaxation pattern. RIGHT VENTRICLE The right ventricle is borderline dilated.RV Systolic function is mildly reduced. There is normal right ventricular wall thickness. RV Systolic function is mildly reduced. ATRIA The left atrium is mildly dilated. The right atrium is mildly dilated. AORTIC VALVE The aortic valve is mildly thickened. No aortic regurgitation is present. There is no aortic valvular stenosis. MITRAL VALVE Mitral annular calcification is severe. There is no mitral valve regurgitation noted. There is no mitral valve stenosis. TRICUSPID VALVE There is moderate pulmonary hypertension. GREAT VESSELS The aortic root is normal in size. The IVC was not visualized. PERICARDIAL EFFUSION There is no pericardial effusion. <Conclusion> The left ventricle is normal size. There is normal left ventricular wall thickness. The left ventricular function is normal. The left ventricular ejection fraction is within the normal range. There is normal LV segmental wall motion. Transmitral Doppler flow pattern is Grade I-abnormal relaxation pattern. There is moderate pulmonary hypertension. The right ventricle is borderline dilated.RV Systolic function is mildly reduced.
[2017-10-24] MEDS ORDERED: Bisacodyl 5mg EC Tab PO ONE (17:10)
[2017-10-24] MEDS: Sildenafil 20 MG TAB PO SCH (17:49)
[2017-10-24] MEDS: Potassium Chloride 20 mEq ER Tab PO SCH (18:21)
[2017-10-24] MEDS: Iron Complex Polysacch 150mg Cap PO SCH (18:22)
--- NOTE | 2017-10-24 18:41 | PN ---
DATE: 10/24/2017 PULMONARY PROGRESS NOTE REFERRING PHYSICIAN: Nadira Clemente MD SUBJECTIVE: She is lying in the bed, head at 45 degrees. Has rhinitis, postnasal drip, cough, shortness of breath. No nausea, no vomiting. No diarrhea. No leg pain or leg swelling. OBJECTIVE: GENERAL: In no acute distress. VITAL SIGNS: Temperature is 98, heart rate 93, respiratory is 22, blood pressure 109/61, pulse ox is 95% on Venturi mask. HEENT: Moist mucous membrane, has facial tenderness. Nasal mucosa erythematous, erythematous throat. LUNGS: Has crackles. HEART: S1 and S2. ABDOMEN: Soft and nontender, no organomegaly. EXTREMITIES: There is no edema. NEUROLOGIC: Awake and follows simple command. MEDICATIONS: She is on Brovana inhaled twice a day, Rocephin 1 g daily, Colace 100 mg twice a day, Dulcolax 5 mg daily, albuterol/Atrovent nebulizer q. 6 hour, Lasix 20 mg q. 8 hour, Pepcid 40 mg daily, Pulmicort inhaled twice a day, Robitussin with codeine 5 mL q. 4 hour p.r.n., Solu-Medrol 40 mg q. 12 h. LABORATORY DATA: Shows hemoglobin 12.1, hematocrit 36.6, WBC 6.3, platelet is 396. Sodium 136, potassium 3.5, chloride 98, bicarbonate 29, BUN 7, creatinine 0.6, glucose 156, calcium 8.6, iron 23. TSH is 0.55, vitamin B12 of more than 1000. Folate 17. Microbiology, blood cultures negative. Urine culture seems contaminated culture. Had echocardiogram done, which shows right ventricle systolic pressure is 53. Left ventricle is normal. Normal left ventricular wall thickening. Left ventricle ejection fraction is within normal range, pulmonary hypertension. IMPRESSION AND PLAN: Chronic obstructive lung disease with chronic interstitial infiltrate of a cardiac diastolic dysfunction with pulmonary hypertension, history of encephalopathy, diabetes, hypertension, chronic constipation, may have a gastroesophageal reflux disease. We will continue IV and inhaled bronchodilator, add Protonix. Gastric prophylaxis. We will add pulmonary vasodilator. We will place her on bilevel positive airway pressure while sleeping. We will suggest sleep study upon discharge as outpatient, also pulmonary function test upon discharge as an outpatient. The patient is usually noncompliant, does not come to the office. Thank you and we will follow with you. Erika Newby MD
--- NOTE | 2017-10-24 22:30 | PN ---
DATE: SUBJECTIVE: The patient is an 87-year-old female. The patient is seen and examined on the bedside, having dinner, son was sitting on the bedside also. The patient do not want to each much. Son is educating her and feeding her. According to nursing staff, the patient did not have bowel movement even she is Colace. I gave a stat dose Dulcolax, and as per nursing staff, the patient's oxygenation dropped in 70s today, getting oxygen with nasal cannula and Venti-Mask. No nausea or vomiting. Coughing better. Shortness of breath is getting better. No fever. No chills. No headache. No dizziness. No hematuria or hematochezia. PHYSICAL EXAMINATION: VITAL SIGNS: Temperature 97.3, pulse 80, blood pressure 109/61, respiratory rate 22. HEENT: Head is normocephalic and atraumatic. Eyes, PERRLA. Extraocular muscles are intact. Conjunctivae are clear. Nose is patent. Mucous membranes are moist. NECK: Supple. No carotid bruits, JVD, or thyromegaly. CHEST: Bilaterally symmetrical. HEART: S1, S2 positive. LUNGS: Clear to auscultation. ABDOMEN: Soft. Bowel sounds are present. No organomegaly. EXTREMITIES: No edema. No cyanosis. NEUROLOGIC: The patient is awake and alert. Moving all 4 extremities. No focal deficits. MEDICATIONS: Ceftriaxone, Colace, DuoNeb, Lasix, Pepcid, Pulmicort, cough syrup with Codeine, Solu-Medrol. LABORATORY DATA: White blood cells 6.3, hemoglobin 12.1, hematocrit 36.6, platelet 396. Sodium 136, potassium 3.5, BUN 7, creatinine 0.6, iron 23, total iron binding capacity 258, saturation 9, cholesterol 127, B12 more than 1000. ASSESSMENT AND PLAN: Ms. Kaitlin Altman is an 87-year-old lady with multiple medical problems, hyperglycemia, iron deficiency, congestive heart failure, proteinuria, hematuria, urinary tract infection, getting antibiotics, constipation. The patient was on MiraLax, but still does not have bowel movement. I gave stat dose of Dulcolax. Oxygen is dropping, getting oxygen, DuoNeb. The patient has history of hypertension, chronic obstructive pulmonary disease, gastroesophageal reflux disease, dyspepsia, chronic constipation, dementia, cataract, glaucoma, history of renal insufficiency, history of Shingles, fall, fracture of the left humerus, history of appendectomy and cholecystectomy, urinary tract infection. We will continue albuterol, Lasix, Lovenox, Lyrica. GI/DVT prophylaxis. Repeat labs. We will follow up. Nadira Clemente MD MTDD
[2017-10-25] MEDS: Albuterol-Ipratrop 3 mg / 0.5 (3 ml) UD IH SCH ×4 (01:24→19:36)
[2017-10-25] MEDS: Pantoprazole 40 mg EC Tab PO SCH (06:10)
[2017-10-25 07:06] LABS: HEMATOCRIT 37.3 % (36.0-48.0); MEAN CELL VOLUME 89.7 fl (80.0-105.0); MEAN CORPUSCULAR HEMOGLOBIN 29.1 pg (25.0-35.0); MEAN CORPUSCULAR HGB CONC 32.4 g/dl (31.0-37.0); MEAN PLATELET VOLUME 9.7 fl (7.0-11.0); RED CELL DISTRIBUTION WIDTH 14.3 % (11.5-14.5); WHITE BLOOD COUNT 10.6 10^3/ul (4.5-11.0)
[2017-10-25] MEDS: Arformoterol 15 mcg/2 ml Inh Sol IH SCH ×2 (07:34→19:36)
[2017-10-25] MEDS: Budesonide 0.5 mg/2 ml Inhal Susp UD IH SCH ×2 (07:34→19:36)
[2017-10-25 08:15] LABS: ALKALINE PHOSPHATASE 98 U/L (38-126); ALT/SGPT 26 U/L (7-56); AST/SGOT 35 U/L (14-36); BILIRUBIN,TOTAL 0.4 mg/dL (0.2-1.3); BLOOD UREA NITROGEN 13 mg/dL (7-21); CALCIUM 8.7 mg/dL (8.4-10.5); CARBON DIOXIDE 32 mmol/L (21-33); CHLORIDE 96 mmol/L (98-107); GFR AFRICAN-AMERICAN > 60; GLUCOSE,RANDOM 130 mg/dL (70-110); POTASSIUM 3.7 mmol/L (3.6-5.0); SODIUM 137 mmol/L (132-148); TOTAL PROTEIN 6.5 g/dL (5.8-8.3)
[2017-10-25] MEDS: Sildenafil 20 MG TAB PO SCH ×3 (09:05→18:28)
[2017-10-25] MEDS: Iron Complex Polysacch 150mg Cap PO SCH (09:05)
[2017-10-25] MEDS: Potassium Chloride 20 mEq ER Tab PO SCH (09:05)
[2017-10-25] MEDS: MethylPREDNISolone 40 mg Vial IVP SCH ×2 (09:06→22:02)
[2017-10-25] MEDS: Enoxaparin 30 mg Syringe SC SCH (09:06)
--- NOTE | 2017-10-25 14:46 | PN ---
DATE: 10/25/2017 PULMONARY PROGRESS NOTE REFERRING PHYSICIAN: Nadira Clemente MD SUBJECTIVE: She is lying in the bed. Overnight events noted. Feels a little better. Decreased cough. Still shortness of breath. No nausea, vomiting or diarrhea. No leg pain or leg swelling. OBJECTIVE: GENERAL: In no acute distress. VITAL SIGNS: Temperature is , heart rate 69, respiratory rate 18, blood pressure 106/48, and pulse oximetry 94% on Venturi mask. HEENT: Moist mucous membrane. Crowed airway. NECK: Supple. No JVD. LUNGS: Crackles at the bases. HEART: S1 and S2. ABDOMEN: Soft and nontender. No organomegaly. EXTREMITIES: There is no edema. NEUROLOGIC: Awake, alert, and does follow simple command. MEDICATIONS: She is on Brovana 50 mcg inhale twice a day, Rocephin 1 mg daily, Colace 100 mg twice a day, DuoNeb q.6 hours, Ferrex 150 mg daily, potassium 20 mEq daily, Lasix 20 mg q.8 hours, Levemir 30 mg subcutaneously daily, Lyrica 25 mg twice a day, Protonix 40 mg daily, Pulmicort inhale twice a day, Revatio 20 mg 3 times a day, Robitussin with Codeine 5 mL q.4 hours p.r.n., Singulair 10 mg daily, Solu-Medrol 40 mg q.12 hours, and Tessalon Perles 3 times a day. LABORATORY DATA: Shows hemoglobin 12.1, hematocrit 37.3, WBC 10.6, and platelet is 460. Sodium 137, potassium 3.7, chloride 96, bicarbonate 32, BUN 13, creatinine 0.7, glucose 130, calcium 8.7, AST 35, ALT 26, alkaline phosphatase 98, and albumin 3.2. IMPRESSION AND PLAN: Chronic obstructive lung disease with chronic interstitial infiltrate, cardiac diastolic dysfunction, pulmonary hypertension, history of encephalopathy, diabetes, hypertension, chronic constipation, gastroesophageal reflux disease. From pulmonary point of view little bit improved, continue antibiotics, steroids, and continue pulmonary vasodilator. Encouraged BiPAP use at night time and stool softener. Thank you and we will follow with you. Mohammad Odin, MD
[2017-10-25] MEDS: guaiFENesin-Codeine 100-10mg/5ml Syrup (5 ml) UD PO PRN (18:27)
--- NOTE | 2017-10-25 21:56 | CP.PCM.PN ---
Subjective - Date & Time of Evaluation Date of Evaluation: 10/25/17 Time of Evaluation: 21:56 - Subjective Subjective: # 24 angiocath was inserted in right forearm. Objective - Vital Signs/Intake and Output Vital Signs (last 24 hours): Temp Pulse Resp BP Pulse Ox 98.0 F 97 H 20 101/56 L 94 L 10/25/17 18:00 10/25/17 18:00 10/25/17 18:00 10/25/17 18:00 10/25/17 06:00 - Medications Medications: Current Medications Albuterol/Ipratropium (Duoneb 3 Mg/0.5 Mg (3 Ml) Ud) 3 ml [facility] [id number] [facility] Last Admin: 10/25/17 19:36 Dose: 3 ml Arformoterol Tartrate (Brovana) 15 mcg [facility] [id number] [facility] Last Admin: 10/25/17 19:36 Dose: 15 mcg Benzonatate (Tessalon Perles) 100 mg PO TID [facility] Last Admin: 10/25/17 18:27 Dose: 100 mg Bisacodyl (Dulcolax) 10 mg RC DAILY [facility] Last Admin: 10/25/17 16:14 Dose: Not Given Budesonide (Pulmicort Respules) 0.5 mg [facility] [id number] [facility] Last Admin: 10/25/17 19:36 Dose: 0.5 mg Docusate Sodium (Colace) 100 mg PO BID [facility] Last Admin: 10/25/17 18:27 Dose: 100 mg Enoxaparin Sodium (Lovenox) 30 mg SC DAILY [facility] PRN Reason: Protocol Last Admin: 10/25/17 09:06 Dose: 30 mg Furosemide (Lasix) 20 mg IVP Q8 [facility] Last Admin: 10/25/17 15:30 Dose: Not Given Guaifenesin/Codeine Phosphate (Robitussin W/Codeine) 5 ml PO Q4H PRN PRN Reason: Cough and congestion Last Admin: 10/25/17 18:27 Dose: 5 ml Ceftriaxone Sodium 1 gm/ (Dextrose) 100 mls @ 100 mls/hr IVPB DAILY [facility] PRN Reason: Protocol Last Admin: 10/25/17 10:00 Dose: 100 mls/hr Methylprednisolone (Solu-Medrol) 40 mg IVP Q12 [facility] Last Admin: 10/25/17 09:06 Dose: 40 mg Montelukast Sodium (Singulair) 10 mg PO HS [facility] Last Admin: 10/24/17 21:51 Dose: 10 mg Pantoprazole Sodium (Protonix Ec Tab) 40 mg PO 0600 [facility] Last Admin: 10/25/17 06:10 Dose: 40 mg Polysaccharide Iron Complex (Ferrex-150) 150 mg PO DAILY [facility] Last Admin: 10/25/17 09:05 Dose: 150 mg Potassium Chloride (K-Dur 20 Meq Er Tab) 20 meq PO DAILY RAKESH Last Admin: 10/25/17 09:05 Dose: 20 meq Pregabalin (Lyrica) 25 mg PO BID [facility] Last Admin: 10/25/17 18:28 Dose: 25 mg Sildenafil Citrate (Revatio) 20 mg PO TID [facility] Last Admin: 10/25/17 18:28 Dose: 20 mg - Labs Labs: 10/25/17 06:45 10/25/17 06:45 PT 15.3 SECONDS (9.4-12.5) H 10/23/17 13:25 INR 1.39 (0.93-1.08) H 10/23/17 13:25 APTT 31.9 Seconds (25.1-36.5) 10/23/17 13:25
--- NOTE | 2017-10-26 | PN ---
DATE: SUBJECTIVE: The patient is an 87-year-old female. The patient is seen and examined at the bedside, lying comfortably, and overnight no event noted. Cough is better. Shortness of breath is better. No nausea, vomiting, or diarrhea. No swelling of the legs. No chest pain or palpitation. No hematuria or hematochezia. PHYSICAL EXAMINATION: VITALS: Temperature 98.6, pulse 70, respiratory rate 18, blood pressure 110/40, and pulse oximetry 94% on Venti mask. HEENT: Head is normocephalic and atraumatic. Eyes: PERRLA. Extraocular muscles intact. Conjunctivae clear. Nose patent. Mucous membranes moist. NECK: Supple. No carotid bruits, JVD, or thyromegaly. CHEST: Bilaterally symmetrical. HEART: S1 and S2 positive. ABDOMEN: Soft and nontender. No organomegaly. EXTREMITIES: No edema. No cyanosis. NEUROLOGIC: The patient is awake and alert. Follow simple commands. MEDICATIONS: Brovana, Rocephin, Colace, DuoNeb, Flomax, potassium, Lasix, Levemir, Lyrica, Protonix, Pulmicort, Revatio, Robitussin, Singulair, Solu-Medrol, and Tessalon Perles. LABORATORY DATA: Hemoglobin 12.1, hematocrit 37.3, white blood cell 10.6, and platelets 460. Sodium 137, potassium 3.7, BUN 13, and creatinine 0.7. AST 35 and ALT 26. ASSESSMENT AND PLAN: Ms. Kaitlin Altman is an 87-year-old lady with chronic obstructive lung disease with chronic interstitial infiltrates, cardiac diastolic dysfunction, pulmonary hypertension, history of encephalopathy, diabetes mellitus, hypertension, and gastroesophageal reflux disease. Continue antibiotics, steroids, Venti mask, vasodilator, encourage BiPAP especially at night, stool softener, out of bed, and physical therapy. We will follow up. Nadira Clemente MD
[2017-10-26] MEDS: Pantoprazole 40 mg EC Tab PO SCH (06:40)
[2017-10-26] MEDS: Albuterol-Ipratrop 3 mg / 0.5 (3 ml) UD IH SCH ×3 (08:10→20:00)
[2017-10-26] MEDS: Arformoterol 15 mcg/2 ml Inh Sol IH SCH ×2 (08:10→20:00)
[2017-10-26] MEDS: Budesonide 0.5 mg/2 ml Inhal Susp UD IH SCH ×2 (08:10→20:00)
--- NOTE | 2017-10-26 09:03 | RAD ---
HISTORY: chf COMPARISON: 10/23/2017 FINDINGS: LUNGS: Diffuse reticulonodular interstitial infiltrate, nonspecific. No significant change. No focal consolidation. PLEURA: No significant pleural effusion identified, no pneumothorax apparent. CARDIOVASCULAR: Normal. OSSEOUS STRUCTURES: No significant abnormalities. VISUALIZED UPPER ABDOMEN: Normal. OTHER FINDINGS: None. IMPRESSION: Stable diffuse reticulonodular interstitial infiltrate bilaterally. No focal consolidation appreciated.
[2017-10-26] MEDS: Potassium Chloride 20 mEq ER Tab PO SCH (10:28)
[2017-10-26] MEDS: Sildenafil 20 MG TAB PO SCH ×3 (10:28→18:33)
[2017-10-26] MEDS: Iron Complex Polysacch 150mg Cap PO SCH (10:28)
[2017-10-26] MEDS: Enoxaparin 30 mg Syringe SC SCH (10:28)
[2017-10-26] MEDS: MethylPREDNISolone 40 mg Vial IVP SCH ×2 (10:29→22:39)
[2017-10-26] MEDS: Benzocaine/Menthol (Cepacol) Lozenge MT PRN (11:15)
--- NOTE | 2017-10-26 11:27 | CON ---
DATE: 10/23/2017 PULMONARY CONSULTATION REFERRING PHYSICIAN: Dr. Clemente. REASON FOR CONSULTATION: Cough, shortness of breath, interstitial lung disease, heart failure. HISTORY OF PRESENT ILLNESS: This is an 87 years old female, well known to me from previous admissions, has a known history of chronic obstructive lung disease, oxygen dependent, hypertension, renal insufficiency, history of GERD, history of encephalopathy, comes in with cough, shortness of breath, severe hypoxemia, received IV and inhaled bronchodilators, helped actually a little better. No hemoptysis. No hematemesis. No hematuria. No diarrhea reported. PAST MEDICAL HISTORY: Chronic obstructive lung disease, hypertension, renal insufficiency, history of GERD, history of encephalopathy. Also, has a history of shingles in 2013, history of fall with left humerus fracture, history of UTI. FAMILY HISTORY: No significant cardiopulmonary disease recorded. SOCIAL HISTORY: Nonsmoker. Nondrinker. ALLERGY: TO ACYCLOVIR, END UP WITH ENCEPHALOPATHY. MEDICATIONS: The patient is on Brovana 15 mcg inhaled twice a day, Rocephin 1 g IV daily, Colace 100 mg twice a day, DuoNeb q. 6 hours, Lasix 20 mg q. 8 hours, Pepcid 40 mg at bedtime, Pulmicort inhaled twice a day, Robitussin with Codeine 5 mL q. 4 hours p.r.n., Solu-Medrol 40 mg q. 12 hours. REVIEW OF SYSTEMS: No headache. No rhinitis. Cough, shortness of breath, sputum production. No nausea. No vomiting. No diarrhea. No dysuria. There is some leg swelling. PHYSICAL EXAMINATION: GENERAL: Mild distress secondary to cough and shortness of breath. VITAL SIGNS: Temp is 98, heart rate is 98, respiratory rate is 20, blood pressure 133/73, pulse ox 100% on Venturi mask. HEENT: Moist mucous membrane. Crowded airway. NECK: Supple. No JVD. LUNGS: Have a few crackles, scattered rhonchi. HEART: S1 and S2. ABDOMEN: Soft, nontender. No organomegaly. EXTREMITIES: No significant edema. NEUROLOGICAL: Awake, alert. Follows simple command. LABORATORY DATA: Shows hemoglobin 13.1, hematocrit 39.5, WBC 10.3, platelet is 389. INR 1.39, PTT 32, VBG showed pH 7.31, pCO2 of 62, O2 of 27. Sodium 135, potassium 4.3, chloride 98, bicarbonate 29, BUN 7, creatinine 0.6, glucose 154, calcium 9.1, total bili 0.9, AST 26, ALT 28, alk phos is 118, LDH 649, troponin less than 0.03, proBNP 4230, albumin 3.6. Urinalysis shows wbc's 0 to 2. IMPRESSION AND PLAN: Chronic obstructive lung disease, has interstitial infiltrates, encephalopathy, seizure disorder, history of chronic constipation, history of renal failure, history of femur fracture, has a high proBNP. Need to evaluate left ventricular function. We will order echocardiogram. Lasix 20 mg intravenous q. 8 hours started. Follow up labs in the morning. Continue steroids. Continue antibiotics. Inhale bronchodilator. May start Robitussin with Codeine q. 4 hours. Has a severe cough. Continue supplement oxygen to titrate to T02 of 90%. Thank you and we will follow with you. Erika Newby MD
--- NOTE | 2017-10-26 11:28 | CP.PCM.PN ---
<Sandy Wilkinson - Last Filed: 10/26/17 22:52> Subjective - Date & Time of Evaluation Date of Evaluation: 10/26/17 Time of Evaluation: 10:30 - Subjective Subjective: 87 yr female w/ history of HTN, COPD (3L home O2), renal insufficiency , GERD, dyspepsia, chronic constipation, and Dementia. She was experiencing respiratory distress and increasing levels of anxiety at home. Today, pt appears to still struggle with episodic shortness of breath. She reports pain in her R rib area from trying to breath and cough. She denies any fever, chills , n/v, hemoptysis, urinary changes, or diarrhea. Objective - Vital Signs/Intake and Output Vital Signs (last 24 hours): Temp Pulse Resp BP Pulse Ox 97.5 F L 88 19 102/54 L 94 L 10/26/17 06:00 10/26/17 06:00 10/26/17 06:00 10/26/17 06:37 10/26/17 06:00 Intake and Output: 10/26/17 10/26/17 06:59 18:59 Intake Total 240 Balance 240 - Medications Medications: Current Medications Acetaminophen (Tylenol 325mg Tab) 650 mg PO Q6H PRN PRN Reason: Pain, Mild (1-3) Last Admin: 10/26/17 11:15 Dose: 650 mg Albuterol/Ipratropium (Duoneb 3 Mg/0.5 Mg (3 Ml) Ud) 3 ml IH [id number] [facility] Last Admin: 10/26/17 08:10 Dose: 3 ml Arformoterol Tartrate (Brovana) 15 mcg IH [id number] [facility] Last Admin: 10/26/17 08:10 Dose: 15 mcg Benzocaine/Menthol (Cepacol Sore Throat) 1 aracelis MT Q2H PRN PRN Reason: Sore Throat Last Admin: 10/26/17 11:15 Dose: 1 aracelis Benzonatate (Tessalon Perles) 100 mg PO TID [facility] Last Admin: 10/26/17 10:28 Dose: 100 mg Bisacodyl (Dulcolax) 10 mg RC DAILY [facility] Last Admin: 10/26/17 10:53 Dose: Not Given Budesonide (Pulmicort Respules) 0.5 mg IH [id number] [facility] Last Admin: 10/26/17 08:10 Dose: 0.5 mg Docusate Sodium (Colace) 100 mg PO BID [facility] Last Admin: 10/26/17 10:28 Dose: 100 mg Enoxaparin Sodium (Lovenox) 30 mg SC DAILY [facility] PRN Reason: Protocol Last Admin: 10/26/17 10:28 Dose: 30 mg Furosemide (Lasix) 20 mg IVP Q8 [facility] Last Admin: 10/26/17 06:37 Dose: 20 mg Guaifenesin/Codeine Phosphate (Robitussin W/Codeine) 5 ml PO Q4H PRN PRN Reason: Cough and congestion Last Admin: 10/25/17 18:27 Dose: 5 ml Ceftriaxone Sodium 1 gm/ (Dextrose) 100 mls @ 100 mls/hr IVPB DAILY [facility] PRN Reason: Protocol Last Admin: 10/26/17 10:29 Dose: 100 mls/hr Methylprednisolone (Solu-Medrol) 40 mg IVP Q12 [facility] Last Admin: 10/26/17 10:29 Dose: 40 mg Montelukast Sodium (Singulair) 10 mg PO HS [facility] Last Admin: 10/25/17 23:12 Dose: 10 mg Pantoprazole Sodium (Protonix Ec Tab) 40 mg PO 0600 [facility] Last Admin: 10/26/17 06:40 Dose: 40 mg Polyethylene Glycol (Miralax) 17 gm PO DAILY [facility] Polysaccharide Iron Complex (Ferrex-150) 150 mg PO DAILY [facility] Last Admin: 10/26/17 10:28 Dose: 150 mg Potassium Chloride (K-Dur 20 Meq Er Tab) 20 meq PO DAILY [facility] Last Admin: 10/26/17 10:28 Dose: 20 meq Pregabalin (Lyrica) 25 mg PO BID [facility] Last Admin: 10/26/17 10:28 Dose: 25 mg Sildenafil Citrate (Revatio) 20 mg PO TID [facility] Last Admin: 10/26/17 10:28 Dose: 20 mg - Labs Labs: 10/25/17 06:45 10/25/17 06:45 PT 15.3 SECONDS (9.4-12.5) H 10/23/17 13:25 INR 1.39 (0.93-1.08) H 10/23/17 13:25 APTT 31.9 Seconds (25.1-36.5) 10/23/17 13:25 - Constitutional Appears: Chronically Ill - Head Exam Head Exam: ATRAUMATIC, NORMAL INSPECTION, NORMOCEPHALIC - Eye Exam Eye Exam: EOMI, Normal appearance, PERRL Pupil Exam: NORMAL ACCOMODATION, PERRL - ENT Exam ENT Exam: Mucous Membranes Moist, Normal Exam - Neck Exam Neck Exam: Full ROM, Normal Inspection. absent: Lymphadenopathy - Respiratory Exam Respiratory Exam: Decreased Breath Sounds, Clear to Ausculation Bilateral - Cardiovascular Exam Cardiovascular Exam: REGULAR RHYTHM, +S1, +S2. absent: Murmur - GI/Abdominal Exam GI & Abdominal Exam: Distended, Soft - Back Exam Back Exam: NORMAL INSPECTION - Neurological Exam Neurological Exam: Alert, Awake - Psychiatric Exam Psychiatric exam: Normal Affect, Normal Mood - Skin Skin Exam: Dry, Intact, Normal Color, Warm Additional comments: bruising throughout upper/lower extremities Assessment and Plan (1) COPD with acute exacerbation Status: Acute (2) Steroid-induced hyperglycemia Status: Acute (3) Chronic drug-induced interstitial lung disorders Status: Chronic (4) Diastolic dysfunction Status: Chronic (5) Pulmonary hypertension Status: Chronic (6) Constipation Status: Chronic - Assessment and Plan (Free Text) Plan: Prescribed Miralax as pt refused ducolax suppository. Tylenol PRN for chest discomfort s/t to cough. Cepstat lozenges for cough relief. Agree with plan of care. Will continue to monitor. Consult: Pulmonary - Dr. Newby - continue antibiotics, steriods, vasodilator, bibpap use at night, stool softner Palliative Care Reviewed: ECG = (+) NSR, T wave abn, consider inferior/anterior ischemia, prolonged QT, abnormal CXR = (+) stable diffuse reticulonodular interstitial infiltrate bilaterally. no focal consolidation appreciated / chronic pulmonary fibrosis Abd Xray = (-) WNL ECHO = (+) mod pulmonary hypertension <Nadira Clemente - Last Filed: 10/27/17 16:51> Objective - Vital Signs/Intake and Output Vital Signs (last 24 hours): Temp Pulse Resp BP Pulse Ox 97.7 F 93 H 19 102/63 97 10/27/17 12:00 10/27/17 14:00 10/27/17 12:00 10/27/17 15:03 10/27/17 06:00 Intake and Output: 10/27/17 10/27/17 06:59 18:59 Intake Total 120 Output Total 700 Balance -580 - Medications Medications: Current Medications Acetaminophen (Tylenol 325mg Tab) 650 mg PO Q6H PRN PRN Reason: Pain, Mild (1-3) Last Admin: 10/26/17 11:15 Dose: 650 mg Albuterol/Ipratropium (Duoneb 3 Mg/0.5 Mg (3 Ml) Ud) 3 ml IH [id number] [facility] Last Admin: 10/27/17 13:20 Dose: 3 ml Arformoterol Tartrate (Brovana) 15 mcg IH [id number] [facility] Last Admin: 10/27/17 07:44 Dose: 15 mcg Benzocaine/Menthol (Cepacol Sore Throat) 1 aarcelis MT Q2H PRN PRN Reason: Sore Throat Last Admin: 10/26/17 11:15 Dose: 1 aracelis Benzonatate (Tessalon Perles) 100 mg PO TID [facility] Last Admin: 10/27/17 15:03 Dose: 100 mg Bisacodyl (Dulcolax) 10 mg RC DAILY [facility] Last Admin: 10/27/17 11:00 Dose: Not Given Budesonide (Pulmicort Respules) 0.5 mg IH [id number] [facility] Last Admin: 10/27/17 07:44 Dose: 0.5 mg Docusate Sodium (Colace) 100 mg PO BID [facility] Last Admin: 10/27/17 10:41 Dose: 100 mg Enoxaparin Sodium (Lovenox) 30 mg SC DAILY [facility] PRN Reason: Protocol Last Admin: 10/27/17 10:42 Dose: 30 mg Furosemide (Lasix) 20 mg IVP Q8 [facility] Last Admin: 10/27/17 15:03 Dose: 20 mg Guaifenesin/Codeine Phosphate (Robitussin W/Codeine) 5 ml PO Q4H PRN PRN Reason: Cough and congestion Last Admin: 10/26/17 15:15 Dose: 5 ml Ceftriaxone Sodium 1 gm/ (Dextrose) 100 mls @ 100 mls/hr IVPB DAILY [facility] PRN Reason: Protocol Last Admin: 10/27/17 10:41 Dose: 100 mls/hr Methylprednisolone (Solu-Medrol) 40 mg IVP Q12 [facility] Last Admin: 10/27/17 10:41 Dose: 40 mg Montelukast Sodium (Singulair) 10 mg PO HS [facility] Last Admin: 10/26/17 22:37 Dose: 10 mg Pantoprazole Sodium (Protonix Ec Tab) 40 mg PO 0600 [facility] Last Admin: 10/27/17 06:06 Dose: 40 mg Polyethylene Glycol (Miralax) 17 gm PO DAILY [facility] Last Admin: 10/27/17 10:42 Dose: 17 gm Polysaccharide Iron Complex (Ferrex-150) 150 mg PO DAILY [facility] Last Admin: 10/27/17 10:41 Dose: 150 mg Potassium Chloride (K-Dur 20 Meq Er Tab) 20 meq PO DAILY [facility] Last Admin: 10/27/17 10:41 Dose: 20 meq Pregabalin (Lyrica) 25 mg PO BID [facility] Last Admin: 10/27/17 10:41 Dose: 25 mg Sildenafil Citrate (Revatio) 20 mg PO TID [facility] Last Admin: 10/27/17 15:03 Dose: 20 mg - Labs Labs: 10/27/17 05:55 10/27/17 05:55 PT 15.3 SECONDS (9.4-12.5) H 10/23/17 13:25 INR 1.39 (0.93-1.08) H 10/23/17 13:25 APTT 31.9 Seconds (25.1-36.5) 10/23/17 13:25 Assessment and Plan - Assessment and Plan (Free Text) Plan: pt is seen and examined at bed side , looking comfortable , agreed all above . chart , meds and labs noted , no change of status
[2017-10-26] MEDS: guaiFENesin-Codeine 100-10mg/5ml Syrup (5 ml) UD PO PRN (15:15)
[2017-10-27] MEDS: Albuterol-Ipratrop 3 mg / 0.5 (3 ml) UD IH SCH ×3 (01:43→13:20)
[2017-10-27] MEDS: Pantoprazole 40 mg EC Tab PO SCH (06:06)
[2017-10-27 06:18] LABS: HEMATOCRIT 39.8 % (36.0-48.0); MEAN CELL VOLUME 92.6 fl (80.0-105.0); MEAN CORPUSCULAR HEMOGLOBIN 29.1 pg (25.0-35.0); MEAN CORPUSCULAR HGB CONC 31.4 g/dl (31.0-37.0); MEAN PLATELET VOLUME 9.9 fl (7.0-11.0); RED CELL DISTRIBUTION WIDTH 14.6 % (11.5-14.5); WHITE BLOOD COUNT 8.1 10^3/ul (4.5-11.0)
[2017-10-27 07:02] LABS: ALKALINE PHOSPHATASE 83 U/L (38-126); ALT/SGPT 40 U/L (7-56); AST/SGOT 40 U/L (14-36); BILIRUBIN,TOTAL 0.4 mg/dL (0.2-1.3); BLOOD UREA NITROGEN 21 mg/dL (7-21); CARBON DIOXIDE 32 mmol/L (21-33); CHLORIDE 98 mmol/L (98-107); GFR AFRICAN-AMERICAN > 60; GLUCOSE,RANDOM 130 mg/dL (70-110); POTASSIUM 5.3 mmol/L (3.6-5.0); SODIUM 138 mmol/L (132-148); TOTAL PROTEIN 6.4 g/dL (5.8-8.3)
[2017-10-27] MEDS: Budesonide 0.5 mg/2 ml Inhal Susp UD IH SCH (07:44)
[2017-10-27] MEDS: Arformoterol 15 mcg/2 ml Inh Sol IH SCH (07:44)
[2017-10-27] MEDS: MethylPREDNISolone 40 mg Vial IVP SCH ×2 (10:41→22:19)
[2017-10-27] MEDS: Potassium Chloride 20 mEq ER Tab PO SCH (10:41)
[2017-10-27] MEDS: Sildenafil 20 MG TAB PO SCH ×3 (10:41→18:26)
[2017-10-27] MEDS: Iron Complex Polysacch 150mg Cap PO SCH (10:41)
[2017-10-27] MEDS: Enoxaparin 30 mg Syringe SC SCH (10:42)
[2017-10-27] MEDS: POLYETHYLENE GLYCOL 3350 17 GM/Dose PACKET PO SCH (10:42)
--- NOTE | 2017-10-27 23:05 | PN ---
DATE: 10/27/2017 PULMONARY PROGRESS NOTE REFERRING PHYSICIAN: Nadira Clemente MD SUBJECTIVE: Patient is sitting at the side of the bed. Night was unremarkable, slept well. Still has some cough, but improved. Shortness of breath is improved. Has muscular type abdominal discomfort secondary to coughing. No nausea. No vomiting. No diarrhea, but constipated. No leg swelling. PHYSICAL EXAMINATION GENERAL: In no acute distress VITAL SIGNS: Temperature is 98, heart rate 101, respiratory rate is 20, blood pressure 107/55, pulse ox 97% on 2 L nasal cannula. HEENT: Moist mucous membrane. Crowed airway. NECK: Supple. No JVD. LUNGS: Bilateral crackles. HEART: S1 and S2. ABDOMEN: Soft and nontender. No organomegaly. EXTREMITIES: There is no edema. NEUROLOGIC: Awake, alert, and follows simple command. MEDICATIONS: Brovana 15 mcg inhaled twice a day, Rocephin 1 g IV daily, Cepacol lozenges q. 2 hour p.r.n., Colace 100 mg twice a day, Dulcolax 10 mg daily, DuoNeb q.6 hours, ferrous sulfate 150 mg daily, Lasix 20 mg q.8 hours, Levemir 30 mg daily, Lyrica 25 mg twice a day, MiraLax 17 g daily, Protonix 40 mg daily, Pulmicort inhale twice a day, Revatio 20 mg 3 times a day, Robitussin with Codeine 5 mL q.4 hours p.r.n., Singulair 10 mg daily, Solu-Medrol 20 mg q.12 hours, Tessalon Perles 3 times a day, Tylenol on p.r.n. basis. LABORATORY DATA: Shows hemoglobin 12.5, hematocrit 39.8, WBC 8.1, and platelet count is 398. Sodium 138, potassium 5.3, chloride 98, bicarbonate 32, BUN 21, creatinine 0.7, glucose is 130, and calcium is 9.0. AST 40, ALT 40, alkaline phosphatase 83, albumin is 3.1. Microbiology, blood cultures have been negative. Chest x-ray done yesterday shows stable diffuse reticulonodular interstitial infiltrate bilaterally. IMPRESSION AND PLAN: Chronic obstructive lung disease, chronic interstitial changes, cardiac diastolic dysfunction, pulmonary hypertension, history of encephalopathy, diabetes, hypertension, chronic constipation, gastroesophageal reflux disease. Spoke to nursing staff at bedside. May give suppository today. Continue pulmonary vasodilator, intravenous and inhaled bronchodilator. Continue diuretics, out of bed to chair, aspiration precaution. Appreciated Speech Therapy's help. Follow up electrolytes in the morning. Thank you and we will follow with you. Erika Newby MD
--- NOTE | 2017-10-28 00:43 | PN ---
DATE: SUBJECTIVE: The patient is an 87-year-old female. The patient is seen and examined at the bedside, looking comfortable, sitting on the chair. According to her, she do not have too much cough now. No shortness of breath. No nausea or vomiting. No headache. No dizziness. No hematuria or hematochezia. No swelling of the legs. PHYSICAL EXAMINATION VITAL SIGNS: Temperature of 98.1, pulse of 109, blood pressure of 107/58, and respiratory rate of 19. HEENT: Head is normocephalic and atraumatic. Eyes: PERRLA. Extraocular muscles are intact. Conjunctivae are clear. Nose is patent. Mucous membranes are moist. NECK: Supple. No carotid bruits, JVD, or thyromegaly. CHEST: Bilaterally symmetrical. HEART: S1 and S2 positive. LUNGS: Clear to auscultation. ABDOMEN: Soft. Bowel sounds are present. No organomegaly. EXTREMITIES: No edema. No cyanosis. NEUROLOGIC: The patient is awake and alert. Moving all 4 extremities. No focal deficits. MEDICATIONS: Brovana, ceftriaxone, Cepacol lozenges, Colace, Dulcolax, albuterol, Ferrex, potassium, Lasix, Lovenox, Lyrica, Miralax, Protonix, Pulmicort, Revatio, Singulair, Solu-Medrol tapering doses, benzoate, and Tylenol. LABORATORY DATA: White blood cells is 8.1, hemoglobin is 12.5, hematocrit is 39.8, and platelets are 398. Sodium is 138, potassium is 5.3, BUN is 21, creatinine is 0.7, and glucose of 130. AST is 40 and ALT is 40. ASSESSMENT AND PLAN: Ms. Kaitlin Altman is an 87-year-old lady with hyperkalemia, used to be hypokalemia, hyperglycemia, iron deficiency, abnormal liver function test, history of constipation, history of anemia, improved; chronic obstructive pulmonary disease with acute exacerbation, steroid induced hyperglycemia, chronic lung interstitial disease, diastolic dysfunction, and chronic hypertension. The patient is getting Miralax and Dulcolax suppositories. Hyperkalemia, we will discontinue potassium. Cough. For cough, the patient is getting lozenges, getting relief. Appreciated Dr. Newby's input. The patient is getting tapering dose of steroids, BiPAP at night. Stool softener, palliative care. Gastrointestinal and deep venous thrombosis prophylaxis. We will follow up. Nadira Clemente MD
[2017-10-28] MEDS: Albuterol-Ipratrop 3 mg / 0.5 (3 ml) UD IH SCH ×4 (02:00→21:56)
[2017-10-28 06:17] LABS: BLOOD UREA NITROGEN 22 mg/dL (7-21); CALCIUM 8.8 mg/dL (8.4-10.5); CARBON DIOXIDE 34 mmol/L (21-33); CHLORIDE 96 mmol/L (98-107); GFR AFRICAN-AMERICAN > 60; GLUCOSE,RANDOM 116 mg/dL (70-110); POTASSIUM 4.6 mmol/L (3.6-5.0); SODIUM 135 mmol/L (132-148)
[2017-10-28] MEDS: Pantoprazole 40 mg EC Tab PO SCH (06:20)
[2017-10-28] MEDS: Arformoterol 15 mcg/2 ml Inh Sol IH SCH ×2 (08:06→21:56)
[2017-10-28] MEDS: Budesonide 0.5 mg/2 ml Inhal Susp UD IH SCH ×2 (08:07→21:56)
[2017-10-28] MEDS: MethylPREDNISolone 40 mg Vial IVP SCH ×2 (09:32→21:16)
[2017-10-28] MEDS: Enoxaparin 30 mg Syringe SC SCH (09:32)
[2017-10-28] MEDS: Iron Complex Polysacch 150mg Cap PO SCH (09:33)
[2017-10-28] MEDS: POLYETHYLENE GLYCOL 3350 17 GM/Dose PACKET PO SCH (09:33)
[2017-10-28] MEDS: Sildenafil 20 MG TAB PO SCH ×3 (09:33→19:11)
--- NOTE | 2017-10-28 10:23 | CP.PCM.PN ---
<Sandy Wilkinson - Last Filed: 10/28/17 11:03> Subjective - Date & Time of Evaluation Date of Evaluation: 10/28/17 Time of Evaluation: 10:10 - Subjective Subjective: 87 yr female w/ history of HTN, COPD (3L home O2), renal insufficiency , GERD, dyspepsia, chronic constipation, and Dementia.Today, appears to be breathing easier, no distress or coughing noted. She reports constipation and being given a rectal suppository. She denies any fever, chills, n/v, hemoptysis , urinary changes, or diarrhea. Objective - Vital Signs/Intake and Output Vital Signs (last 24 hours): Temp Pulse Resp BP Pulse Ox 98.3 F 93 H 20 101/56 L 95 10/28/17 06:00 10/28/17 06:00 10/28/17 06:00 10/28/17 06:34 10/28/17 00:01 Intake and Output: 10/28/17 10/28/17 06:59 18:59 Intake Total 480 Output Total 400 Balance 80 - Medications Medications: Current Medications Acetaminophen (Tylenol 325mg Tab) 650 mg PO Q6H PRN PRN Reason: Pain, Mild (1-3) Last Admin: 10/26/17 11:15 Dose: 650 mg Albuterol/Ipratropium (Duoneb 3 Mg/0.5 Mg (3 Ml) Ud) 3 ml IH [id number] [facility] Last Admin: 10/28/17 08:07 Dose: 3 ml Arformoterol Tartrate (Brovana) 15 mcg IH [id number] [facility] Last Admin: 10/28/17 08:06 Dose: 15 mcg Benzocaine/Menthol (Cepacol Sore Throat) 1 aracelis MT Q2H PRN PRN Reason: Sore Throat Last Admin: 10/26/17 11:15 Dose: 1 aracelis Benzonatate (Tessalon Perles) 100 mg PO TID [facility] Last Admin: 10/28/17 09:33 Dose: 100 mg Bisacodyl (Dulcolax) 10 mg RC DAILY [facility] Last Admin: 10/28/17 09:33 Dose: 10 mg Budesonide (Pulmicort Respules) 0.5 mg IH [id number] [facility] Last Admin: 10/28/17 08:07 Dose: 0.5 mg Docusate Sodium (Colace) 100 mg PO BID [facility] Last Admin: 10/28/17 09:33 Dose: 100 mg Enoxaparin Sodium (Lovenox) 30 mg SC DAILY [facility] PRN Reason: Protocol Last Admin: 10/28/17 09:32 Dose: 30 mg Furosemide (Lasix) 20 mg IVP Q8 [facility] Last Admin: 10/28/17 06:34 Dose: Not Given Guaifenesin/Codeine Phosphate (Robitussin W/Codeine) 5 ml PO Q4H PRN PRN Reason: Cough and congestion Last Admin: 10/26/17 15:15 Dose: 5 ml Ceftriaxone Sodium 1 gm/ (Dextrose) 100 mls @ 100 mls/hr IVPB DAILY [facility] PRN Reason: Protocol Last Admin: 10/27/17 10:41 Dose: 100 mls/hr Methylprednisolone (Solu-Medrol) 30 mg IVP Q12 [facility] Last Admin: 10/28/17 09:32 Dose: 30 mg Montelukast Sodium (Singulair) 10 mg PO HS [facility] Last Admin: 10/27/17 22:19 Dose: 10 mg Pantoprazole Sodium (Protonix Ec Tab) 40 mg PO 0600 [facility] Last Admin: 10/28/17 06:20 Dose: 40 mg Polyethylene Glycol (Miralax) 17 gm PO DAILY [facility] Last Admin: 10/28/17 09:33 Dose: 17 gm Polysaccharide Iron Complex (Ferrex-150) 150 mg PO DAILY [facility] Last Admin: 10/28/17 09:33 Dose: 150 mg Pregabalin (Lyrica) 25 mg PO BID [facility] Last Admin: 10/28/17 09:32 Dose: 25 mg Sildenafil Citrate (Revatio) 20 mg PO TID [facility] Last Admin: 10/28/17 09:33 Dose: 20 mg - Labs Labs: 10/27/17 05:55 10/28/17 05:45 PT 15.3 SECONDS (9.4-12.5) H 10/23/17 13:25 INR 1.39 (0.93-1.08) H 10/23/17 13:25 APTT 31.9 Seconds (25.1-36.5) 10/23/17 13:25 - Constitutional Appears: Chronically Ill - Head Exam Head Exam: ATRAUMATIC, NORMAL INSPECTION, NORMOCEPHALIC - Eye Exam Eye Exam: EOMI, Normal appearance, PERRL - ENT Exam ENT Exam: Mucous Membranes Moist, Normal Exam - Neck Exam Neck Exam: Full ROM, Normal Inspection. absent: Lymphadenopathy - Respiratory Exam Respiratory Exam: Decreased Breath Sounds, Clear to Ausculation Bilateral, NORMAL BREATHING PATTERN - Cardiovascular Exam Cardiovascular Exam: +S1, +S2 - GI/Abdominal Exam GI & Abdominal Exam: Distended, Soft, Normal Bowel Sounds - Back Exam Back Exam: NORMAL INSPECTION - Neurological Exam Neurological Exam: Alert, Awake - Psychiatric Exam Psychiatric exam: Normal Affect, Normal Mood - Skin Skin Exam: Dry, Intact, Normal Color, Warm Assessment and Plan (1) COPD with acute exacerbation Status: Acute (2) Steroid-induced hyperglycemia Status: Acute (3) 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 Consult: Pulmonary - Dr. Newby - continue diuretics, antibiotics, steriods, IV vasodilator, bibpap use at night, aspiration precautions Palliative Care Reviewed: ECG = (+) NSR, T wave abn, consider inferior/anterior ischemia, prolonged QT, abnormal CXR = (+) stable diffuse reticulonodular interstitial infiltrate bilaterally. no focal consolidation appreciated / chronic pulmonary fibrosis Abd Xray = (-) WNL ECHO = (+) mod pulmonary hypertension <Nadira Clemente - Last Filed: 10/28/17 13:54> Objective - Vital Signs/Intake and Output Vital Signs (last 24 hours): Temp Pulse Resp BP Pulse Ox 98.2 F 100 H 20 108/62 95 10/28/17 11:28 10/28/17 11:28 10/28/17 11:28 10/28/17 11:28 10/28/17 00:01 Intake and Output: 10/28/17 10/28/17 06:59 18:59 Intake Total 480 Output Total 400 Balance 80 - Medications Medications: Current Medications Acetaminophen (Tylenol 325mg Tab) 650 mg PO Q6H PRN PRN Reason: Pain, Mild (1-3) Last Admin: 10/28/17 10:45 Dose: 650 mg Albuterol/Ipratropium (Duoneb 3 Mg/0.5 Mg (3 Ml) Ud) 3 ml IH [id number] [facility] Last Admin: 10/28/17 08:07 Dose: 3 ml Arformoterol Tartrate (Brovana) 15 mcg IH [id number] [facility] Last Admin: 10/28/17 08:06 Dose: 15 mcg Benzocaine/Menthol (Cepacol Sore Throat) 1 aracelis MT Q2H PRN PRN Reason: Sore Throat Last Admin: 10/26/17 11:15 Dose: 1 aracelis Benzonatate (Tessalon Perles) 100 mg PO TID [facility] Last Admin: 10/28/17 09:33 Dose: 100 mg Bisacodyl (Dulcolax) 10 mg RC DAILY [facility] Last Admin: 10/28/17 09:33 Dose: 10 mg Budesonide (Pulmicort Respules) 0.5 mg IH [id number] [facility] Last Admin: 10/28/17 08:07 Dose: 0.5 mg Docusate Sodium (Colace) 100 mg PO BID [facility] Last Admin: 10/28/17 09:33 Dose: 100 mg Enoxaparin Sodium (Lovenox) 30 mg SC DAILY [facility] PRN Reason: Protocol Last Admin: 10/28/17 09:32 Dose: 30 mg Furosemide (Lasix) 20 mg IVP Q8 [facility] Last Admin: 10/28/17 06:34 Dose: Not Given Guaifenesin/Codeine Phosphate (Robitussin W/Codeine) 5 ml PO Q4H PRN PRN Reason: Cough and congestion Last Admin: 10/26/17 15:15 Dose: 5 ml Ceftriaxone Sodium 1 gm/ (Dextrose) 100 mls @ 100 mls/hr IVPB DAILY [facility] PRN Reason: Protocol Last Admin: 10/28/17 10:44 Dose: 100 mls/hr Methylprednisolone (Solu-Medrol) 30 mg IVP Q12 [facility] Last Admin: 10/28/17 09:32 Dose: 30 mg Montelukast Sodium (Singulair) 10 mg PO HS [facility] Last Admin: 10/27/17 22:19 Dose: 10 mg Pantoprazole Sodium (Protonix Ec Tab) 40 mg PO 0600 [facility] Last Admin: 10/28/17 06:20 Dose: 40 mg Polyethylene Glycol (Miralax) 17 gm PO DAILY [facility] Last Admin: 10/28/17 09:33 Dose: 17 gm Polysaccharide Iron Complex (Ferrex-150) 150 mg PO DAILY [facility] Last Admin: 10/28/17 09:33 Dose: 150 mg Pregabalin (Lyrica) 25 mg PO BID [facility] Last Admin: 10/28/17 09:32 Dose: 25 mg Sildenafil Citrate (Revatio) 20 mg PO TID [facility] Last Admin: 10/28/17 09:33 Dose: 20 mg - Labs Labs: 10/27/17 05:55 10/28/17 05:45 PT 15.3 SECONDS (9.4-12.5) H 10/23/17 13:25 INR 1.39 (0.93-1.08) H 10/23/17 13:25 APTT 31.9 Seconds (25.1-36.5) 10/23/17 13:25 Assessment and Plan - Assessment and Plan (Free Text) Plan: pt is seen and examined at bed . looking comfortable , agreed all above , chart labs and meds noted , no n.v.d or siegel . no change of status ,
--- NOTE | 2017-10-28 18:41 | PN ---
PULMONARY PROGRESS NOTE DATE: 10/28/2017 REFERRING PHYSICIAN: Nadira Clemente MD SUBJECTIVE: The patient is lying in the bed, head at 45 degrees, feels better, still having cough, shortness of breath. No nausea. No vomiting. No diarrhea. No leg pain or leg swelling. PHYSICAL EXAMINATION GENERAL: In no acute distress. VITAL SIGNS: Temperature 98, heart rate is 70, respiratory rate is 20, blood pressure 108/62, pulse ox 95% on 2 L nasal cannula. HEENT: Moist mucous membranes. No ulcer or thrush noted. NECK: Supple. No JVD. LUNGS: Has crackle. HEART: S1, S2. ABDOMEN: Soft, nontender. No organomegaly. EXTREMITIES: No edema. NEUROLOGIC: Awake and alert. Follow simple command. MEDICATIONS: She is on Brovana inhale twice a day, Rocephin 1 g daily, Cepacol lozenges q. 2 hour p.r.n., Colace 100 mg twice a day, Dulcolax p.r.n. basis, DuoNeb q. 6 hours, Ferrex 150 mg daily, Lasix 20 mg q. 8 hours, Lovenox 30 mg subcutaneous daily, Lyrica 25 mg twice a day, MiraLax 17 g daily, Protonix 40 mg daily, Pulmicort inhale twice a day, Revatio 20 mg 3 times a day, Robitussin with Codeine q. 6 hours p.r.n., Singulair 10 mg daily, Solu-Medrol 30 mg q. 12 hours, Tessalon Perles 100 mg 3 times a day, Tylenol on p.r.n. basis.. LABORATORY DATA: Reviewed. Sodium 135, potassium 4.6, chloride 96, bicarbonate 34, BUN 22, creatinine 0.6, glucose is 116, and calcium is 8.8. IMPRESSION AND PLAN: Chronic obstructive lung disease, interstitial infiltrate, cardiac diastolic dysfunction with pulmonary hypertension, encephalopathy, diabetes, hypertension, chronic constipation, gastroesophageal reflux disease. Spoke to the patient's son at bedside. All the questions answered. Discussed options of biopsy. conservative treatment. We will continue steroid-inhaled bronchodilator, pulmonary vasodilator, fall precautions. Thank you and we will follow with you. Erika Newby MD [facility] # [id number]
[2017-10-28] MEDS: guaiFENesin-Codeine 100-10mg/5ml Syrup (5 ml) UD PO PRN (19:11)
[2017-10-28] MEDS: Benzocaine/Menthol (Cepacol) Lozenge MT PRN (19:11)
[2017-10-29] MEDS: Albuterol-Ipratrop 3 mg / 0.5 (3 ml) UD IH SCH ×4 (02:45→21:11)
[2017-10-29] MEDS: Pantoprazole 40 mg EC Tab PO SCH (06:36)
[2017-10-29] MEDS: Arformoterol 15 mcg/2 ml Inh Sol IH SCH ×2 (07:57→21:11)
[2017-10-29] MEDS: Budesonide 0.5 mg/2 ml Inhal Susp UD IH SCH ×2 (07:58→21:11)
[2017-10-29] MEDS: Iron Complex Polysacch 150mg Cap PO SCH (09:38)
[2017-10-29] MEDS: MethylPREDNISolone 40 mg Vial IVP SCH ×2 (09:38→21:03)
[2017-10-29] MEDS: Sildenafil 20 MG TAB PO SCH ×3 (09:38→18:37)
[2017-10-29] MEDS: POLYETHYLENE GLYCOL 3350 17 GM/Dose PACKET PO SCH (09:38)
[2017-10-29] MEDS: Enoxaparin 30 mg Syringe SC SCH (09:40)
[2017-10-29] MEDS: Benzocaine/Menthol (Cepacol) Lozenge MT PRN (11:15)
--- NOTE | 2017-10-29 19:56 | PN ---
PULMONARY PROGRESS NOTE DATE: 10/26/2017 REFERRING PHYSICIAN: Nadira Clemente MD SUBJECTIVE: The patient is sitting up in the bed, feels little better, decreased cough, decreased shortness of breath, on nasal cannula oxygen, and having dinner. Swallow evaluation is not done yet. Cough is better. No nausea. No vomiting. No diarrhea. Has a muscular type pain. No leg pain or leg swelling. PHYSICAL EXAMINATION: GENERAL: In no acute distress. VITAL SIGNS: Temperature is 98, heart rate is 107, respiratory rate is 20, blood pressure is 91/45, and pulse oximetry is 94% on nasal cannula. HEENT: Small oral cavity. Crowded airway. NECK: Supple. No JVD. LUNGS: Have few crackles, scattered rhonchi. HEART: S1 and S2. ABDOMEN: Soft and nontender. No organomegaly. EXTREMITIES: No edema. NEUROLOGICAL: Awake and alert. Follows simple commands. MEDICATIONS: She is on Brovana inhale twice a day, Rocephin 1 g IV daily, Cepacol lozenges q.12 hours p.r.n., Colace 100 mg twice a day, Dulcolax 10 mg p.r.n. which refused from the last 2 days, DuoNeb q.6 hours around the clock, Ferrex 150 mg daily, potassium 20 mEq daily, Lasix 20 mg q.8 hours, Lovenox 30 mg subcutaneously daily, Lyrica 25 mg twice a day, MiraLax 17 g daily, Protonix 40 mg daily, Pulmicort inhaled twice a day, Revatio 20 mg three times a day, Robitussin with codeine p.r.n., Singulair 10 mg daily, Solu-Medrol 40 mg q.12 hours, Tessalon Perles 100 mg three times a day, and Tylenol p.r.n. basis. LABORATORY DATA: Reviewed. No new lab is available since yesterday. Microbiology: Blood cultures have been negative. Urine is contaminated. Chest x-ray shows stable diffuse reticulonodular interstitial infiltrate bilaterally. IMPRESSION AND PLAN: Chronic obstructive lung disease, also interstitial chronic infiltrate, cardiac diastolic dysfunction, pulmonary hypertension, encephalopathy, history of diabetes, hypertension, chronic constipation, and gastroesophageal reflux disease. Pulmonary point of view, she is doing okay. Continue IV and inhaled bronchodilators. Continue antibiotics. Continue cough suppressant. The patient is willing to take Dulcolax MiraLax has been added. Follow up labs in the morning. We should do swallow evaluation to assure there is oropharyngeal dysphagia. Thank you and we will follow with you. Erika Newby MD
[2017-10-29] MEDS: guaiFENesin-Codeine 100-10mg/5ml Syrup (5 ml) UD PO PRN (21:03)
[2017-10-29] MEDS ORDERED: Magnesium Hydroxide Susp 30 ml UD PO ONE (22:28)
--- NOTE | 2017-10-29 22:50 | PN ---
DATE: 10/29/2017 PULMONARY PROGRESS NOTE REFERRING PHYSICIAN: Nadira Clemente MD SUBJECTIVE: She is lying in the bed, feels better, decreased cough, decreased shortness of breath, no nausea, no vomiting or diarrhea. No leg pain or leg swelling. OBJECTIVE: GENERAL: In no acute distress. VITAL SIGNS: Temp is 98, heart rate 91, respiratory rate is 20, blood pressure 106/62, and pulse oximetry 95% on 4 L of nasal cannula. HEENT: Moist mucus membrane. Small oral cavity. Crowded airway. NECK: Supple. No JVD. LUNGS: Has crackles. HEART: S1 and S2. ABDOMEN: Soft and nontender. No organomegaly. EXTREMITIES: No edema. NEUROLOGIC: Awake and alert. Follows simple commands. MEDICATIONS: She is on Brovana inhaled twice a day, Rocephin 1 g daily, Cepacol lozenges q. 2 hours p.r.n., Colace 100 mg twice a day, Dulcolax 10 mg rectally daily, DuoNeb q. 6 hours, ferrous sulfate 150 mg daily, Lasix 20 mg q. 8 hours, Lovenox 30 mg subcutaneous daily, Lyrica 25 mg twice a day, MiraLax 17 g daily, Protonix 40 mg daily, Pulmicort inhale twice a day, Revatio 20 mg 3 times a day, Robitussin with Codeine 5 mL q. 4 hours p.r.n., Singulair 10 mg daily, Solu-Medrol 30 mg daily, Tessalon Perles q. 8 hours, Tylenol on p.r.n. basis. LABORATORY DATA: Reviewed and noted blood sugar of 109. IMPRESSION AND PLAN: Chronic obstructive lung disease, interstitial infiltrate, cardiac diastolic dysfunction, pulmonary hypertension, encephalopathy, diabetes, hypertension, and chronic constipation. Current pulmonary point of view, she is doing okay. We will decrease Solu-Medrol to 20 q. 12 hours. Continue antibiotics. Head elevated at 45 degree. Aspiration precaution. Out of bed to chair and physical therapy. Thank you and we will follow with you. Erika Newby MD [facility] # [id number]
--- NOTE | 2017-10-29 23:02 | CP.PCM.PN ---
Subjective - Date & Time of Evaluation Date of Evaluation: 10/29/17 Time of Evaluation: 22:58 - Subjective Subjective: Patient was seen for chest pain. Talked to patient with help of nurse Pura. Complains of pressure in chest which is going away. Denies nausea, sob, sweating. This 87 year old woman was admitted with increasing cough ,sob. Has PMH of COPD,HTN,dementia, renal insufficiency, chronic constipation,glaucoma , shingles, appendectomy, cholecystectomy,urinary incontinence, fracture of left hurmerus. Objective - Vital Signs/Intake and Output Vital Signs (last 24 hours): Temp Pulse Resp BP Pulse Ox 98.5 F 94 H 21 105/59 L 90 L 10/29/17 22:43 10/29/17 22:43 10/29/17 22:43 10/29/17 22:43 10/29/17 22:43 Intake and Output: 10/29/17 10/30/17 18:59 06:59 Intake Total 420 Balance 420 - Medications Medications: Current Medications Acetaminophen (Tylenol 325mg Tab) 650 mg PO Q6H PRN PRN Reason: Pain, Mild (1-3) Last Admin: 10/29/17 06:36 Dose: 650 mg Albuterol/Ipratropium (Duoneb 3 Mg/0.5 Mg (3 Ml) Ud) 3 ml IH [id number] [facility] Last Admin: 10/29/17 21:11 Dose: 3 ml Arformoterol Tartrate (Brovana) 15 mcg IH [id number] [facility] Last Admin: 10/29/17 21:11 Dose: 15 mcg Benzocaine/Menthol (Cepacol Sore Throat) 1 aracelis MT Q2H PRN PRN Reason: Sore Throat Last Admin: 10/29/17 11:15 Dose: 1 aracelis Benzonatate (Tessalon Perles) 100 mg PO TID [facility] Last Admin: 10/29/17 18:37 Dose: 100 mg Bisacodyl (Dulcolax) 10 mg RC DAILY [facility] Last Admin: 10/29/17 09:40 Dose: Not Given Budesonide (Pulmicort Respules) 0.5 mg IH [id number] [facility] Last Admin: 10/29/17 21:11 Dose: 0.5 mg Docusate Sodium (Colace) 100 mg PO BID [facility] Last Admin: 10/29/17 18:37 Dose: 100 mg Enoxaparin Sodium (Lovenox) 30 mg SC DAILY [facility] PRN Reason: Protocol Last Admin: 10/29/17 09:40 Dose: 30 mg Furosemide (Lasix) 20 mg IVP Q8 [facility] Last Admin: 10/29/17 21:06 Dose: Not Given Guaifenesin/Codeine Phosphate (Robitussin W/Codeine) 5 ml PO Q4H PRN PRN Reason: Cough and congestion Last Admin: 10/29/17 21:03 Dose: 5 ml Ceftriaxone Sodium 1 gm/ (Dextrose) 100 mls @ 100 mls/hr IVPB DAILY [facility] PRN Reason: Protocol Last Admin: 10/29/17 09:39 Dose: 100 mls/hr Methylprednisolone (Solu-Medrol) 20 mg IVP Q12 [facility] Last Admin: 10/29/17 21:03 Dose: 20 mg Montelukast Sodium (Singulair) 10 mg PO HS [facility] Last Admin: 10/29/17 21:10 Dose: Not Given Pantoprazole Sodium (Protonix Ec Tab) 40 mg PO 0600 [facility] Last Admin: 10/29/17 06:36 Dose: 40 mg Polyethylene Glycol (Miralax) 17 gm PO DAILY [facility] Last Admin: 10/29/17 09:38 Dose: 17 gm Polysaccharide Iron Complex (Ferrex-150) 150 mg PO DAILY [facility] Last Admin: 10/29/17 09:38 Dose: 150 mg Pregabalin (Lyrica) 25 mg PO BID [facility] Last Admin: 10/29/17 18:37 Dose: 25 mg Sildenafil Citrate (Revatio) 20 mg PO TID [facility] Last Admin: 10/29/17 18:37 Dose: 20 mg - Labs Labs: 10/27/17 05:55 10/28/17 05:45 PT 15.3 SECONDS (9.4-12.5) H 10/23/17 13:25 INR 1.39 (0.93-1.08) H 10/23/17 13:25 APTT 31.9 Seconds (25.1-36.5) 10/23/17 13:25 Laboratory Last Values WBC 8.1 10^3/ul (4.5-11.0) D 10/27/17 05:55 RBC 4.30 10^6/uL (3.5-6.1) 10/27/17 05:55 Hgb 12.5 g/dL (12.0-16.0) 10/27/17 05:55 Hct 39.8 % (36.0-48.0) 10/27/17 05:55 MCV 92.6 fl (80.0-105.0) 10/27/17 05:55 MCH 29.1 pg (25.0-35.0) 10/27/17 05:55 MCHC 31.4 g/dl (31.0-37.0) 10/27/17 05:55 RDW 14.6 % (11.5-14.5) H 10/27/17 05:55 Plt Count 398 10^3/uL (120.0-450.0) 10/27/17 05:55 MPV 9.9 fl (7.0-11.0) 10/27/17 05:55 Gran % 77.4 % (50.0-68.0) H 10/23/17 13:25 Lymph % (Auto) 9.1 % (22.0-35.0) L 10/23/17 13:25 [place] % (Auto) 9.1 % (1.0-6.0) H 10/23/17 13:25 Eos % (Auto) 4.1 % (1.5-5.0) 10/23/17 13:25 Baso % (Auto) 0.3 % (0.0-3.0) 10/23/17 13:25 Gran # 7.97 (1.4-6.5) H 10/23/17 13:25 Lymph # 0.9 (1.2-3.4) L 10/23/17 13:25 [place] # 0.9 (0.1-0.6) H 10/23/17 13:25 Eos # 0.4 (0.0-0.7) 10/23/17 13:25 Baso # 0.03 K/mm3 (0.0-2.0) 10/23/17 13:25 PT 15.3 SECONDS (9.4-12.5) H 10/23/17 13:25 INR 1.39 (0.93-1.08) H 10/23/17 13:25 APTT 31.9 Seconds (25.1-36.5) 10/23/17 13:25 pO2 27 mm/Hg (30-55) L 10/23/17 13:25 VBG pH 7.31 (7.32-7.43) L 10/23/17 13:25 VBG pCO2 62.0 (40-60) H 10/23/17 13:25 VBG HCO3 31.2 mmol/l (21-28) H 10/23/17 13:25 VBG Total CO2 33.1 mmol.L (22-28) H 10/23/17 13:25 VBG O2 Sat (Calc) 53.0 % (40-65) 10/23/17 13:25 VBG Base Excess 3.2 mmol/L (0.0-2.0) H 10/23/17 13:25 VBG Potassium 3.7 mmol/L (3.6-5.2) 10/23/17 13:25 Sodium 135.0 mmol/L (132-148) 10/23/17 13:25 Chloride 99.0 mmol/L (98-107) 10/23/17 13:25 Glucose 152 mg/dl (65-105) H 10/23/17 13:25 Lactate 1.6 mmol/L (0.7-2.1) 10/23/17 13:25 FiO2 21.0 % 10/23/17 13:25 Sodium 135 mmol/L (132-148) 10/28/17 05:45 Potassium 4.6 mmol/L (3.6-5.0) 10/28/17 05:45 Chloride 96 mmol/L (98-107) L 10/28/17 05:45 Carbon Dioxide 34 mmol/L (21-33) H 10/28/17 05:45 Anion Gap 10 (10-20) 10/28/17 05:45 BUN 22 mg/dL (7-21) H 10/28/17 05:45 Creatinine 0.6 mg/dl (0.7-1.2) L 10/28/17 05:45 Est GFR ( Amer) > 60 10/28/17 05:45 Est GFR (Non-Af Amer) > 60 10/28/17 05:45 POC Glucose (mg/dL) 109 mg/dL (65-110) 10/29/17 11:05 Random Glucose 116 mg/dL (70-110) H 10/28/17 05:45 Hemoglobin A1c 5.9 % (4.2-6.5) 10/24/17 06:30 Calcium 8.8 mg/dL (8.4-10.5) 10/28/17 05:45 Iron 23 ug/dL (45-180) L 10/24/17 07:00 TIBC 258 ug/dL (265-497) L 10/24/17 07:00 % Saturation 9 % (20-55) L 10/24/17 07:00 Total Bilirubin 0.4 mg/dL (0.2-1.3) 10/27/17 05:55 AST 40 U/L (14-36) H 10/27/17 05:55 ALT 40 U/L (7-56) 10/27/17 05:55 Alkaline Phosphatase 83 U/L (38-126) 10/27/17 05:55 Lactate Dehydrogenase 649 U/L (333-699) 10/23/17 13:25 Total Creatine Kinase 27 U/L (35-230) L 10/23/17 13:25 Troponin I 0.03 ng/mL D 10/23/17 13:25 NT-Pro-B Natriuret Pep 4230 pg/mL (0-450) H 10/23/17 13:25 Total Protein 6.4 g/dL (5.8-8.3) 10/27/17 05:55 Albumin 3.1 g/dL (3.0-4.8) 10/27/17 05:55 Globulin 3.3 gm/dL 10/27/17 05:55 Albumin/Globulin Ratio 1.0 (1.1-1.8) L 10/27/17 05:55 Triglycerides 58 mg/dL (35-160) 10/24/17 07:00 Cholesterol 127 mg/dL (130-200) L 10/24/17 07:00 LDL Cholesterol Direct 78 mg/dL (0-129) 10/24/17 07:00 HDL Cholesterol 31 mg/dL (29-60) 10/24/17 07:00 Vitamin B12 > 1000 pg/mL (239-931) H 10/24/17 07:00 Folate 17.5 ng/mL 10/24/17 07:00 Procalcitonin 0.13 NG/ML (0.19-0.49) L 10/25/17 06:45 TSH 3rd Generation 0.55 mIU/mL (0.46-4.68) 10/24/17 07:00 Venous Blood Potassium 3.7 mmol/L (3.6-5.2) 10/23/17 13:25 Urine Color Yellow (YELLOW) 10/23/17 13:50 Urine Appearance Sl cloudy (CLEAR) 10/23/17 13:50 Urine pH 7.0 (4.7-8.0) 10/23/17 13:50 Ur Specific [place] 1.010 (1.005-1.035) 10/23/17 13:50 Urine Protein Trace mg/dL (<30 mg/dL) H 10/23/17 13:50 Urine Glucose (UA) Negative mg/dL (NEGATIVE) 10/23/17 13:50 Urine Ketones Negative mg/dL (NEGATIVE) 10/23/17 13:50 Urine Blood Trace-intact (NEGATIVE) H 10/23/17 13:50 Urine Nitrate Negative (NEGATIVE) 10/23/17 13:50 Urine Bilirubin Negative (NEGATIVE) 10/23/17 13:50 Urine Urobilinogen 0.2 E.U./dL (<1 E.U./dL) 10/23/17 13:50 Ur Leukocyte Esterase Small [place]/uL (NEGATIVE) H 10/23/17 13:50 Urine RBC 0 - 2 /hpf (0-2) 10/23/17 13:50 Urine WBC 0 - 2 /hpf (0-6) 10/23/17 13:50 Ur Epithelial Cells 4 - 5 /hpf (0-5) 10/23/17 13:50 - Constitutional Appears: Well, No Acute Distress - Head Exam Head Exam: ATRAUMATIC, NORMAL INSPECTION, NORMOCEPHALIC - Eye Exam Eye Exam: Normal appearance - ENT Exam ENT Exam: Mucous Membranes Moist - Neck Exam Neck Exam: Normal Inspection - Respiratory Exam Respiratory Exam: NORMAL BREATHING PATTERN - Cardiovascular Exam Cardiovascular Exam: REGULAR RHYTHM. absent: JVD - GI/Abdominal Exam GI & Abdominal Exam: Distended, Normal Bowel Sounds. absent: Tenderness - Rectal Exam Rectal Exam: Deferred - Exam Additional comments: Deferred. - Extremities Exam Extremities Exam: Normal Inspection - Back Exam Back Exam: NORMAL INSPECTION - Neurological Exam Neurological Exam: Alert, Oriented x3 - Psychiatric Exam Psychiatric exam: Normal Affect, Normal Mood - Skin Skin Exam: Normal Color Assessment and Plan - Assessment and Plan (Free Text) Assessment: Epigastric pain. COPD. HTN. Dementia. Hx chronic constipation. Plan: EKG--->NSR, flipped t in III. Troponin stat. MOM has been ordered by pmd. Observation. Continue Rx,.
--- NOTE | 2017-10-30 04:24 | PN ---
DATE: 10/29/2017 SUBJECTIVE: The patient was seen and examined on 10/29/2017, lying down comfortably in bed when I saw her in the morning. Cough is better. Shortness of breath is better. No nausea. No vomiting. No hematuria or hematochezia. No swelling of the legs. No chest pain, no palpitations, but nurses called me now that the patient was having abdominal pain , milk of magnesia. The patient has bowel movement today. PHYSICAL EXAMINATION: VITAL SIGNS: Temperature 98, heart rate 91, respiratory rate is 20, blood pressure is 100/62, and pulse oximetry is 95% on 4 L nasal cannula. HEENT: Head, normocephalic and atraumatic. Eyes, PERRLA. Extraocular muscles intact. Conjunctivae are clear. Nose is patent. Mucous membranes are moist. NECK: Supple. No carotid bruits. No JVD or thyromegaly. LUNGS: Have few crackles bilaterally. HEART: S1 and S2 positive. ABDOMEN: Soft. No organomegaly. EXTREMITIES: No edema. No cyanosis. NEUROLOGIC: The patient is awake and alert. Moving all four extremities. No focal deficits. MEDICATIONS: Brovana; Rocephin; Colace; Cepacol lozenges; Dulcolax; DuoNeb; ferrous sulfate; Lovenox; Lyrica; MiraLax; Protonix; Pulmicort; Revatio; Robitussin; Singulair; Solu-Medrol, tapering dose; Tessalon. LABORATORY DATA: We do not have recent labs, but I reviewed old labs. Glucose is 109. ASSESSMENT AND PLAN: Ms. Kaitlin Altman is an 87-year-old female with chronic obstructive lung disease, interstitial infiltrates, cardiac diastolic dysfunction, pulmonary hypertension, encephalopathy, abdominal pain, milk of magnesia given, history of constipation, she has bowel movement today, diabetes mellitus, uncontrolled; hypertension. The patient is doing better. Starting a tapering dose of Solu-Medrol. Continue antibiotics. Elevate the head at 45 degrees. Aspiration precautions. Out of bed. Seen by Dr. Mcgregor physician this evening. Actually, the patient needs a rehab. I have discussion done with the family, but the family do not agree to sending the patient to rehab. We will make treatment plan with the family. Nadira Clemente MD MTDJam
[2017-10-30 07:15] LABS: MEAN CELL VOLUME 91.8 fl (80.0-105.0); MEAN CORPUSCULAR HEMOGLOBIN 28.5 pg (25.0-35.0); MEAN PLATELET VOLUME 10.5 fl (7.0-11.0); RED CELL DISTRIBUTION WIDTH 14.4 % (11.5-14.5); WHITE BLOOD COUNT 11.6 10^3/ul (4.5-11.0)
[2017-10-30 07:33] LABS: BLOOD UREA NITROGEN 23 mg/dL (7-21); CALCIUM 8.6 mg/dL (8.4-10.5); CARBON DIOXIDE 34 mmol/L (21-33); CHLORIDE 98 mmol/L (98-107); GFR AFRICAN-AMERICAN > 60; GLUCOSE,RANDOM 108 mg/dL (70-110); POTASSIUM 4.4 mmol/L (3.6-5.0); SODIUM 136 mmol/L (132-148)
[2017-10-30] MEDS: Albuterol-Ipratrop 3 mg / 0.5 (3 ml) UD IH SCH ×2 (08:05→13:17)
[2017-10-30] MEDS: Arformoterol 15 mcg/2 ml Inh Sol IH SCH (08:05)
[2017-10-30] MEDS: Budesonide 0.5 mg/2 ml Inhal Susp UD IH SCH (08:05)
[2017-10-30] MEDS: Iron Complex Polysacch 150mg Cap PO SCH (10:06)
[2017-10-30] MEDS: Sildenafil 20 MG TAB PO SCH ×3 (10:07→17:25)
[2017-10-30] MEDS: Pantoprazole 40 mg EC Tab PO SCH (10:07)
[2017-10-30] MEDS: POLYETHYLENE GLYCOL 3350 17 GM/Dose PACKET PO SCH (10:07)
[2017-10-30] MEDS: Enoxaparin 30 mg Syringe SC SCH (10:08)
[2017-10-30] MEDS: MethylPREDNISolone 40 mg Vial IVP SCH (10:09)
--- NOTE | 2017-10-30 10:27 | CARD ---
APPROVED REPORT EKG Measurement Heart [id number] <Conclusion> Normal sinus rhythm STTW changes c/w ischemia Low voltage lateral precordial leads
[2017-10-30 10:47] VITALS: PULSE 80; RESP 20; TEMP 98.3; O2SAT 94
[2017-10-30 13:57] VITALS: BP 120/68
--- NOTE | 2017-10-30 20:35 | PN ---
PULMONARY PROGRESS NOTE DATE: 10/30/2017 REFERRING PHYSICIAN: Nadira Clemente MD SUBJECTIVE: She is lying in the bed, head at 45 degree, feels much better, decreased cough, decreased shortness of breath, no nausea, no vomiting or diarrhea. No more abdominal pain. Has abdominal movement. No leg pain or leg swelling. OBJECTIVE: GENERAL: In no acute distress. VITAL SIGNS: Temp is 98, heart rate is 80, respiratory rate is 20, blood pressure 120/68, and pulse oximetry 94% on 4 L nasal cannula. HEENT: Moist mucus membrane. Crowded airway. NECK: Supple. No JVD. LUNGS: Has crackles at the bases. HEART: S1 and S2. ABDOMEN: Soft and nontender. No organomegaly. EXTREMITIES: There is no edema. NEUROLOGIC: Awake and alert. Follows simple commands. MEDICATIONS: She is on Brovana 50 mcg inhaled twice a day, Rocephin 1 g daily, Cepacol lozenges q. 2 hours p.r.n., Colace 100 mg twice a day, Dulcolax 10 mg daily, also on Ferrex 150 mg daily, Lasix 20 mg q. 8 hours, Lovenox 30 mg daily, Lyrica 25 mg twice a day, MiraLax 17 g daily, Protonix 40 mg daily, Pulmicort inhale twice a day, Revatio 20 mg 3 times a day, Robitussin with Codeine 5 mL q. 4 hours p.r.n., Singulair 10 mg daily, Solu-Medrol 20 mg q. 12 hour, Tessalon Perles 100 mg 3 times a day, q. 8 hours, Tylenol on p.r.n. basis. LABORATORY DATA: Shows hemoglobin 12.1, hematocrit 39.0, WBC 11.6, and platelet count is 309. Sodium 136, potassium 4.4, chloride 90, bicarbonate 34, BUN 23, creatinine 0.6, glucose 149, and calcium is 8.6. Microbiology; blood culture, sputum culture there is no growth. . IMPRESSION AND PLAN: Chronic obstructive lung disease, interstitial infiltrate, cardiac diastolic dysfunction, pulmonary hypertension, encephalopathy, diabetes, hypertension, and chronic constipation. Pulmonary point of view, doing okay. Continue IV inhaled bronchodilator. Continue cough suppressant. Gastric prophylaxis and deep vein thrombosis prophylaxis. We will order follow up x-ray to show the stability of infiltrate. Thank you and we will follow with you. Erika Newby MD
== END 2017-10-30 21:41 | disposition home or self-care (01) | DRG 190 ==
LOC: ED 12:54 → ERH 15:46 → 2RSO 16:40 → 5RNO 10-29 11:57
PROVIDERS: ADMIT Internal Medicine; ATTEND Internal Medicine
DX: J44.1 Chronic obstructive pulmonary disease with (acute) exacerbation (principal); G93.40 Encephalopathy, unspecified; I27.20 Pulmonary hypertension, unspecified; E11.65 Type 2 diabetes mellitus with hyperglycemia; I11.0 Hypertensive heart disease with heart failure; I50.9 Heart failure, unspecified; E87.5 Hyperkalemia; F03.90 Unspecified dementia, unspecified severity, without behavioral disturbance, psychotic disturbance, mood disturbance, and anxiety; K21.9 Gastro-esophageal reflux disease without esophagitis; G40.909 Epilepsy, unspecified, not intractable, without status epilepticus; T38.0X5A Adverse effect of glucocorticoids and synthetic analogues, initial encounter; J31.0 Chronic rhinitis; F41.9 Anxiety disorder, unspecified; K59.09 Other constipation; H40.9 Unspecified glaucoma; H26.9 Unspecified cataract; Z99.81 Dependence on supplemental oxygen; Z91.19 Patient's noncompliance with other medical treatment and regimen; Z87.440 Personal history of urinary (tract) infections; Z86.19 Personal history of other infectious and parasitic diseases; Z90.49 Acquired absence of other specified parts of digestive tract

== ENCOUNTER 2017-11-17 10:09 | Emergency (ER) | payer MEDICAID, MEDICARE ==
[2017-11-17 10:09] VITALS: BMI 32.9
[2017-11-17 10:36] VITALS: RESP 18; TEMP 98.1
--- NOTE | 2017-11-17 10:38 | ED PDOC ---
Arrival/HPI - General Chief Complaint: Finger,Hand,&Wrist Time Seen by Provider: 11/17/17 10:29 Historian: Patient - History of Present Illness Narrative History of Present Illness (Text): 11/17/17 10:33 87yo female with PMhx of COPD who present with complaint of left wrist pain s/p trauma this morning. The son who is by the bedside, states patient slipped, while coming back from bathroom and tried to break her fall by placing her left hand on the floor. The son states fall was witnessed by the father. Denies LOC, hitting head anywhere, dizziness, nausea, any other complaint. She is not on any anticoagulant. Past Medical History - Provider Review Nursing Documentation Reviewed: Yes - Past History Past History: Unable to Obtain - Infectious Disease Hx of Infectious Diseases: None - Tetanus Immunization Tetanus Immunization: Unknown - Reproductive Menopause: Yes - Cardiac Hx Hypertension: Yes - Pulmonary Hx Chronic Obstructive Pulmonary Disease (COPD): Yes (on 3L home O2) - Neurological Hx Neurological Disorder: Yes - HEENT Hx HEENT Disorder: Yes (nooksack) Hx Cataracts: Yes Hx Glaucoma: Yes - Renal Hx Renal Disorder: Yes (RENAL INSUFFICIENCY) - Endocrine/Metabolic Hx Endocrine Disorders: No - Hematological/Oncological Hx Blood Disorders: Yes Hx Shingles: Yes (in 2013) - Integumentary Other/Comment: H/O SCHINGLES - Musculoskeletal/Rheumatological Hx Falls: No - Gastrointestinal Hx Gastroesophageal Reflux: Yes - Genitourinary/Gynecological Hx Genitourinary Disorders: Yes Hx Incontinence: Yes Hx Urinary Tract Infection: Yes Other/Comment: hyst, fallopian tube sx - Psychiatric Hx Psychophysiologic Disorder: No Hx Depression: No Hx Emotional Abuse: No Hx Physical Abuse: No Hx Substance Use: No - Surgical History Hx Appendectomy: Yes Hx Cholecystectomy: Yes Other/Comment: FALLOPIAN TUBES - Anesthesia Hx Anesthesia: Yes - Suicidal Assessment Feels Threatened In Home Enviroment: No Family/Social History - Physician Review Nursing Documentation Reviewed: Yes Family/Social History: Unknown Family HX Smoking Status: Never Smoked Hx Alcohol Use: No Hx Substance Use: No Hx Substance Use Treatment: No Allergies/Home Meds Allergies/Adverse Reactions: Allergies acyclovir Adverse Reaction (Verified 11/17/17 10:22) SHORTNESS OF BREATH Home Medications: Home Meds Medication Instructions Recorded Confirmed Cyclobenzaprine [Flexeril] 5 mg PO HS 1029/15 01/09/18 Diclofenac Sodium 75 mg PO BID PRN 09/06/15 11/17/17 Review of Systems - Physician Review All systems were reviewed & negative as marked: Yes - Review of Systems Constitutional: Normal Eyes: Normal ENT: Normal Respiratory: Normal Cardiovascular: Normal Gastrointestinal: Normal Genitourinary Female: Normal Musculoskeletal: Arthralgias (LEft wrist) Skin: Normal Neurological: Normal Endocrine: Normal Hemo/Lymphatic: Normal Psychiatric: Normal Physical Exam Vital Signs Reviewed: Yes Vital Signs Temp Pulse Resp BP Pulse Ox 11/17/17 10:18 98.1 F 90 18 92/60 L 98 Temperature: Afebrile Blood Pressure: Normal Pulse: Regular Respiratory Rate: Normal Appearance: Positive for: Well-Appearing, Non-Toxic, Comfortable Pain Distress: None Mental Status: Positive for: Alert and Oriented X 3 - Systems Exam Head: Present: Atraumatic, Normocephalic Pupils: Present: PERRL Extroacular Muscles: Present: EOMI Conjunctiva: Present: Normal Mouth: Present: Moist Mucous Membranes Neck: Present: Normal Range of Motion Respiratory/Chest: Present: Clear to Auscultation, Good Air Exchange. No: Respiratory Distress, Accessory Muscle Use Cardiovascular: Present: Regular Rate and Rhythm, Normal S1, S2. No: Murmurs Abdomen: Present: Normal Bowel Sounds. No: Tenderness, Distention, Peritoneal Signs Back: Present: Normal Inspection Upper Extremity: Present: Normal ROM, NORMAL PULSES, Tenderness (LEft distal forearm/wrist), Swelling (Left distal forearm/wrist), Deformity. No: Cyanosis, Edema Lower Extremity: Present: Normal Inspection. No: Edema Neurological: Present: GCS=15, CN II-XII Intact, Speech Normal Skin: Present: Warm, Dry, Normal Color. No: Rashes Psychiatric: Present: Alert, Oriented x 3, Normal Insight, Normal Concentration Medical Decision Making ED Course and Treatment: 11/17/17 13:56 PT in ED for stated history. she was neurological intact. Left hand strength was 4/5 secondary to pain. NVI. Left wrist xray 11/17/17 13:59 IMPRESSION: Acute intra-articular fracture of the distal left radius. Called Dr. Cat and was waiting for a call back Case was DC with Dr. Clemente and she requested Dr. Gamboa called. case was DW Dr. Gamboa and he came and saw pt by the bedside in ED. Reduced fracture and placed arm on a splint. - RAD Interpretation Radiology Orders: 11/17/17 10:32 FOREARM LEFT [RAD] Stat WRIST, LEFT 3 VIEWS [RAD] Stat 11/17/17 14:24 WRIST, LEFT 3 VIEWS [RAD] Stat - Medication Orders Current Medication Orders: Discontinued Medications Tramadol HCl (Ultram) 50 mg PO STAT STA Stop: 11/17/17 10:34 Last Admin: 11/17/17 10:53 Dose: 50 mg [facility] Pain Assessment Document 11/17/17 10:53 SF (Rec: 11/17/17 10:53 SF [facility] [id number] Pain Reassessment Is this a pain reassessment? Yes Sleep Is patient sleeping during reassessment? No Presence of Pain Presence of Pain Yes Pain Scale Used Pain Scale Used Numeric Location Left, Right or Bilateral Left Pain Location Body Site Wrist Description Description Constant Re-Assess: [facility] Pain Assessment Document 11/17/17 11:53 OCS (Rec: 11/17/17 14:34 OCS [id number]) Pain Reassessment Is this a pain reassessment? Yes Sleep Is patient sleeping during reassessment? No Presence of Pain Presence of Pain Yes Pain Scale Used Pain Scale Used Numeric Location Left, Right or Bilateral Left Pain Location Body Site Wrist Description Description Constant Intensity of Pain at present 4 Disposition/Present on Arrival - Present on Arrival Any Indicators Present on Arrival: No History of DVT/PE: No History of Uncontrolled Diabetes: No Urinary Catheter: No History of Decub. Ulcer: No History Surgical Site Infection Following: None, Abdominal Surgery - Disposition Have Diagnosis and Disposition been Completed?: Yes Diagnosis: Wrist fracture Disposition: HOME/ ROUTINE Disposition Time: 14:25 Patient Plan: Discharge Patient Problems: Current Active Problems Problem Status Onset Wrist fracture Acute Condition: STABLE Discharge Instructions (ExitCare): Wrist Fracture in Adults (ED) Additional Instructions: Follow up with Dr. Gamboa Return to ED for any new or worsening symptoms Referrals: Nadira Clemente MD [Primary Care Provider] - Follow up with primary Aleksey Gamboa DO [Staff Provider] - Follow up with primary Forms: [email or web address] (Welsh)
--- NOTE | 2017-11-17 12:35 | RAD ---
PROCEDURE: Radiographs of the Left Forearm HISTORY: forearm pain s/p trauma COMPARISON: 2017. Left wrist reported separately. TECHNIQUE: Frontal and lateral views obtained. FINDINGS: BONES: Distal radial fracture with a degree of impaction and dorsal angulation. JOINT SPACES: Unremarkable. OTHER FINDINGS: None. IMPRESSION: Distal left radial fracture incompletely visualized. No abnormalities identified in the more proximal aspect of the left forearm.
--- NOTE | 2017-11-17 12:36 | RAD ---
PROCEDURE: Left Wrist Radiographs. HISTORY: wrist pain s/p trauma COMPARISON: None. FINDINGS: BONES: Distal left radial fracture with volar angulation. 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 SOFT TISSUES: Soft tissue swelling attests to the acuity of the fracture. OTHER FINDINGS: None. IMPRESSION: Acute intra-articular fracture of the distal left radius.
[2017-11-17] MEDS ORDERED: Lidocaine 1% Inj (20ml) ONE (13:50)
[2017-11-17] MEDS ORDERED: Bupivacaine 0.5% Inj(30mL) ONE (13:51)
[2017-11-17 15:19] VITALS: BP 100/56; PULSE 92; O2SAT 100
--- NOTE | 2017-11-17 15:19 | RAD ---
PROCEDURE: Left Wrist Radiographs. HISTORY: Post reduction COMPARISON: Pre reduction film earlier today FINDINGS: BONES: There is no change in the alignment of the distal radial fracture. There is a moderate amount of dorsal angulation and impaction. JOINTS: Normal. No dislocation. SOFT TISSUES: Normal. OTHER FINDINGS: None. IMPRESSION: There is no change in the alignment of the distal radial fracture. There is a moderate amount of dorsal angulation and impaction.
--- NOTE | 2017-11-17 20:14 | CON ---
DATE: 11/17/2017 ORTHOPEDIC CONSULTATION HISTORY OF PRESENT ILLNESS: I was called to see the patient with highly comminuted dorsally displaced fracture of the left non-dominant extremity, closed injury with a lot of ecchymosis, that the fracture happened early this morning and today it is right now about 2:30 p.m. Patient is an 87-year-old female. No surgery is necessary although we did a hematoma block with lidocaine and did a close reduction manually with digital traction to get the wrist in a better position but not anatomic position but it will be a functional wrist, simply distracted the fracture and palmar flexed to get rid of the dorsiflexion, radial shortening. Now, we applied a well-padded short-arm cast with plaster of Glenda and abundant padding to help hold it in place and to allow for swelling to subside. I will see the patient in 10 days. No surgery is necessary, but the reduction looks much better and we will see her in 10 days in the office. I have my name and address in case of emergency or too much pain and to take Tylenol for pain. Patient was told that hand would get ecchymotic and just to keep it elevated as much as possible. FINAL DIAGNOSES: Dorsally displaced intraarticular fracture, left radius, underwent hematoma block and close reduction to place the wrist in better position which would be palmar flexion and radial lengthening, and the ulnar styloid was also broken too that was cared for in a short-arm cast. Aleksey Gamboa DO
== END 2017-11-17 15:12 | disposition home or self-care (01) ==
LOC: ED 10:09
DX: S52.572A Other intraarticular fracture of lower end of left radius, initial encounter for closed fracture (principal); W01.0XXA Fall on same level from slipping, tripping and stumbling without subsequent striking against object, initial encounter; I10 Essential (primary) hypertension; J44.9 Chronic obstructive pulmonary disease, unspecified; Z99.81 Dependence on supplemental oxygen

== ENCOUNTER 2018-02-23 12:06 | Inpatient (IN) | payer MEDICARE, MEDICAID ==
[2018-02-23 12:27] VITALS: BMI 23.4
--- NOTE | 2018-02-23 12:30 | ED PDOC ---
Arrival/HPI - General Chief Complaint: Shortness Of Breath Time Seen by Provider: 02/23/18 12:30 Historian: Patient, Caregiver - History of Present Illness Narrative History of Present Illness (Text): 02/23/18 12:30 A 87 year old female, whose past medical asthma, presents to the emergency department accompanied by homemaker and nephew complaining of worsening shortness of breath over the past 3 days. Patient and family primarily speak [place], history obtained through scribe. Homemaker reports patient was recently diagnosed with the flu. She notes associated chills, productive cough and chest congestion. Homemaker denies fever, nausea, vomiting, diarrhea, abdominal pain, chest pain or any other complaints. pt with decr appetite pt was evaluated by visiting physician and noted worsening sob, and instructed patient to come to ED for further eval/mgt/txt pt is here for further eval PMD: Dr. Clemente Time/Duration: Other (3 days) Symptom Onset: Gradual Symptom Course: Worsening Severity Level: Severe Activities at Onset: Rest Context: Home Past Medical History - Provider Review Nursing Documentation Reviewed: Yes - Travel History Have you recently traveled outside [place] w/in the past 3 mons?: No - Past History Past History: Unable to Obtain - Infectious Disease Hx of Infectious Diseases: None - Tetanus Immunization Tetanus Immunization: Unknown - Reproductive Menopause: Yes Currently : No - Cardiac Hx Hypertension: Yes - Pulmonary Hx Chronic Obstructive Pulmonary Disease (COPD): Yes (on 3L home O2) - Neurological Hx Neurological Disorder: Yes - HEENT Hx HEENT Disorder: Yes ([place]) Hx Cataracts: Yes Hx Glaucoma: Yes - Renal Hx Renal Disorder: Yes (RENAL INSUFFICIENCY) - Endocrine/Metabolic Hx Endocrine Disorders: No - Hematological/Oncological Hx Blood Disorders: Yes Hx Shingles: Yes (in 2013) - Integumentary Other/Comment: H/O SCHINGLES - Musculoskeletal/Rheumatological Hx Falls: No - Gastrointestinal Hx Gastroesophageal Reflux: Yes - Genitourinary/Gynecological Hx Genitourinary Disorders: Yes Hx Incontinence: Yes Hx Urinary Tract Infection: Yes Other/Comment: hyst, fallopian tube sx - Psychiatric Hx Psychophysiologic Disorder: No Hx Depression: No Hx Emotional Abuse: No Hx Physical Abuse: No Hx Substance Use: No - Surgical History Hx Appendectomy: Yes Hx Cholecystectomy: Yes Other/Comment: FALLOPIAN TUBES - Anesthesia Hx Anesthesia: Yes - Suicidal Assessment Feels Threatened In Home Enviroment: No Family/Social History - Physician Review Nursing Documentation Reviewed: Yes Family/Social History: No Known Family HX Smoking Status: Never Smoked Hx Alcohol Use: No Hx Substance Use: No Hx Substance Use Treatment: No Allergies/Home Meds Allergies/Adverse Reactions: Allergies acyclovir Adverse Reaction (Verified 11/17/17 10:22) SHORTNESS OF BREATH Home Medications: Home Meds Medication Instructions Recorded Confirmed Cyclobenzaprine [Flexeril] 5 mg PO Q8 PRN 09/06/15 02/23/18 Diclofenac Sodium 75 mg PO BID PRN 09/06/15 02/23/18 Docusate Sodium [Dok] 100 mg PO Q8 PRN 02/23/18 02/23/18 Esomeprazole Magnesium [Nexium] 40 mg PO DAILY 02/23/18 02/23/18 Ibuprofen [Motrin Tab] 600 mg PO DAILY PRN 02/23/18 02/23/18 Meclizine [Antivert] 12.5 mg PO DAILY 02/23/18 02/23/18 Nitrofurantoin Monohyd/M-Cryst 100 mg PO BID 02/23/18 02/23/18 [Nitrofurantoin [place]-Mcr 100 mg] traMADol [Ultram] 50 mg PO DAILY 02/23/18 02/23/18 Review of Systems - Physician Review All systems were reviewed & negative as marked: Yes - Review of Systems Constitutional: Night Sweats. absent: Fevers Eyes: Normal Respiratory: SOB, Cough, Sputum, Other (chest congestion) Cardiovascular: absent: Chest Pain Gastrointestinal: absent: Abdominal Pain, Diarrhea, Nausea, Vomiting Genitourinary Female: Normal Musculoskeletal: Normal Skin: Normal Neurological: Normal Endocrine: Normal Hemo/Lymphatic: Normal Psychiatric: Normal Physical Exam Vital Signs Reviewed: Yes Vital Signs Temp Pulse Resp BP Pulse Ox 02/23/18 19:30 85 17 125/70 98 02/23/18 17:02 87 18 123/65 99 02/23/18 15:32 84 18 133/73 99 02/23/18 14:00 98 H 18 124/61 99 02/23/18 13:00 19 99 02/23/18 12:37 94 L 02/23/18 12:31 99 02/23/18 12:30 74 L 02/23/18 12:26 99.4 F 102 H 18 126/64 95 Temperature: Afebrile Blood Pressure: Normal Pulse: Tachycardic Respiratory Rate: Tachypneic (decr pulse ox) Appearance: Positive for: Well-Appearing, Non-Toxic, Uncomfortable, Other (alert /awake, GCS = 15, oriented x 2 (not to date/time), pt is hard of hearing, cooperative, resting in bed, uncomfortable, + active coughing, mild distress due to respiration) Pain Distress: Mild Mental Status: Positive for: other (alert/awake, oriented x 2 (not to date/time) ) - Systems Exam Head: Present: Atraumatic, Normocephalic, Other (bi-temporal wasting noted) Pupils: Present: PERRL, Other (visual field intact b/l, no nystagmus, no photophobia) Extroacular Muscles: Present: EOMI Conjunctiva: Present: Normal Ears: Present: Normal Mouth: Present: Dry, Other (fair dentitions, dry oral mucosa, no drooling/ stridor, no exudate/lesions; uvula/tongue are midline) Pharnyx: Present: Normal Nose (External): Present: Atraumatic Nose (Internal): Present: Normal Inspection Neck: Present: Normal Range of Motion, Trachea Midline. No: Meningeal Signs, MIDLINE TENDERNESS Respiratory/Chest: Present: Decreased Breath Sounds (bilaterally), Rales (on right lower lobe), Tachypneic, Other (coarse breath sounds on right lower lobe; decr breath sounds noted right > left, no accessory muscle use noted, mild tachypenia). No: Respiratory Distress, Accessory Muscle Use Cardiovascular: Present: Regular Rate and Rhythm, Normal S1, S2. No: Murmurs Abdomen: Present: Normal Bowel Sounds, Other (thin female, no focal tenderness, no masses/rebound/guarding/rigidity, no castro's sign, no mcburney's point tenderness). No: Tenderness, Distention, Peritoneal Signs Back: Present: Normal Inspection. No: CVA Tenderness, Midline Tenderness Upper Extremity: Present: Normal Inspection, Normal ROM, NORMAL PULSES, Neurovascularly Intact. No: Cyanosis, Edema Lower Extremity: Present: Normal Inspection, NORMAL PULSES, Normal ROM, Neurovascularly Intact. No: Edema Neurological: Present: GCS=15, CN II-XII Intact, Speech Normal Skin: Present: Warm, Dry, Normal Color, Other (cap refill ~ 1sec, no ulcerations , no petechiae, no rashes). No: Rashes Psychiatric: Present: Alert, Normal Insight, Normal Concentration Medical Decision Making ED Course and Treatment: 02/23/18 12:30 Impression: A 87 year old female with shortness of breath, productive cough and chest congestion Differential Diagnosis included but are not limited to: Rule out Sepsis, PNA, UTI, Heart failure, Infectious cause Plan: -- Chest xray -- EKG -- Labs -- Blood culture -- Urinalysis -- Influenza A B stat, Rapid strep -- Duoneb, Aspirin, Rocephin and Zithromax -- Reassess and disposition Progress Notes: 02/23/18 14:[address] Clemente, who is aware of and in agreement with admission to telemetry. States to start patient on Steroids for concern of inflammatory disorder. Requests Dr. Newby and Dr. Pederson for consult. 02/23/18 1500 pt continues to have persistent cough pt is otherwise comfortable 1800 pt's son is at bedside made aware of pt's medical results agrees with admission Re-evaluation Time: 15:00 Reassessment Condition: Improving,but remains with symptoms - Critical Care Critical Care Minutes: 45 minutes Critical Care Time: Excluding Proc Time Narrative Critical Care (Text): 02/24/18 00:21 critical care time: 45min, excluding procedure time, excluding time teaching residents/students/mid-level providers; including initial eval/diagnosis, diagnostic interpretation, re-eval, consultations, final disposition - Lab Interpretations Lab Results: 02/23/18 12:35 02/23/18 12:35 Lab Results 02/23/18 13:10: Urine Color Yellow, Urine Appearance Clear, Urine pH 7.0, Ur Specific [place] 1.020, Urine Protein 30 H, Urine Glucose (UA) Negative, Urine Ketones 15 H, Urine Blood Trace-intact H, Urine Nitrate Negative, Urine Bilirubin Negative, Urine Urobilinogen 1.0 H, Ur Leukocyte Esterase Negative, Urine RBC 2 - 5, Urine WBC 0 - 2, Ur Epithelial Cells 0 - 2, Urine Bacteria Few 02/23/18 13:00: pO2 45, VBG pH 7.36, VBG pCO2 55.0, VBG HCO3 31.1 H, VBG Total CO2 32.8 H, VBG O2 Sat (Calc) 84.0 H, VBG Base Excess 4.2 H, VBG Potassium 3.9, Glucose 137 H, Lactate 1.8, FiO2 21.0, Sodium 133.0, Chloride 97.0 L, Venous Blood Potassium 3.9 02/23/18 12:35: Influenza Typ A,B (EIA) Negative for flu a/b 02/23/18 12:35: Grp A Beta Strep Ag Negative 02/23/18 12:35: Sodium 134, Potassium 4.0, Chloride 96 L, Carbon Dioxide 29, Anion Gap 13, BUN 12, Creatinine 0.6 L, Est GFR ( Amer) > 60, Est GFR ( Non-Af Amer) > 60, Random Glucose 133 H, Calcium 8.9, Total Bilirubin 0.5, AST 29, ALT 25, Alkaline Phosphatase 81, Lactate Dehydrogenase 491, Total Creatine Kinase 26 L, Troponin I < 0.01, NT-Pro-B Natriuret Pep 612 H, Total Protein 7.4 , Albumin 4.0, Globulin 3.3, Albumin/Globulin Ratio 1.2 02/23/18 12:35: PT 13.5 H, INR 1.17 H, APTT 30.8 02/23/18 12:35: WBC 9.3, RBC 4.74, Hgb 14.0, Hct 42.2, MCV 89.0, MCH 29.5, MCHC 33.2, RDW 14.2, Plt Count 206, MPV 11.0, Gran % 84.0 H, Lymph % (Auto) 10.0 L, [place] % (Auto) 5.3, Eos % (Auto) 0.5 L, Baso % (Auto) 0.2, Gran # 7.84 H, Lymph # (Auto) 0.9 L, [place] # (Auto) 0.5, Eos # (Auto) 0.1, Baso # (Auto) 0.02 I have reviewed the lab results: Yes Interpretation: Abnormal lab values (elevated BNP) - RAD Interpretation Narrative RAD Interpretations (Text): Report Date : 02/23/2018 14:12:59 Procedure: Chest xray Dictator : Jaret Diaz MD IMPRESSION: Diffuse interstitial fibrosis of again noted. Note that the possibility of superimposed pneumonia not excluded. Enlarged right hilum. Radiology Orders: 02/23/18 12:30 CHEST TWO VIEWS (PA/LAT) [RAD] Stat Clinic Director: Radiologist - EKG Interpretation EKG Interpretation (Text): 02/24/18 00:27 sinus tach at 100bpm, normal axis, no ectopy, inverted T in leads V1-V6, III, diffuse low voltage inf leads, no st changes, ABNL EKG; some changes compare with old ekg 10/2017 Interpreted by ED Physician: Yes Type: 12 lead EKG Comparison: Different from prev. EKG - Medication Orders Current Medication Orders: Albuterol Sulfate (Albuterol 0.083% Inhal Jil (2.5 Mg/3 Ml) Ud) 2.5 mg IH [id number] PRN PRN Reason: Shortness of Breath Aspirin (Ecotrin) 81 mg PO DAILY RAKESH Budesonide (Pulmicort Respules) 0.5 mg INH [id number] RAKESH Last Admin: 02/23/18 20:47 Dose: 0.5 mg Docusate Sodium (Colace) 100 mg PO Q8 PRN PRN Reason: Constipation Sodium Chloride (Sodium Chloride 0.9%) 1,000 mls @ 50 mls/hr IV .Q20H RAKESH Last Admin: 02/23/18 16:05 Dose: 50 mls/hr eMAR Start Stop Document 02/23/18 16:05 RG (Rec: 02/23/18 16:08 RG [id number]) Intravenous Solution Start Date 02/23/18 Start Time 16:05 Ceftriaxone Sodium (Rocephin 1 Gram Ivpb) 1 gm in 100 mls @ 100 mls/hr IVPB DAILY RAKESH PRN Reason: Protocol Meclizine HCl (Antivert) 12.5 mg PO DAILY RAKESH Methylprednisolone (Solu-Medrol) 40 mg IVP Q12 RAKESH Last Admin: 02/23/18 22:28 Dose: 40 mg IVP Administration Document 02/23/18 22:28 KTR (Rec: 02/23/18 22:28 KTR [id number]) Charges for Administration # of IVP Administrations 1 Pantoprazole Sodium (Protonix Ec Tab) 40 mg PO ACB RAKESH Tramadol HCl (Ultram) 50 mg PO DAILY RAKESH Discontinued Medications Albuterol/Ipratropium (Duoneb 3 Mg/0.5 Mg (3 Ml) Ud) 3 ml IH Q15M RAKESH Stop: 02/23/18 13:16 Last Admin: 02/23/18 13:49 Dose: 3 ml Aspirin (Ecotrin) 81 mg PO STAT STA Stop: 02/23/18 12:31 Last Admin: 02/23/18 13:08 Dose: 81 mg Guaifenesin/Dextromethorphan (Robitussin Dm) 10 ml PO ONCE ONE Stop: 02/23/18 14:43 Last Admin: 02/23/18 16:05 Dose: 10 ml Ceftriaxone Sodium (Rocephin 1 Gram Ivpb) 1 gm in 100 mls @ 200 mls/hr IVPB STAT STA PRN Reason: Protocol Stop: 02/23/18 13:01 Last Admin: 02/23/18 13:08 Dose: 200 mls/hr eMAR Start Stop Document 02/23/18 13:08 SF (Rec: 02/23/18 13:08 SF [id number]) Intravenous Solution Start Date 02/23/18 Start Time 13:08 End Date 02/23/18 End time 13:38 Total Infusion Time 30 Azithromycin (Zithromax 500mg In Ns) 500 mg in 250 mls @ 167 mls/hr IVPB STAT STA PRN Reason: Protocol Stop: 02/23/18 14:02 Last Admin: 02/23/18 13:49 Dose: 167 mls/hr eMAR Start Stop Document 02/23/18 13:49 SF (Rec: 02/23/18 13:50 SF [id number]) Intravenous Solution Start Date 02/23/18 Start Time 13:50 End Date 02/23/18 End time 15:20 Total Infusion Time 90 Methylprednisolone (Solu-Medrol) 125 mg IVP STAT STA Stop: 02/23/18 14:43 Last Admin: 02/23/18 16:04 Dose: 125 mg IVP Administration Document 02/23/18 16:04 RG (Rec: 02/23/18 16:05 RG [id number]) Charges for Administration # of IVP Administrations 1 - Scribe Statement The provider has reviewed the documentation as recorded by the Scribe Anya Smith Provider Scribe Attestation: All medical record entries made by the Scribe were at my direction and personally dictated by me. I have reviewed the chart and agree that the record accurately reflects my personal performance of the history, physical exam, medical decision making, and the department course for this patient. I have also personally directed, reviewed, and agree with the discharge instructions and disposition. Disposition/Present on Arrival - Present on Arrival Any Indicators Present on Arrival: No History of DVT/PE: No History of Uncontrolled Diabetes: No Urinary Catheter: No History of Decub. Ulcer: No History Surgical Site Infection Following: None, Abdominal Surgery - Disposition Have Diagnosis and Disposition been Completed?: Yes Diagnosis: Acute bronchitis, Hypoxia, Respiratory distress, Weakness Disposition: HOSPITALIZED Disposition Time: 14:30 Patient Plan: Admission, Telemetry Patient Problems: Current Active Problems Problem Status Onset Acute bronchitis Acute Hypoxia Acute Respiratory distress Acute Weakness Acute Condition: STABLE
[2018-02-23] MEDS ORDERED: cefTRIAXone 1 gm 1 GM/100 ML BAG IVPB STA (12:32)
[2018-02-23] MEDS ORDERED: Azithromycin 500MG/NS 250ml 500 MG/250 ML BAG IVPB STA (12:33)
[2018-02-23] MEDS: Albuterol-Ipratrop 3 mg / 0.5 (3 ml) UD IH SCH ×3 (13:07→13:49)
[2018-02-23 13:10] LABS: VENOUS BLOOD GAS BASE EXCESS 4.2 mmol/L (0.0-2.0); VENOUS BLOOD GAS PO2 45 mm/Hg (30-55); VENOUS BLOOD PH 7.36 (7.32-7.43)
[2018-02-23 13:12] LABS: BASO # 0.02 K/mm3 (0.0-2.0); BASO % 0.2 % (0.0-3.0); EOS # 0.1 (0.0-0.7); EOS % 0.5 % (1.5-5.0); GRAN # 7.84 (1.4-6.5); LYMPH # 0.9 (1.2-3.4); MEAN CORPUSCULAR HEMOGLOBIN 29.5 pg (25.0-35.0); MEAN CORPUSCULAR HGB CONC 33.2 g/dl (31.0-37.0); MONO # 0.5 (0.1-0.6); MONO % 5.3 % (1.0-6.0); RBC 4.74 10^6/uL (3.5-6.1); RED CELL DISTRIBUTION WIDTH 14.2 % (11.5-14.5); WHITE BLOOD COUNT 9.3 10^3/ul (4.5-11.0)
[2018-02-23 13:20] LABS: URINE BILIRUBIN NEGATIVE (NEGATIVE); URINE BLOOD TRACE-INTACT (NEGATIVE); URINE GLUCOSE (UA) NEGATIVE (NEGATIVE); URINE LEUKOCYTE ESTERASE NEGATIVE Leu/uL (NEGATIVE); URINE PROTEIN 30 mg/dL (<30 mg/dL)
[2018-02-23 13:22] LABS: URINE APPEARANCE CLEAR (CLEAR); URINE COLOR YELLOW (YELLOW)
[2018-02-23 13:24] LABS: ALB/GLOB RATIO 1.2 (1.1-1.8); ALT/SGPT 25 U/L (7-56); AST/SGOT 29 U/L (14-36); BLOOD UREA NITROGEN 12 mg/dL (7-21); CALCIUM 8.9 mg/dL (8.4-10.5); GFR AFRICAN-AMERICAN > 60; GFR NON-AFRICAN AMERICAN > 60
[2018-02-23 13:27] LABS: INR 1.17 (0.93-1.08); PARTIAL THROMBOPLASTIN TIME 30.8 Seconds (25.1-36.5); PROTHROMBIN TIME 13.5 SECONDS (9.4-12.5)
[2018-02-23 13:35] LABS: B-TYPE NATRIURETIC PEPTIDE 612 pg/mL (0-450); TROPONIN I < 0.01 ng/mL
[2018-02-23 13:49] LABS: URINE BACTERIA FEW (NEG); URINE EPITHELIAL CELLS 0 - 2 /hpf (0-5); URINE WBC 0 - 2 /hpf (0-6)
--- NOTE | 2018-02-23 14:14 | RAD ---
HISTORY: shortness of breath, coughing COMPARISON: Comparison chest dated 10/26/2017. Comparison also made with CT scan chest 09/17/2017. TECHNIQUE: Chest PA and lateral FINDINGS: LUNGS: The current study demonstrates what is felt to represent diffuse interstitial fibrosis on. Note that the possibility of superimposed on pneumonia cannot be excluded. Enlargement right hilum. PLEURA: No significant pleural effusion identified. No pneumothorax apparent. CARDIOVASCULAR: Cardiomegaly. OSSEOUS STRUCTURES: No significant abnormalities. VISUALIZED UPPER ABDOMEN: Normal. OTHER FINDINGS: None. IMPRESSION: Diffuse interstitial fibrosis of again noted. Note that the possibility of superimposed pneumonia not excluded. Enlarged right hilum.
[2018-02-23] MEDS ORDERED: guaiFENesin DM 200 mg-20 mg/10 ml UD PO ONE (14:42)
[2018-02-23] MEDS ORDERED: Sodium Chloride 0.9% 1,000 ML IV SCH (15:00)
[2018-02-23] MEDS ORDERED: Albuterol 0.083% Inhal Sol (2.5 mg/3 mL) UD IH PRN (18:58)
[2018-02-23 19:29] LABS: HDL CHOLESTEROL 44 mg/dL (29-60); IRON 19 ug/dL (45-180)
[2018-02-23 19:38] LABS: % IRON SATURATION 7 % (20-55); TOTAL IRON BINDING CAPACITY 282 ug/dL (265-497)
[2018-02-23 19:40] LABS: LDL CHOLESTEROL 75 mg/dL (0-129)
[2018-02-23] MEDS: Budesonide 0.5 mg/2 ml Inhal Susp UD INH SCH (20:47)
--- NOTE | 2018-02-23 21:25 | CARD ---
APPROVED REPORT EKG Measurement Heart [id number] <Conclusion> Poor data quality, interpretation may be adversely affected Sinus tachycardia T wave abnormality, consider anterolateral ischemia Abnormal ECG
[2018-02-23] MEDS: MethylPREDNISolone 40 mg Vial IVP SCH (22:28)
[2018-02-24 07:08] LABS: BLOOD UREA NITROGEN 12 mg/dL (7-21); CALCIUM 8.3 mg/dL (8.4-10.5); GFR AFRICAN-AMERICAN > 60; GFR NON-AFRICAN AMERICAN > 60
[2018-02-24 07:09] LABS: B-TYPE NATRIURETIC PEPTIDE 663 pg/mL (0-450)
[2018-02-24 07:11] LABS: URINE BILIRUBIN NEGATIVE (NEGATIVE); URINE BLOOD NEGATIVE (NEGATIVE); URINE GLUCOSE (UA) NEGATIVE (NEGATIVE); URINE LEUKOCYTE ESTERASE NEGATIVE Leu/uL (NEGATIVE); URINE PROTEIN NEGATIVE mg/dL (<30 mg/dL); URINE UROBILINOGEN 0.2 E.U./dL (<1 E.U./dL)
[2018-02-24 07:12] LABS: URINE APPEARANCE CLEAR (CLEAR); URINE COLOR YELLOW (YELLOW)
--- NOTE | 2018-02-24 07:22 | CON ---
DATE: 02/23/2018 PULMONARY CONSULT REFERRING PHYSICIAN: Nadira Clemente MD REASON FOR CONSULT: Cough, shortness of breath. HISTORY OF PRESENT ILLNESS: This is an 87-year-old female with multiple medical issues including a history of encephalopathy in the past, asthma, history of renal insufficiency, history of GERD, UTI, brought into emergency room with last few days having cough, shortness of breath, not much sputum production. No nausea, no vomiting, no diarrhea. No leg pain or leg swelling. PAST MEDICAL HISTORY: As per history of present illness. FAMILY HISTORY: No significant cardiopulmonary disease reported. SOCIAL HISTORY: Nonsmoker, nondrinker. ALLERGIES: TO ACYCLOVIR. MEDICATIONS: She is on albuterol/Atrovent nebulizer every 6 hours p.r.n., Antivert 12.5 mg daily, Colace 100 mg every 8 hours p.r.n., Ecotrin 81 mg daily, Protonix 40 mg a.c.b., Pulmicort inhaled twice a day, Rocephin 1 gm IV daily, IV fluid normal saline 50 mL per hour, Solu-Medrol 40 mg every 12 hours, and Ultram 50 mg daily. REVIEW OF SYSTEMS: No headache, no rhinitis. Has cough, shortness of breath. Clear sputum. No nausea, no vomiting, no diarrhea. No dysuria. No leg pain or leg swelling. PHYSICAL EXAMINATION: VITAL SIGNS: Temperature is 98, heart rate is 85, respiratory rate is 18, blood pressure 123/65, pulse ox 98% on nasal cannula. HEENT: Moist mucous membrane. No ulcer or thrush noted. NECK: Supple. No JVD. LUNGS: Scattered rhonchi. Few crackles. HEART: S1 and S2. ABDOMEN: Soft, nontender. No organomegaly. EXTREMITIES: No edema. NEUROLOGIC: Awake, alert. Follows simple command. LABORATORY DATA: Shows hemoglobin 14.0, hematocrit 42.2, WBC 9.3, platelet is 206. INR 1.17. PTT 31. VBG show pH 7.36, pCO2 is 55, O2 is 45 that is on nasal cannula. Sodium 134, potassium 4.0, chloride 96, bicarbonate 29, BUN 12, creatinine 0.6, glucose 133, calcium 8.9, iron is 19, AST 29, ALT 25, alk phos is 81. Troponin less than 0.01. ProBNP 612. Albumin 4.0. Cholesterol is 148. Urinalysis shows wbc's 0 to 2. Influenza A and B is negative. Group A Beta Strep antigen is negative. Chest x-ray done in the ER showed diffuse interstitial fibrosis, pneumonia cannot be excluded, enlarged right hilum. IMPRESSION AND PLAN: Chronic obstructive lung disease, interstitial infiltrate, history of cardiac diastolic dysfunction, pulmonary hypertension, encephalopathy, diabetes, hypertension, also has chronic constipation, history of urinary tract infection. Pulmonary point of view, agree with Dr. Clemente. Continue antibiotics, IV steroids, inhaled bronchodilator. We will send proBNP and procalcitonin in the morning. Aspiration precaution. Follow up labs in the morning. Spoke to the patient's son at bedside. All the questions answered. Thank you and we will follow with you. Erika Newby MD
[2018-02-24 07:26] LABS: HEMOGLOBIN 11.8 g/dL (12.0-16.0); MEAN CELL VOLUME 88.1 fl (80.0-105.0); MEAN CORPUSCULAR HEMOGLOBIN 29.1 pg (25.0-35.0); MEAN CORPUSCULAR HGB CONC 33.1 g/dl (31.0-37.0); RBC 4.05 10^6/uL (3.5-6.1); RED CELL DISTRIBUTION WIDTH 14.1 % (11.5-14.5); WHITE BLOOD COUNT 6.1 10^3/ul (4.5-11.0)
[2018-02-24] MEDS: Budesonide 0.5 mg/2 ml Inhal Susp UD INH SCH ×2 (08:00→19:30)
--- NOTE | 2018-02-24 08:07 | CP.PCM.CON ---
History of Present Illness - History of Present Illness History of Present Illness: CARDIOLOGY CONSULT Seen and examined by me and Dr. Riley Reason for consult: Tachycardia, shortness of breath History of present illness: A 87 year old female who came in to the ER due to worsening shortness of breath. She was brought in by homemaker and nephew. Patient speaks lebanese. Homemaker reports patient was recently diagnosed with the flu. She notes associated chills, productive cough and chest congestion. Review of Systems - Review of Systems Systems not reviewed;Unavailable: Language Barrier Review of Systems: speaks lebanese - Constitutional Additional comments: cachexic - Cardiovascular Additional comments: denies chest pain, slight shortness on breath on NC 3 l/min - Respiratory Respiratory: Dyspnea on Exertion, Chest Congestion Additional comments: coughing clear moderate amount of mucus - Gastrointestinal Additional comments: denies nausea and vomiting, denies abdominal pain - Genitourinary Genitourinary: Urinary Incontinence - Integumentary Integumentary: Dry Skin Past Patient History - Infectious Disease Hx of Infectious Diseases: None - Tetanus Immunizations Tetanus Immunization: Unknown - Past Social History Smoking Status: Never Smoked - CARDIAC Hx Hypertension: Yes - PULMONARY Hx Chronic Obstructive Pulmonary Disease (COPD): Yes (on 3L home O2) - NEUROLOGICAL Hx Neurological Disorder: Yes - HEENT Hx HEENT Problems: Yes (point [place]) Hx Cataracts: Yes Hx Glaucoma: Yes - RENAL Hx Chronic Kidney Disease: Yes (RENAL INSUFFICIENCY) - ENDOCRINE/METABOLIC Hx Endocrine Disorders: No - HEMATOLOGICAL/ONCOLOGICAL Hx Blood Disorders: Yes Hx Shingles: Yes (in 2013) - INTEGUMENTARY Other/Comment: H/O SCHINGLES - MUSCULOSKELETAL/RHEUMATOLOGICAL Hx Falls: No - GASTROINTESTINAL Hx Gastroesophageal Reflux: Yes - GENITOURINARY/GYNECOLOGICAL Hx Genitourinary Disorders: Yes Hx Incontinence: Yes Hx Urinary Tract Infection: Yes Other/Comment: hyst, fallopian tube sx - PSYCHIATRIC Hx Psychophysiologic Disorder: No Hx Depression: No Hx Emotional Abuse: No Hx Physical Abuse: No Hx Substance Use: No - SURGICAL HISTORY Hx Appendectomy: Yes Hx Cholecystectomy: Yes Other/Comment: FALLOPIAN TUBES - ANESTHESIA Hx Anesthesia: Yes Meds Allergies/Adverse Reactions: Allergies Allergy/AdvReac Type Severity Reaction Status Date / Time acyclovir AdvReac SHORTNESS Verified 11/17/17 10:22 OF BREATH - Medications Medications: Current Medications Albuterol Sulfate (Albuterol 0.083% Inhal Jil (2.5 Mg/3 Ml) Ud) 2.5 mg IH [id number] PRN PRN Reason: Shortness of Breath Aspirin (Ecotrin) 81 mg PO DAILY [facility] Budesonide (Pulmicort Respules) 0.5 mg INH [id number] [facility] Last Admin: 02/23/18 20:47 Dose: 0.5 mg Docusate Sodium (Colace) 100 mg PO Q8 PRN PRN Reason: Constipation Sodium Chloride (Sodium Chloride 0.9%) 1,000 mls @ 50 mls/hr IV .Q20H [facility] Last Admin: 02/23/18 16:05 Dose: 50 mls/hr Ceftriaxone Sodium (Rocephin 1 Gram Ivpb) 1 gm in 100 mls @ 100 mls/hr IVPB DAILY [facility] PRN Reason: Protocol Meclizine HCl (Antivert) 12.5 mg PO DAILY [facility] Methylprednisolone (Solu-Medrol) 40 mg IVP Q12 [facility] Last Admin: 02/23/18 22:28 Dose: 40 mg Pantoprazole Sodium (Protonix Ec Tab) 40 mg PO ACB [facility]AK[facility] Tramadol HCl (Ultram) 50 mg PO DAILY [facility] Physical Exam - Constitutional Appears: Cachectic - Head Exam Head Exam: NORMAL INSPECTION - Eye Exam Eye Exam: Normal appearance Pupil Exam: NORMAL ACCOMODATION - ENT Exam ENT Exam: Mucous Membranes Moist, Normal Exam - Respiratory Exam Respiratory Exam: Rhonchi Additional comments: on NC 3 l/min - Cardiovascular Exam Cardiovascular Exam: REGULAR RHYTHM, +S1, +S2 - GI/Abdominal Exam GI & Abdominal Exam: Normal Bowel Sounds, Soft - Neurological Exam Neurological exam: Alert - Skin Skin Exam: Dry, Intact, Normal Color, Warm Results - Vital Signs Recent Vital Signs: Last Vital Signs Temp 97.5 F L 02/24/18 05:53 Pulse 68 02/24/18 05:53 Resp 20 02/24/18 05:53 BP 109/61 02/24/18 05:53 Pulse Ox 94 L 02/24/18 05:53 - Labs Result Diagrams: 02/24/18 06:30 02/24/18 06:30 Labs: Laboratory Results - last 24 hr 02/23/18 02/23/18 02/24/18 19:21 19:21 06:30 WBC 6.1 D RBC 4.05 Hgb 11.8 L D Hct 35.7 L MCV 88.1 MCH 29.1 MCHC 33.1 RDW 14.1 Plt Count 200 MPV 11.0 Sodium Potassium Chloride Carbon Dioxide Anion Gap BUN Creatinine Est GFR ( Amer) Est GFR (Non-Af Amer) Random Glucose Calcium Iron 19 L TIBC 282 % Saturation 7 L NT-Pro-B Natriuret Pep Triglycerides 65 Cholesterol 148 LDL Cholesterol Direct 75 HDL Cholesterol 44 TSH 3rd Generation Urine Color Urine Appearance Urine pH Ur Specific [place] Urine Protein Urine Glucose (UA) Urine Ketones Urine Blood Urine Nitrate Urine Bilirubin Urine Urobilinogen Ur Leukocyte Esterase 02/24/18 02/24/18 02/24/18 06:30 06:30 06:40 WBC RBC Hgb Hct MCV MCH MCHC RDW Plt Count MPV Sodium 135 Potassium 3.8 Chloride 99 Carbon Dioxide 29 Anion Gap 10 BUN 12 Creatinine 0.5 L Est GFR ( Amer) > 60 Est GFR (Non-Af Amer) > 60 Random Glucose 125 H Calcium 8.3 L Iron TIBC % Saturation NT-Pro-B Natriuret Pep 663 H Triglycerides Cholesterol LDL Cholesterol Direct HDL Cholesterol TSH 3rd Generation 1.06 Urine Color Yellow Urine Appearance Clear Urine pH 6.0 Ur Specific [place] 1.015 Urine Protein Negative Urine Glucose (UA) Negative Urine Ketones Trace H Urine Blood Negative Urine Nitrate Negative Urine Bilirubin Negative Urine Urobilinogen 0.2 Ur Leukocyte Esterase Negative Assessment & Plan - Assessment and Plan (Free Text) Assessment: IMPRESSION: A 87 year old female who came in to the ER due to worsening shortness of breath. History of COPD on oxygen at home. Shortness of breath most likely due to exacerbation of COPD, on NC 3 l/min. History of hypertension , renal insufficiency, shingles 2013,cataract, glaucoma, Plan: Will order Troponin level ECHO done last October 2017 showed normal LV function, moderate pulmonary hypertension, RV systolic function is mildly reduced Continue current medications Continue current treatment Will follow up Plan and treatment discussed with Dr. Riley Thank you for referring and letting us participate in the care of Kaitlin Altman. - Date & Time Date: 02/24/18 Time: 07:15
[2018-02-24] MEDS: Pantoprazole 40 mg EC Tab PO SCH (08:40)
[2018-02-24] MEDS: cefTRIAXone 1 gm 1 GM/100 ML BAG IVPB SCH (10:23)
[2018-02-24] MEDS: MethylPREDNISolone 40 mg Vial IVP SCH ×2 (10:23→21:04)
[2018-02-24 13:03] LABS: FOLATE > 20.0 ng/mL
--- NOTE | 2018-02-24 15:54 | PN ---
DATE: 02/24/2018 PULMONARY PROGRESS NOTE REFERRING PHYSICIAN: Nadira Clemente MD SUBJECTIVE: She is sitting up in the bed, having lunch. Night was unremarkable. Feels better. Decreased cough. Decreased shortness of breath. No nausea. No vomiting or diarrhea. No leg pain or leg swelling. OBJECTIVE: GENERAL: In no acute distress. VITAL SIGNS: Temperature is 98, heart rate is 80, respiratory rate is 18, blood pressure 98/51, and pulse ox 94% on nasal cannula. HEENT: Moist mucus membranes. Small oral cavity. Crowded airway. NECK: Supple. No JVD. LUNGS: Few crackles, scattered rhonchi. HEART: S1 and S2. ABDOMEN: Soft, nontender. No organomegaly. EXTREMITIES: No edema. NEUROLOGIC: Awake and alert. Follows simple commands. MEDICATIONS: She is on albuterol and Atrovent nebulizer every 6 hours p.r.n., Antivert 12.5 mg daily, Colace 100 mg every 8 hours p.r.n., Ecotrin 81 mg daily, Protonix 40 mg daily, Pulmicort inhaled twice a day, Rocephin 1 g IV daily, Solu-Medrol 40 mg every 12 hours, Ultram 50 mg daily. LABORATORY DATA: Shows hemoglobin 11.8, hematocrit 35.7, WBC 6.1, and platelet count is 200. Sodium 135, potassium 3.8, chloride 99, bicarbonate 29. BUN 12, creatinine 0.5. Glucose 125. Calcium is 8.3. Iron is 19. ProBNP is 663. Troponin less than 0. 01. TSH is 1.06. Microbiology: Blood culture, so far there is no growth. IMPRESSION AND PLAN: Chronic obstructive lung disease, interstitial infiltrate, cardiac diastolic dysfunction, pulmonary hypertension, encephalopathy, diabetes, hypertension, chronic constipation, history of urinary tract infection. Pulmonary point of view, doing okay. Continue IV inhaled bronchodilator. Keep head at 45 degree. Gastric prophylaxis. Sequential compression device to lower extremity. Aspiration precaution. Out of bed to chair. Thank you and we will follow with you. Erika Newby MD
[2018-02-24] MEDS ORDERED: guaiFENesin 100 mg/5 ml Syrup UD PO PRN (15:56)
--- NOTE | 2018-02-24 16:02 | CON ---
DATE: 02/24/2018 ADDENDUM Addendum to initial progress note dictated this morning by Ju Stevens APN REASON FOR ADDENDUM: Our nurse practitioner, Ju Stevens dictated this morning. Echo reviewed from the previous in 10/24/2017 does shows normal LV function, ejection fraction 65%, RVSP 53. It looks like the patient had exacerbation of COPD, bringing some phlegm. No evidence of acute NE. PLAN: We will add one more set of troponin. If the troponin is negative, we will discontinue telemetry. Continue aggressive treatment for COPD. We will also DC IV fluid, the patient is getting IV fluid. To prevent going into heart failure, we will DC IV fluid and continue aggressive treatment for COPD as mentioned by Dr. Clemente and Dr. Newby. We will follow with you. Thank you Dr. Clemente for providing me the opportunity in taking care of the patient, Kaitlin Altman. We will also add lipid profile, TSH, hemoglobin A1c and troponin for this morning and if troponin remains negative as mentioned, we will DC telemetry. Erika Riley MD
[2018-02-24] MEDS ORDERED: guaiFENesin 100 mg/5 ml Syrup UD PO SCH (18:00)
[2018-02-24] MEDS: guaiFENesin 100 mg/5 ml Syrup UD PO PRN (20:35)
[2018-02-25] MEDS: guaiFENesin 100 mg/5 ml Syrup UD PO PRN ×2 (06:05→09:47)
[2018-02-25 07:16] LABS: IRON 15 ug/dL (45-180)
[2018-02-25 07:26] LABS: % IRON SATURATION 6 % (20-55); TOTAL IRON BINDING CAPACITY 234 ug/dL (265-497)
[2018-02-25] MEDS: Budesonide 0.5 mg/2 ml Inhal Susp UD INH SCH ×2 (07:58→19:53)
[2018-02-25] MEDS: Pantoprazole 40 mg EC Tab PO SCH (08:49)
[2018-02-25] MEDS: MethylPREDNISolone 40 mg Vial IVP SCH ×2 (09:47→21:19)
[2018-02-25] MEDS: cefTRIAXone 1 gm 1 GM/100 ML BAG IVPB SCH (09:47)
--- NOTE | 2018-02-25 13:18 | CP.PCM.PN ---
Subjective - Date & Time of Evaluation Date of Evaluation: 02/25/18 Time of Evaluation: 07:45 - Subjective Subjective: Seen and examined by me and Dr. Riley Reason for consult: and follow up: Tachycardia, shortness of breath, A 87 year old female who came in to the ER due to worsening shortness of breath. COPD, history of diastolic dysfunction,pulmonary hypertension,encephalopathy,diabetes , hypertension, chronic constipation, Subjective: feels okay, looking better than yesterday, Objective - Vital Signs/Intake and Output Vital Signs (last 24 hours): Temp Pulse Resp BP Pulse Ox 98.3 F 80 18 108/65 97 02/25/18 06:00 02/25/18 06:00 02/25/18 06:00 02/25/18 06:00 02/25/18 06:00 Intake and Output: 02/25/18 02/25/18 06:59 18:59 Intake Total 540 Balance 540 - Medications Medications: Current Medications Albuterol Sulfate (Albuterol 0.083% Inhal Jil (2.5 Mg/3 Ml) Ud) 2.5 mg IH [id number] PRN PRN Reason: Shortness of Breath Aspirin (Ecotrin) 81 mg PO DAILY [facility] Last Admin: 02/25/18 09:47 Dose: 81 mg Budesonide (Pulmicort Respules) 0.5 mg INH [id number] [facility] Last Admin: 02/25/18 07:58 Dose: 0.5 mg Docusate Sodium (Colace) 100 mg PO Q8 PRN PRN Reason: Constipation Guaifenesin (Robitussin) 100 mg PO TID PRN PRN Reason: Cough Last Admin: 02/25/18 09:47 Dose: 100 mg Ceftriaxone Sodium (Rocephin 1 Gram Ivpb) 1 gm in 100 mls @ 100 mls/hr IVPB DAILY [facility] PRN Reason: Protocol Stop: 02/28/18 10:59 Last Admin: 02/25/18 09:47 Dose: 100 mls/hr Meclizine HCl (Antivert) 12.5 mg PO DAILY [facility] Last Admin: 02/25/18 09:47 Dose: 12.5 mg Methylprednisolone (Solu-Medrol) 40 mg IVP Q12 [facility] Last Admin: 02/25/18 09:47 Dose: 40 mg Pantoprazole Sodium (Protonix Ec Tab) 40 mg PO ACB [facility] Last Admin: 02/25/18 08:49 Dose: 40 mg Tramadol HCl (Ultram) 50 mg PO DAILY [facility] Last Admin: 02/25/18 09:47 Dose: Not Given - Labs Labs: 02/24/18 06:30 02/24/18 06:30 PT 13.5 SECONDS (9.4-12.5) H 02/23/18 12:35 INR 1.17 (0.93-1.08) H 02/23/18 12:35 APTT 30.8 Seconds (25.1-36.5) 02/23/18 12:35 - Constitutional Appears: No Acute Distress - ENT Exam ENT Exam: Mucous Membranes Moist, Normal Exam - Respiratory Exam Respiratory Exam: Decreased Breath Sounds, Rhonchi Additional comments: NC 2-3l/min Oxygen saturation 90's - Cardiovascular Exam Cardiovascular Exam: REGULAR RHYTHM, +S1, +S2 - GI/Abdominal Exam GI & Abdominal Exam: Soft, Normal Bowel Sounds - Extremities Exam Extremities Exam: Normal Capillary Refill - Neurological Exam Neurological Exam: Alert, Awake, Oriented x3 - Psychiatric Exam Psychiatric exam: Normal Affect, Normal Mood - Skin Skin Exam: Intact, Normal Color, Warm Assessment and Plan - Assessment and Plan (Free Text) Assessment: IMPRESSION: A 87 year old female who came in to the ER due to worsening shortness of breath. Tachycardia, shortness of breath, A 87 year old female who came in to the ER due to worsening shortness of breath. COPD, history of diastolic dysfunction,pulmonary hypertension,encephalopathy,diabetes, hypertension, chronic constipation, Plan: Exacerbation of COPD Dr. Newby on consult Troponin negative, discontinued telemetry Continue current treatment Continue current medications Looks and feels better than yesterday, less mucous expectorated Will follow up Plan and treatment discussed with Dr. Riley
[2018-02-25 13:40] LABS: FOLATE 15.9 ng/mL
--- NOTE | 2018-02-25 15:05 | HP ---
The patient was seen and examined on bedside on 02/24/2018. CHIEF COMPLAINT: Shortness of breath, very fatigued and tired. HISTORY OF PRESENT ILLNESS: Ms. Kaitlin Altman is an 87-year-old female with past medical history of asthma, came to the Emergency Department accompanied by homemaker and nephew complaining of worsening shortness of breath over the past 3 days. The patient had a family , speaks Palauan. Palauan history obtained from the patient's nephew. The patient was recently diagnosed with flu productive cough and chest congestion. Homemaker denies hematuria or hematochezia. No abdominal pain, no chest pain. Appetite is not great. The patient was seen actually in my office with worsening shortness of breath, feeling very fatigued and tired. send the patient to the hospital. PAST MEDICAL HISTORY: COPD, hypertension, history of cataract, glaucoma, renal insufficiency, shingles, GERD, dyspepsia, urinary incontinence, appendectomy, cholecystectomy. FAMILY HISTORY: Father and mother, noncontributory. HABITS: Never smoked, no drugs, no ethanol. ALLERGIES: THE PATIENT IS ALLERGIC WITH ACYCLOVIR. HOME MEDICATIONS: Flexeril , docusate, magnesium oxide, Motrin, Antivert, nitrofurantoin, tramadol. REVIEW OF SYSTEMS: The patient seen and examined on the bedside, looking comfortable. No nausea, vomiting, or diarrhea. No hematuria or hematochezia. Shortness of breath is getting better, getting physical therapy. No change in the status, feels better, decreased cough, acute shortness of breath. No fever, chill, nausea, vomiting or diarrhea. PHYSICAL EXAMINATION VITAL SIGNS: Temperature 98, heart rate 80, respiratory rate 18, blood pressure 98/51, pulse ox 94% on nasal cannula. HEENT: Head: Normocephalic, atraumatic. Eyes: PERRLA. Extraocular muscles intact. Conjunctivae clear. Nose patent. Mucous membranes moist. NECK: Supple. No carotid bruit. No JVD or thyromegaly. CHEST: Bilaterally symmetrical. HEART: S1, S2 positive. LUNGS: A few crackles, scattered rhonchi. ABDOMEN: Soft. Bowel sounds present. No organomegaly. EXTREMITIES: No edema. No cyanosis. NEUROLOGICAL: Patient is awake and alert. Follows simple commands. MEDICATIONS: Atrovent, Antivert, Colace, Ecotrin, Protonix. LABORATORY DATA: Hemoglobin 11.8, hematocrit 35.7, white blood cells 6.1, platelets 200. Sodium 135, potassium 3.8, BUN 12, creatinine 0.5, glucose 125. ASSESSMENT AND PLAN: Ms. Kaitlin Altman is an 87-year-old lady, came with exacerbation of chronic obstructive pulmonary disease, interstitial infiltrates, cardiac diastolic dysfunction, pulmonary hypertension, encephalopathy, diabetes mellitus, hypertension, chronic constipation, history of urinary tract infection. Pulmonary point of view, the patient is doing well as per Dr. Newby. Plan is to continue present treatment, gastrointestinal and deep venous thrombosis prophylaxis. Repeat labs. We will follow. Nadira Clemente MD MTDD
[2018-02-25] MEDS ORDERED: Potassium Chloride 20 mEq ER Tab PO ONE (15:22)
--- NOTE | 2018-02-25 23:36 | PN ---
DATE: SUBJECTIVE: The patient is 87-year-old female. The patient is seen and examined on the bedside, looking comfortable. Shortness of breath is better, but still coughing, a little bit better. No nausea or vomiting. Having lunch. Tolerating food very well. No headache. No dizziness. Looking better than as compared to yesterday. PHYSICAL EXAMINATION: VITAL SIGNS: Temperature 98.3, pulse 50, respiratory rate 18, blood pressure 105/55, pulse oximetry of 97. HEENT: Head normocephalic, atraumatic. Eyes PERRLA. Extraocular muscles intact. Conjunctivae clear. Nose patent. Mucous membrane moist. NECK: Supple. No carotid bruit. No JVD or thyromegaly. CHEST: Bilaterally symmetrical. HEART: S1 and S2 positive. LUNGS: Clear to auscultation. ABDOMEN: Soft. Bowel sounds positive. No organomegaly. EXTREMITIES: No edema. No cyanosis. NEUROLOGICAL: The patient is awake and alert. Moving all 4 extremities. No focal deficits. LABORATORY DATA: White blood cells 6.1, hemoglobin 11.8, hematocrit 35.7, platelets 200. Sodium 135, potassium 3.8, BUN 12, creatinine 0.5, glucose 125. MEDICATIONS: Albuterol, Ecotrin, Pulmicort, Colace, Robitussin, Rocephin, Antivert, Solu-Medrol, Protonix, Tramadol. ASSESSMENT AND PLAN: Ms. Kaitlin Altman, 87-year-old female with anemia, hyperglycemia. Came in to emergency room with worsening of shortness of breath, tachycardia. Now, shortness of breath is better. The patient has history of chronic obstructive pulmonary disease, history of diastolic dysfunction, pulmonary hypertension, encephalopathy, chronic constipation. Dr. Newby is on the case for exacerbation of chronic obstructive pulmonary disease. Senior Qa Analyst is on the case for tachycardia. Troponin is negative, so bonding agent discontinued the telemetry. Continue current medications. I reviewed bonding agent's notes. Reviewed wheel aligner's notes also. The patient has interstitial infiltrates as per Brick Sorter. History of urinary retention. Continue IV and inhaled bronchodilators. Gastric prophylaxis. Sequential compression devices to lower extremity. Aspiration precautions. We will try to send the patient to Transitional Care Unit. Gastrointestinal and deep venous thrombosis prophylaxis. Repeat labs. We will follow up. Nadira Clemente MD [facility] # [id number]
[2018-02-26] MEDS: guaiFENesin 100 mg/5 ml Syrup UD PO PRN ×2 (02:01→19:42)
--- NOTE | 2018-02-26 04:35 | PN ---
DATE: 02/25/2018 PULMONARY PROGRESS NOTE REFERRING PHYSICIAN: Dr. Clemente. SUBJECTIVE: Patient is lying in the bed, head at 45 degrees. Night was unremarkable. Feels better. Decreased cough. Decreased shortness of breath. No nausea. No vomiting or diarrhea. No leg pain or leg swelling. OBJECTIVE: GENERAL: In no acute distress. VITAL SIGNS: Temperature is 98, heart rate is 86, respiratory rate is 18, blood pressure 107/60, pulse ox 98% on nasal cannula. HEENT: Moist mucous membrane. Crowded airway. NECK: Supple. No JVD. LUNGS: Have a few crackles, scattered rhonchi. HEART: S1 and S2. ABDOMEN: Soft, nontender. No organomegaly. EXTREMITIES: No edema. NEUROLOGICAL: Awake, alert. Follows simple command. MEDICATIONS: She is on albuterol and Atrovent nebulizer every 6 hours p.r.n., meclizine 12.5 mg daily, Colace 100 mg every 8 hours, Ecotrin 81 mg daily, Protonix 40 mg daily, Pulmicort inhaled twice a day, Robitussin 100 mg three times a day, Rocephin 1 g IV daily, Solu-Medrol 40 mg every 12 hours, Ultram 50 mg daily. LABORATORY DATA: Shows hemoglobin A1c 5.9, iron is 15, troponin 0.01, cholesterol 134, procalcitonin 0.05, B12 or folate is normal. Microbiology: Blood culture and throat culture is unremarkable. IMPRESSION AND PLAN: Chronic obstructive lung disease, interstitial infiltrate, cardiac diastolic dysfunction, pulmonary hypertension, encephalopathy, diabetes, hypertension, chronic constipation, anemia, has a low iron, no ferritin available, we will order one. Continue antibiotics. Keep head at 45 degree. Bronchodilator. Gastric prophylaxis. Sequential compression device to lower extremity. Fall precaution. Aspiration precaution. Thank you and we will follow with you. Erika Newby MD
[2018-02-26 07:13] LABS: MEAN CELL VOLUME 88.1 fl (80.0-105.0); MEAN CORPUSCULAR HEMOGLOBIN 28.8 pg (25.0-35.0); MEAN CORPUSCULAR HGB CONC 32.6 g/dl (31.0-37.0); MEAN PLATELET VOLUME 11.1 fl (7.0-11.0); RBC 4.8 10^6/uL (3.5-6.1); WHITE BLOOD COUNT 8.5 10^3/ul (4.5-11.0)
[2018-02-26] MEDS: Budesonide 0.5 mg/2 ml Inhal Susp UD INH SCH ×2 (07:22→21:10)
[2018-02-26 07:25] LABS: HEMOGLOBIN 13.8 g/dL (12.0-16.0)
[2018-02-26 07:32] LABS: BLOOD UREA NITROGEN 18 mg/dL (7-21); GFR AFRICAN-AMERICAN > 60; GFR NON-AFRICAN AMERICAN > 60
[2018-02-26] MEDS: Pantoprazole 40 mg EC Tab PO SCH (08:45)
[2018-02-26] MEDS: cefTRIAXone 1 gm 1 GM/100 ML BAG IVPB SCH (09:48)
[2018-02-26] MEDS ORDERED: Iron Sucrose 100 mg/5 ml Inj IVP SCH (10:00)
--- NOTE | 2018-02-26 11:17 | RAD ---
HISTORY: COMPARISON: 02/23/2018. TECHNIQUE: Chest PA and lateral FINDINGS: LINES AND TUBES: None. LUNG AND PLEURA: There are persistent low lung volumes and diffuse interstitial thickening. No focal consolidation. No pleural effusion or pneumothorax. HEART AND MEDIASTINUM: The heart is not enlarged. The hilar and mediastinal contours are within normal limits. SKELETAL STRUCTURES: The bony structures are stable and within normal limits for the patient's age. VISUALIZED UPPER ABDOMEN: Normal. OTHER FINDINGS: None. IMPRESSION: Findings are most compatible with chronic interstitial fibrosis. No active pulmonary disease.
[2018-02-26] MEDS: MethylPREDNISolone 40 mg Vial IVP SCH ×2 (11:32→21:07)
[2018-02-26] MEDS: Cefpodoxime (Vantin) 200 mg Tab PO SCH ×2 (11:32→21:07)
[2018-02-26] MEDS: Albuterol 0.083% Inhal Sol (2.5 mg/3 mL) UD IH PRN (21:10)
--- NOTE | 2018-02-26 22:30 | PN ---
DATE: REASON FOR THE CONSULTATION: Shortness of breath, COPD exacerbation, rule out CHF. SUBJECTIVE: The patient denies any chest pain. Still complaining of mild shortness of breath. PHYSICAL EXAMINATION: VITAL SIGNS: Temperature afebrile, heart rate 99, blood pressure 101/62. HEENT: PERRLA. Extraocular muscles intact. NECK: Supple. No carotid bruit. No JVD or thyromegaly. CHEST: Clear to auscultation. HEART: S1 and S2 regular. ABDOMEN: Soft. EXTREMITIES: Clubbing and cyanosis negative. LABORATORY DATA: Blood workup as follows: WBC 8.5, hemoglobin 13.8, hematocrit 42.3, platelet count 276. Chemistry shows sodium 130, potassium 4.6, chloride 95, carbon dioxide 30, anion gap of 14, BUN and creatinine 0.6. IMPRESSION: Chronic obstructive pulmonary disease exacerbation; sinus tachycardia, improved; hypertension; diabetes; encephalopathic, so far noted some acute myocardial infarction. Patient had an echocardiogram on 10/24/2017 that shows normal LV function, ejection fraction , right ventricle systolic pressure of 53. No evidence of acute myocardial infarction. RECOMMENDATION: Continue aggressive treatment for COPD. Continue meclizine for dizziness. Continue gentle diuretics, change to p.o. Lasix. Continue antibiotics. CVS status is stable. We will put on 20 mg of Lasix from tomorrow. Monitor electrolytes. We will follow with you. Thank you, Dr. Clemente, for providing us the opportunity in taking care of the patient, Kaitlin Altman. Erika Riley MD
--- NOTE | 2018-02-27 00:11 | PN ---
DATE: 02/26/2018 PULMONARY PROGRESS NOTE REFERRING PHYSICIAN: Nadira Clemente MD. SUBJECTIVE: The patient is sitting up in the bed. Night was unremarkable. Feels slowly better. Decreased cough. Decreased shortness of breath. No nausea. No vomiting, diarrhea, leg pain, leg swelling. OBJECTIVE: GENERAL: In no acute distress. VITAL SIGNS: Temperature is 98, heart rate is 99, respiratory rate is 20, blood pressure 101/62, pulse ox 96% on 2 liters nasal cannula. HEENT: Moist mucous membrane. Crowded airway. NECK: Supple. No JVD. LUNGS: Have a fair airflow with rhonchi and some crackles at the bases. HEART: S1 and S2. ABDOMEN: Soft, nontender. No organomegaly. EXTREMITIES: No edema. NEUROLOGICAL: Awake, alert. Follows simple command. MEDICATIONS: She is on albuterol, Atrovent nebulizer every 6 hours p.r.n., Antivert 12.5 mg daily, Colace 100 mg every 8 hours p.r.n, Ecotrin 81 mg daily, IV iron sucrose 100 mg daily, Lasix 20 mg daily, Protonix 40 mg a.c.b., Pulmicort inhaled twice a day, Robitussin 100 mg three times a day p.r.n., Solu-Medrol 20 mg every 12 hours, Ultram 50 mg daily, Vantin 200 mg every 12 hours, vitamin B12 of 1000 mcg IM daily. LABORATORY DATA: Shows hemoglobin 13.8, hematocrit 42.3, WBC 8.5, and platelets is 276. Sodium 139, potassium 4.6, chloride 95, bicarbonate 34, BUN 18, creatinine 0.6, glucose is 117, calcium is 9, phosphorus 4.4, magnesium 1.9. TSH 2.05. Microbiology: Blood culture and throat culture, there is no growth. Chest x-ray was done today, which shows chronic interstitial fibrosis. IMPRESSION AND PLAN: Chronic obstructive lung disease, interstitial infiltrates, cardiac diastolic dysfunction, pulmonary hypertension, encephalopathy, diabetes, hypertension, chronic constipation, anemia, iron deficiency. Pulmonary point of view, doing okay.. We will continue IV and inhaled bronchodilator. Continue antibiotics. Gastric prophylaxis. Fall precaution. Out of bed to chair if possible. Thank you and we will follow with you. Erika Newby MD
--- NOTE | 2018-02-27 01:28 | PN ---
DATE: SUBJECTIVE: Patient is an 87-year-old female. Patient is seen and examined on the bedside, looking comfortable, looks little bit sad because she is alone in her room and she want some roommate. for me. Feeling better. No chest pain, no palpitation. No hematuria, no hematochezia. No headache, no dizziness. No fever, no chills. PHYSICAL EXAMINATION: VITAL SIGNS: Temperature 97.5, pulse 99, blood pressure 101/62, respiratory rate 20. HEENT: Head: Normocephalic, atraumatic. Eyes: PERRLA. Extraocular muscles intact. Conjunctivae clear. Nose: Patent. Mucous membrane moist. NECK: Supple. No carotid bruit. No JVD or thyromegaly. CHEST: Bilaterally symmetrical. HEART: S1 and S2 positive. LUNGS: Clear to auscultation. ABDOMEN: Soft. Bowel sounds positive. No organomegaly. EXTREMITIES: No edema. No cyanosis. NEUROLOGICAL: Patient is awake and alert. Moving all 4 extremities. No focal deficits. MEDICATIONS: Antivert, Colace, Ecotrin, iron, Lasix, Protonix, Pulmicort, Solu-Medrol, tramadol, Vantin, B12. LABORATORY DATA: White blood cells 8.5, hemoglobin 13.8, hematocrit 42.3, platelets 276. Sodium 139, potassium 4.6, BUN 18, creatinine 0.6, glucose 117. ASSESSMENT AND PLAN: Ms. Kaitlin Altman is an 87-year-old lady with history of anemia, improved; hypochloremia; hyperglycemia, iron deficiency, chronic obstructive lung disease, interstitial infiltrates, cardiac diastolic dysfunction, pulmonary hypertension, encephalopathy, hypertension, diabetes mellitus, chronic constipation. Continue antibiotics, bronchodilators, gastric prophylaxis, sequential compression devices to the lower extremity. Fall precautions. Aspiration precautions. Gastrointestinal and deep venous thrombosis prophylaxis. Repeat labs. Discussion done with nursing staff. We will discuss with the patient's son also. We will follow up. Nadira Clemente MD MTDJam
[2018-02-27] MEDS: Pantoprazole 40 mg EC Tab PO SCH (08:00)
[2018-02-27] MEDS: Budesonide 0.5 mg/2 ml Inhal Susp UD INH SCH ×2 (08:21→19:22)
[2018-02-27] MEDS: MethylPREDNISolone 40 mg Vial IVP SCH ×2 (09:33→22:08)
[2018-02-27] MEDS: Cefpodoxime (Vantin) 200 mg Tab PO SCH ×2 (10:02→23:46)
--- NOTE | 2018-02-27 12:19 | PN ---
DATE: 02/26/2018 PULMONARY PROGRESS NOTE REFERRING PHYSICIAN: Dr. Clemente. SUBJECTIVE: She is out of bed to chair. Night was unremarkable. Feels better. Decreased cough. Decreased shortness of breath. No nausea, no vomiting, diarrhea, leg pain or leg swelling. OBJECTIVE: GENERAL: In no acute distress. VITAL SIGNS: Temp is 98, heart rate is 80, respiratory rate is 20, blood pressure 102/62, pulse ox 96% on 3 liters nasal cannula. HEENT: Small oral cavity. Crowded airway. NECK: Supple. No JVD. LUNGS: Have crackles with scattered rhonchi. HEART: S1 and S2. ABDOMEN: Soft, nontender. No organomegaly. EXTREMITIES: No edema. NEUROLOGIC: Awake, alert. Follows simple command. MEDICATIONS: She is on albuterol, Atrovent nebulizer every 6 hours p.r.n., Antivert 12.5 mg daily, Colace 100 mg every 8 hours p.r.n, Ecotrin 81 mg daily, iron sucrose 100 mg daily, also Lasix 20 mg daily, Protonix 40 mg a.c.b., Pulmicort inhaled twice a day, Robitussin p.r.n. basis, Solu-Medrol 20 mg every 12 hours, Ultram 50 mg daily, Vantin 200 mg every 12 hours, vitamin B12 of 1000 mcg daily. LABORATORY DATA: Reviewed. No new lab is available since yesterday. Microbiology: Blood cultures and throat cultures, there is no growth. IMPRESSION AND PLAN: Exacerbation of chronic obstructive lung disease, has interstitial infiltrates and fibrosis, cardiac diastolic dysfunction, pulmonary hypertension, encephalopathy, diabetes, hypertension, chronic constipation, anemia. Pulmonary point of view, doing okay. Continue bronchodilators, keep head at 45 degrees, gastric prophylaxis, deep venous thrombosis prophylaxis, fall precaution, aspiration precaution, start therapy. Thank you and we will follow with you. Erika Newby MD
[2018-02-27] MEDS: guaiFENesin 100 mg/5 ml Syrup UD PO PRN (17:07)
[2018-02-27] MEDS: Albuterol 0.083% Inhal Sol (2.5 mg/3 mL) UD IH PRN (19:22)
[2018-02-28] MEDS: Albuterol 0.083% Inhal Sol (2.5 mg/3 mL) UD IH PRN ×2 (07:12→18:53)
[2018-02-28] MEDS: Budesonide 0.5 mg/2 ml Inhal Susp UD INH SCH ×3 (07:12→18:55)
[2018-02-28] MEDS: Pantoprazole 40 mg EC Tab PO SCH (08:17)
[2018-02-28] MEDS: MethylPREDNISolone 40 mg Vial IVP SCH ×2 (10:18→21:12)
[2018-02-28] MEDS: Cefpodoxime (Vantin) 200 mg Tab PO SCH (10:20)
[2018-02-28] MEDS: guaiFENesin 100 mg/5 ml Syrup UD PO PRN ×2 (14:53→21:12)
--- NOTE | 2018-02-28 22:47 | PN ---
DATE: 02/28/2018 PULMONARY PROGRESS NOTE REFERRING PHYSICIAN: Nadira Clemente MD. SUBJECTIVE: The patient is sitting up inside of the bed. Night was unremarkable. Feels better. Decreased cough. Decreased shortness of breath. No nausea, no vomiting, diarrhea, leg pain or leg swelling. OBJECTIVE: GENERAL: In no acute distress. VITAL SIGNS: Temp is 98, heart rate is 73, respiratory rate is 18, blood pressure 117/67, pulse ox 96% on 2 liter nasal cannula. HEENT: Moist mucous membrane. Crowded airway. NECK: Supple. No JVD. LUNGS: Have bilateral crackles. HEART: S1 and S2. ABDOMEN: Soft, nontender. No organomegaly. EXTREMITIES: No edema. NEUROLOGIC: Awake, alert. Follows simple command. MEDICATIONS: She is on albuterol/Atrovent nebulizer every 6 hours p.r.n., Antivert 12.5 mg daily, Colace 100 mg every 8 hours p.r.n., Ecotrin 81 mg daily, iron sucrose 100 mg daily, Lasix 20 mg daily, Protonix 40 mg daily, Pulmicort inhaled twice a day, Robitussin 100 mg three times a day p.r.n., Solu-Medrol 10 mg twice a day, Tylenol p.r.n., Ultram 50 mg daily, Vantin B12 1000 mcg IM daily. LABORATORY DATA: Reviewed and noted. No new lab is available since yesterday. Microbiology: Blood culture has been negative. IMPRESSION AND PLAN: Exacerbation of chronic obstructive lung disease, interstitial infiltrate, pulmonary fibrosis, cardiac diastolic dysfunction, pulmonary hypertension, encephalopathy, diabetes, hypertension, chronic constipation, anemia. Pulmonary point of view, doing okay. Continue IV and inhaled bronchodilators. Aspiration precaution, fall precaution. Gastric prophylaxis, deep venous thrombosis prophylaxis. Thank you and we will follow with you. Erika Newby MD
[2018-03-01] MEDS: Albuterol 0.083% Inhal Sol (2.5 mg/3 mL) UD IH PRN (07:07)
[2018-03-01] MEDS: Budesonide 0.5 mg/2 ml Inhal Susp UD INH SCH ×2 (07:07→19:39)
[2018-03-01] MEDS: Pantoprazole 40 mg EC Tab PO SCH (08:22)
--- NOTE | 2018-03-01 09:54 | PN ---
DATE: 02/28/2018 SUBJECTIVE: The patient is seen and examined on the bedside. Looking comfortable. No nausea, vomiting, diarrhea. No hematuria or hematochezia. No swelling of the legs. No chest pain. No palpitation. No headache, dizziness. Son was sitting on the bedside also. Still coughing with shortness of breath, but less. MEDICATIONS: Albuterol/Atrovent, Colace, Ecotrin, iron, Lasix, Protonix, Pulmicort, Robitussin, Solu-Medrol, Tramadol, Vantin, vitamin B12. LABORATORY DATA: We do not have recent labs today, but I reviewed old labs. ASSESSMENT AND PLAN: Ms. Kaitlin Altman, 79-year-old lady, seen by me on 02/17/2018, did progress note for 02/17/2018. Came with exacerbation of chronic obstructive lung disease, has interstitial infiltrates and fibrosis causing diastolic dysfunction, pulmonary hypertension, encephalopathy, diabetes mellitus, hypertension, chronic constipation, anemia. Pulmonary point of view, the patient is doing good, getting bronchodilators. Gastric and deep venous thrombosis prophylaxis. Son was sitting on the bedside also. Length of time discussion done. Education done. Permission is given to the patient to go to see her who is in the telemetry. We will follow up. Nadira Clemente MD MTDD
[2018-03-01] MEDS: MethylPREDNISolone 40 mg Vial IVP SCH (10:12)
[2018-03-01] MEDS ORDERED: MethylPREDNISolone 40 mg Vial IVP SCH (10:22)
--- NOTE | 2018-03-01 14:40 | PN ---
DATE: 02/28/2018 SUBJECTIVE: The patient was seen and examined on the bedside. Son was sitting on the bedside also, feeling better. No nausea, vomiting, or diarrhea. No hematuria or hematochezia. No swelling of the legs. No chest pain, no palpitations. No headache, no dizziness. PHYSICAL EXAMINATION: VITAL SIGNS: Temperature 98, heart rate 73, respiratory rate 18, blood pressure 120/60, pulse oximeter 96% on room air on 2 liters nasal cannula. HEENT: Head: Normocephalic, atraumatic. Eyes: PERRLA. Pupils intact. Conjunctivae clear. Nose patent. Mucous membrane moist. NECK: Supple. No carotid bruits or thyromegaly. CHEST: Bilaterally symmetrical. HEART: S1 and S2 positive. LUNGS: Clear to auscultation. ABDOMEN: Soft. Bowel sounds positive. No organomegaly. EXTREMITIES: No edema, no cyanosis. NEUROLOGICAL: The patient is awake, alert, moving all 4 extremities. No focal deficit. MEDICATIONS: Albuterol, Ativan, Colace, Ecotrin, iron, Lasix, Protonix, Pulmicort, Robitussin, Solu-Medrol, Tylenol, tramadol. LABORATORY DATA: We do not have labs today, but reviewed old labs. ASSESSMENT AND PLAN: Ms. Kaitlin Altman is an 87-year-old lady with multiple medical problems who came with exacerbation of chronic obstructive pulmonary disease, interstitial infiltrates, pulmonary fibrosis, cardiovascular dysfunction, pulmonary hypertension, encephalopathy, diabetes mellitus, hypertension, chronic constipation, anemia. Plan is continue inhaled and IV bronchodilators, aspiration precautions, tapering dose of steroids. Length of time discussion done with the patient's son, he wants mother to go to rehab because he is not able to take care of her right now. The patient is not able to do her ADL, getting dyspneic when going to bathroom. We will try to [facility] , because that is near the patient's family home. GI and DVT prophylaxis. Repeat labs, we will follow up. Nadira Clemente MD MTDJam
--- NOTE | 2018-03-01 17:47 | PN ---
DATE: 03/01/2018 REASON FOR CONSULTATION: Shortness of breath, COPD exacerbation, rule out CHF. SUBJECTIVE: The patient denies any chest pain, shortness of breath, or any palpitation. The patient is lying flat on the bed, not in apparent distress. PHYSICAL EXAMINATION: VITAL SIGNS: As follows, temperature afebrile, heart rate 82, blood pressure 140/80. HEENT: PERRLA. Extraocular muscles intact. NECK: Supple. No carotid bruit or thyromegaly. CHEST: Clear to auscultation. HEART: S1 and S2 regular. ABDOMEN: Soft. EXTREMITIES: Clubbing and cyanosis, negative. LABORATORY DATA: Blood workup as follows: WBC 8.5, hemoglobin 13.8, hematocrit 42.3, platelet count 276. Chemistry shows sodium 139, potassium 4.6, chloride 95, carbon dioxide 34, anion gap of 14, BUN 18, creatinine 0.6. Calcium 9, phosphorus 4.4, magnesium 1.9. IMPRESSION: Acute exacerbation of chronic obstructive pulmonary disease, interstitial infiltrate, pulmonary fibrosis, admitted with dizziness, stable on meclizine. The patient had an echo on 10/24/2017 that shows normal left ventricular function, ejection fraction of 65%, right ventricle systolic pressure of 65. RECOMMENDATION: Aggressive treatment for COPD. Antibiotic as per Pulmonary. Continue meclizine for dizziness. Continue gentle diuretics. increase oxygenation. We will follow with you. CVS status is stable. We will repeat the blood workup in the morning. Erika Riley MD
[2018-03-01] MEDS: guaiFENesin 100 mg/5 ml Syrup UD PO PRN (21:16)
--- NOTE | 2018-03-02 00:33 | PN ---
DATE: SUBJECTIVE: The patient is seen and examined on the bedside, looking comfortable. No nausea, vomiting, diarrhea. No hematuria or hematochezia. No swelling of the leg. No chest pain. No palpitation. No headache. No dizziness. No shortness of breath or palpitation. The patient is resting comfortably, do not look like in any distress. Son was sitting on the bedside also. Length of time discussion done with the son All questions answered. PHYSICAL EXAMINATION: VITAL SIGNS: Temperature 98.6, pulse 80, blood pressure 140/89, respiratory rate 18. HEENT: Head normocephalic, atraumatic. Eyes PERRLA. Extraocular muscles intact. Conjunctivae clear. Nose patent. NECK: Supple. No carotid bruit. No JVD or thyromegaly. CHEST: Bilaterally symmetrical. HEART: S1 and S2 positive. LUNGS: Clear to auscultation. ABDOMEN: Soft. Bowel sounds positive. No organomegaly. EXTREMITIES: No edema. No cyanosis. NEUROLOGICAL: The patient is awake and alert. Moving all 4 extremities. No focal deficits. LABORATORY DATA: White blood cells 8.9, hemoglobin 13.8, hematocrit 42.3, platelets 276. Sodium 139, potassium 4.6, BUN 18, creatinine 0.6. ASSESSMENT AND PLAN: Ms. Kaitlin Altman, 87-year-old lady with acute exacerbation of chronic obstructive lung disease, interstitial infiltrates, pulmonary fibrosis, has dizziness, on meclizine. The patient has echocardiogram shows normal left ventricular function, ejection fraction 65%. Right ventricular systolic pressure 65. Dementia, deconditioned, is not able to do her activities of daily living, history of encephalopathy, hypertension, chronic constipation. Continue inhaled bronchodilator. Aspiration precaution, fall precautions. Getting physical therapy. Gastrointestinal/deep venous thrombosis prophylaxis. Repeat labs. We will follow up. Nadira Clemente MD
--- NOTE | 2018-03-02 02:39 | PN ---
DATE: 03/01/2018 PULMONARY PROGRESS NOTE REFERRING PHYSICIAN: Dr. Nadira Clemente. SUBJECTIVE: She is lying in the bed, head at 45 degrees. Night was unremarkable. No headache. No rhinitis. Shortness of breath has improved. No nausea. No dysuria. No leg pain or leg swelling. PHYSICAL EXAMINATION GENERAL: In no acute distress. VITAL SIGNS: Temperature is 98, heart rate 85, respiratory rate 18, blood pressure 118/70, pulse ox 96% on room air. HEENT: Moist mucous membrane. Small oral cavity. Crowded airway. NECK: Supple. No JVD. LUNGS: Has crackles . HEART: S1 and S2. ABDOMEN: Soft, nontender. No organomegaly. EXTREMITIES: No edema. NEUROLOGIC: Awake, alert, follow simple commands. MEDICATIONS: She is on albuterol/Atrovent nebulizer every 6 hours p.r.n., Antivert 12.5 mg daily, Colace 100 mg every 8 hours p.r.n., Ecotrin 81 mg daily, IV iron, Sucrose 100 mg daily, Lasix 20 mg daily, Protonix 40 mg a.c.b., Pulmicort inhaled twice a day, Robitussin 100 mg 3 times a day p.r.n., Solu-Medrol 5 mg every 12 hours, Tylenol p.r.n. basis, Ultram 50 mg daily, Vitamin B12 1000 mcg daily. LABORATORY DATA: Reviewed. No new labs available. Microbiology, blood culture, throat culture unremarkable. IMPRESSION AND PLAN: Exacerbation of chronic obstructive lung disease, interstitial infiltrate, pulmonary fibrosis, cardiovascular dysfunction, pulmonary hypertension, encephalopathy, diabetes, hypertension, chronic constipation, anemia. Pulmonary point of view, much improved. Discontinue Solu-Medrol, start prednisone 10 mg daily, continue inhaled bronchodilator. Fall precaution. Out of bed to chair. Physical therapy. Thank you and we will follow with you. Erika Newby MD
[2018-03-02 07:03] LABS: EOS # 0.2 (0.0-0.7); EOS % 1.9 % (1.5-5.0); GRAN # 6.17 (1.4-6.5); GRAN % 66.4 % (50.0-68.0); HEMOGLOBIN 12.4 g/dL (12.0-16.0); LYMPH # 1.8 (1.2-3.4); LYMPH % 19.7 % (22.0-35.0); MEAN CELL VOLUME 89.4 fl (80.0-105.0); MEAN CORPUSCULAR HEMOGLOBIN 29.1 pg (25.0-35.0); MEAN CORPUSCULAR HGB CONC 32.5 g/dl (31.0-37.0); MONO # 1.1 (0.1-0.6); RBC 4.26 10^6/uL (3.5-6.1); RED CELL DISTRIBUTION WIDTH 13.9 % (11.5-14.5); WHITE BLOOD COUNT 9.3 10^3/ul (4.5-11.0)
[2018-03-02 07:19] LABS: ALBUMIN 3.2 g/dL (3.0-4.8); ALT/SGPT 39 U/L (7-56); AST/SGOT 38 U/L (14-36); BLOOD UREA NITROGEN 17 mg/dL (7-21); CALCIUM 8.7 mg/dL (8.4-10.5); GFR AFRICAN-AMERICAN > 60; GFR NON-AFRICAN AMERICAN > 60
[2018-03-02] MEDS: Budesonide 0.5 mg/2 ml Inhal Susp UD INH SCH ×2 (07:26→21:20)
[2018-03-02] MEDS: Pantoprazole 40 mg EC Tab PO SCH (07:50)
[2018-03-02] MEDS: guaiFENesin 100 mg/5 ml Syrup UD PO PRN ×2 (10:26→22:20)
--- NOTE | 2018-03-02 12:33 | PN ---
DATE: REASON FOR THE CONSULTATION AND FOLLOWUP: Shortness of breath, COPD exacerbation, rule out CHF. SUBJECTIVE: The patient denies any chest pain, shortness of breath, or any palpitation, lying flat on the bed, not in apparent distress. PHYSICAL EXAMINATION: GENERAL: The patient is lying flat on the bed. VITAL SIGNS: As follows: Blood pressure 121/68. HEENT: PERRLA, intact. NECK: Supple. No carotid bruit or thyromegaly. CHEST: Clear to auscultation. HEART: S1 and S2 regular. ABDOMEN: Soft. EXTREMITIES: Clubbing and cyanosis, negative. LABORATORY DATA: Blood workup as follows: WBC 9.3 hemoglobin 12.4, hematocrit 38.1, platelet count 294. Chemistry shows sodium 137, potassium 4.4, chloride 96, carbon dioxide 36, anion gap of 10, BUN 17, creatinine 0.5. IMPRESSION: Acute exacerbation of chronic obstructive pulmonary disease, interstitial infiltrate, pulmonary fibrosis, admitted with dizziness, stable on meclizine. Last echo on 10/24/2017, shows normal left ventricular function, ejection fraction of 65%, right ventricle systolic pressure of 65 consistent with moderate pulmonary hypertension. RECOMMENDATION: Continue current treatment. No active cardiac symptoms at this time. Continue gentle diuretics. Continue baby aspirin. Continue meclizine p.r.n. We will follow with you. We will sign off and glad to follow p.r.n. Thank you, Dr. Clemente, for providing us the opportunity in taking care of the patient, Kaitlin Altman. Erika Riley MD
--- NOTE | 2018-03-03 04:04 | PN ---
DATE: 03/02/2018 PULMONARY PROGRESS NOTE REFERRING PHYSICIAN: Dr. Clemente. SUBJECTIVE: The patient is sitting up in a chair. Night was unremarkable. Feels much better. Family is at the bedside. No headaches. No rhinitis. Cough is better. No nausea. No vomiting or diarrhea. No leg pain or leg swelling. OBJECTIVE: GENERAL: In no acute distress. VITAL SIGNS: Temp is 98, heart rate is 96, respiratory rate is 18, blood pressure 105/61, pulse ox 100% on 2 L nasal cannula. HEENT: Moist mucous membrane. Crowded airway. Mallampati score is 4. NECK: Supple. No JVD. LUNGS: Have a few crackles at the base. HEART: S1 and S2. ABDOMEN: Soft, nontender. No organomegaly. EXTREMITIES: No edema. NEUROLOGIC: Awake, alert, follows simple command. MEDICATIONS: She is on DuoNeb every 6 hours p.r.n., Antivert 12.5 mg daily, Colace 100 mg every 8 hours, Ecotrin 81 mg daily, iron sucrose 100 mg daily, Lasix 20 mg daily, prednisone 10 mg daily, Protonix 40 mg daily, Pulmicort inhaled twice a day, Robitussin 100 mg three times a day, Tylenol p.r.n. basis, tramadol 50 mg daily, vitamin B12 of 1000 mcg IM daily. LABORATORY DATA: Shows hemoglobin 12.4, hematocrit 38.1, WBC 9.3, platelet count is 294. Sodium 137, potassium 4.4, chloride 96, bicarbonate 36, BUN 17, creatinine 7.5, glucose 102, phosphorus 3.5, magnesium 2. AST 38, ALT 39, alk phos is 63, albumin is 3.2. IMPRESSION AND PLAN: Exacerbation of chronic obstructive lung disease, interstitial infiltrate, pulmonary fibrosis, history of pulmonary hypertension, diastolic cardiac dysfunction, encephalopathy, diabetes, hypertension, chronic constipation, anemia, activities of daily living dysfunction. I spoke to nursing staff. Continue p.o. and inhaled bronchodilator, antibiotics. Followup precaution. She will benefit from therapy. Thank you and we will follow up with you. Erika Newby MD
[2018-03-03] MEDS: Budesonide 0.5 mg/2 ml Inhal Susp UD INH SCH ×2 (07:19→19:34)
[2018-03-03] MEDS: Pantoprazole 40 mg EC Tab PO SCH (07:31)
--- NOTE | 2018-03-03 11:36 | PN ---
DATE: 03/02/2018 SUBJECTIVE: The patient was seen and examined at the bedside, looking comfortable. Son was sitting at the bedside also. No nausea, vomiting or diarrhea. No hematuria or hematochezia. No swelling of the legs. No chest pain. No palpitations. No headache, no dizziness. PHYSICAL EXAMINATION: VITAL SIGNS: Temperature 98, heart rate 96, respiratory rate 18, blood pressure 105/60, pulse oximetry 100% on nasal cannula. HEENT: Head normocephalic, atraumatic. Eyes, PERRLA. Extraocular muscles intact. Conjunctivae clear. Nose patent. Mucous membrane moist. NECK: Supple. No carotid bruit. No JVD or thyromegaly. CHEST: Bilaterally symmetrical. HEART: S1 and S2 positive. LUNGS: Clear to auscultation. ABDOMEN: Soft. Bowel sounds positive. No organomegaly. EXTREMITIES: No edema. No cyanosis. NEUROLOGICAL: The patient is awake and alert. Moving all 4 extremities. No focal deficits. MEDICATIONS: DuoNeb, Antivert, Colace, Ecotrin, iron, Lasix, prednisone, Protonix, Robitussin, Tylenol, tramadol, B1. LABORATORY DATA: Echocardiogram shows ejection fraction of 54%. White blood cell is 9.3, hemoglobin 12.4, hematocrit 38.1, platelets 294. Sodium 137, potassium 4.4, BUN 17, creatinine 7.5, AST 38, ALT 39. ASSESSMENT AND PLAN: Ms. Kaitlin Altman is an 87-year-old lady with exacerbation of chronic obstructive lung disease, interstitial infiltrates, pulmonary fibrosis, history of pulmonary hypertension, diastolic cardiac dysfunction, encephalopathy, diabetes mellitus, hypertension, chronic constipation, anemia, has activities of daily living dysfunction. Discussion done with the patient's son. All questions answered. We will try to get rehab evaluation. Meanwhile, continue present treatment. Gastrointestinal and deep venous thrombosis prophylaxis. Repeat labs. Nadira Clemente MD
--- NOTE | 2018-03-03 15:32 | PN ---
DATE: 03/03/2018 PULMONARY PROGRESS NOTE REFERRING PHYSICIAN: Nadira Clemente MD. SUBJECTIVE: The patient is sitting up in a bed, night was unremarkable. Feels better. No headache. No rhinitis. No nausea. No dysuria. No leg pain or leg swelling. OBJECTIVE: GENERAL: In no acute distress. VITAL SIGNS: Temp is 98, heart rate is 85, respiratory rate is 18, blood pressure 103/64, pulse ox 94% on 3 L nasal cannula. HEENT: Small oral cavity. Crowded airway. NECK: Supple. No JVD. LUNGS: Have crackles. HEART: S1 and S2. ABDOMEN: Soft, nontender. No organomegaly. EXTREMITIES: No edema. NEUROLOGICAL: Awake and alert. Follows simple command. LABORATORY DATA: Reviewed, noted no new changes in laboratory data reported since yesterday. MEDICATIONS: She is on DuoNeb every 6 hours p.r.n., Antivert 12.5 mg daily, Colace 100 mg every 8 hours p.r.n., Ecotrin 81 mg daily, Lasix 20 mg daily, prednisone 10 mg daily, Protonix 40 mg before breakfast, Pulmicort inhaled twice a day, Robitussin 100 mg three times a day p.r.n., Tylenol p.r.n., Ultram 50 mg daily, vitamin B 12 of 1000 mcg IM daily. ASSESSMENT AND PLAN: Exacerbation of chronic obstructive lung disease, interstitial infiltrate, pulmonary fibrosis, history of pulmonary hypertension, cardiac diastolic dysfunction, encephalopathy, diabetes, hypertension, chronic constipation, anemia, history of renal insufficiency. Pulmonary point of view, doing okay. Taper off steroids in the next few days. Bronchodilator. Aspirations precaution. Fall precaution. Will benefit from rehab. Thank you and we will follow with you. Erika Newby MD
[2018-03-04] MEDS: Albuterol 0.083% Inhal Sol (2.5 mg/3 mL) UD IH PRN ×3 (07:49→19:44)
[2018-03-04] MEDS: Budesonide 0.5 mg/2 ml Inhal Susp UD INH SCH ×2 (07:49→19:44)
--- NOTE | 2018-03-04 11:17 | PN ---
DATE: 03/03/2018 SUBJECTIVE: The patient was seen and examined on bedside on 03/03/2018. Family was around, looking comfortable. No nausea, vomiting, diarrhea. No hematuria or hematochezia. No swelling of the legs. No chest pain. No palpitation. No headache. No dizziness. PHYSICAL EXAMINATION: VITAL SIGNS: Temperature 98, heart rate 85, respiratory rate 18, blood pressure 103/64, pulse oximetry 94% on 2 L nasal cannula. HEENT: Head normocephalic, atraumatic. Eyes PERRLA. Extraocular muscles intact. Conjunctivae clear. Nose patent. Mucous membrane moist. NECK: Supple. No carotid bruit. No JVD or thyromegaly. CHEST: Bilaterally symmetrical. HEART: S1 and S2 positive. LUNGS: Clear to auscultation. ABDOMEN: Soft. Bowel sounds positive. No organomegaly. EXTREMITIES: No edema. No cyanosis. NEUROLOGICAL: The patient is awake and alert. Moving all 4 extremities. No focal deficits. LABORATORY DATA: We do not have recent lab today, but I reviewed old labs. MEDICATIONS: DuoNeb, Antivert, Colace, Ecotrin, Lasix, prednisone, Protonix, Pulmicort, Robitussin, Tylenol, Tramadol, vitamin B12. ASSESSMENT AND PLAN: Ms. Kaitlin Altman, 87-year-old lady with exacerbation of chronic obstructive lung disease, interstitial infiltrates, pulmonary fibrosis, history of pulmonary hypertension, dementia, diastolic dysfunction, diabetes, hypertension, chronic constipation, anemia of chronic disease. Getting tapering dose of steroids, getting bronchodilators, aspiration precautions, cough is better, fall precautions. Gastrointestinal and deep venous thrombosis prophylaxis. Repeat labs. We will follow up. Nadira Clemente MD
[2018-03-04] MEDS: Pantoprazole 40 mg EC Tab PO SCH (11:47)
[2018-03-04] MEDS: guaiFENesin 100 mg/5 ml Syrup UD PO PRN (17:38)
--- NOTE | 2018-03-05 00:24 | PN ---
DATE: 03/04/2018 PULMONARY PROGRESS NOTE REFERRING PHYSICIAN: Nadira Clemente MD. SUBJECTIVE: Patient is out of bed to chair, daughter is at bedside. Feels better. No headache, no rhinitis. No nausea, no vomiting, no diarrhea. No leg pain or leg swelling. OBJECTIVE: GENERAL: In no acute distress. VITAL SIGNS: Temperature is 98, heart rate is 97, respiratory rate is 20, blood pressure 115/72, pulse ox 92% on 2 liters nasal cannula. HEENT: Moist mucous membranes. Small oral cavity. Crowded airway. NECK: Supple. LUNGS: Have a few crackles at the bases. HEART: S1 and S2. ABDOMEN: Soft, nontender, no organomegaly. EXTREMITIES: No edema. NEUROLOGIC: Awake, alert, follows simple command. MEDICATIONS: She is on albuterol nebulizer every 6 hours p.r.n., Antivert 12.5 mg daily, Colace 100 mg every 8 hours p.r.n., Ecotrin 81 mg daily, Lasix 20 mg daily, prednisone 10 mg daily, Protonix 40 mg daily, Pulmicort inhaled twice a day, Robitussin 100 mg three times a day p.r.n., Tylenol p.r.n. basis, Ultram 50 mg daily, vitamin B12 at 1000 mcg IM daily. LABORATORY DATA: Reviewed and no new lab is available since yesterday. Microbiology: Blood culture has been negative. IMPRESSION AND PLAN: Chronic obstructive lung disease, pulmonary fibrosis, pulmonary infiltrate, history of pulmonary hypertension, cardiac diastolic dysfunction, diabetes, hypertension, chronic constipation, anemia, activities of daily living dysfunction. Pulmonary point of view, doing better. Continue to taper steroids. Keep head at 45 degrees. Continue inhaled bronchodilator. Gastric prophylaxis. Fall precaution. Spoke to the patient's daughter at bedside. All her questions answered. Thank you and we will follow with you. Erika Newby MD
--- NOTE | 2018-03-05 05:49 | PN ---
DATE: 03/04/2018 SUBJECTIVE: The patient is 87-year-old female. The patient was seen and examined on the bedside, looking comfortable. Family is around. Cough is better. Shortness of breath is better. No nausea, vomiting or diarrhea. No hematuria or hematochezia. No swelling of the leg. No chest pain. No palpitation. No headache, no dizziness. PHYSICAL EXAMINATION: VITAL SIGNS: Temperature 98, pulse 96, blood pressure 119/75, respiratory rate 20, oxygen saturation 94. HEENT: Head: Normocephalic, atraumatic. Eyes: PERRLA. Extraocular movements intact. Conjunctivae clear. Nose: Patent. Mucous membrane moist. NECK: Supple, no carotid bruit. No JVD or thyromegaly. CHEST: Bilaterally symmetrical. HEART: S1 and S2 positive. LUNGS: Clear to auscultation. ABDOMEN: Soft, bowel sounds positive. No organomegaly. EXTREMITIES: No edema, no cyanosis. NEUROLOGICAL: Patient is awake, alert. Moving all 4 extremities. No focal deficits. MEDICATIONS: Albuterol, Antivert, Colace, Ecotrin, Lasix, prednisone, Protonix, Pulmicort, Robitussin, Tylenol, tramadol, B12. LABORATORY DATA: White blood cells 9.3, hemoglobin 12.4, hematocrit 38.1, platelets 294. Sodium 137, potassium 4.4, BUN 17, creatinine 0.5, glucose 102. AST 38. ASSESSMENT AND PLAN: Ms. Kaitlin Altman is an 87-year-old female with hypochloremia, abnormal liver function test, iron deficiency, desaturation and getting iron and B12, proteinuria, ketonuria, hematuria, came with exacerbation of chronic obstructive lung disease, interstitial infiltrates, pulmonary fibrosis, history of pulmonary hypertension, cardiac diastolic dysfunction, encephalopathy, chronic constipation, history of renal insufficiency, improved. bronchodilator. Gastrointestinal and deep venous thrombosis prophylaxis. Repeat labs. We will follow up. Nadira Clemente MD [facility]
[2018-03-05] MEDS: Budesonide 0.5 mg/2 ml Inhal Susp UD INH SCH ×2 (07:23→19:36)
[2018-03-05] MEDS: Pantoprazole 40 mg EC Tab PO SCH (08:11)
[2018-03-05 08:58] VITALS: RESP 18
[2018-03-05] MEDS: Albuterol 0.083% Inhal Sol (2.5 mg/3 mL) UD IH PRN (13:40)
[2018-03-05 18:01] VITALS: BP 115/60; PULSE 86; TEMP 97.7; O2SAT 97
[2018-03-05] MEDS: guaiFENesin 100 mg/5 ml Syrup UD PO PRN (18:22)
--- NOTE | 2018-03-05 19:57 | PN ---
DATE: 03/05/2018 PULMONARY PROGRESS NOTE REFERRING PHYSICIAN: Nadira Clemente MD SUBJECTIVE: She is lying in the bed, head at 45 degrees. Daughter is at bedside. Night was unremarkable. No cough. No sputum production. Gets short of breath with exertion. No nausea, no vomiting, no diarrhea. No leg pain or leg swelling. OBJECTIVE: GENERAL: In no acute distress. VITAL SIGNS: Temperature is 98, heart rate 74, respiratory rate 18, blood pressure 104/58, pulse ox 96% on 2 liters nasal cannula. HEENT: Moist mucous membrane. No ulcer or thrush noted. NECK: Supple. No JVD. LUNGS: Have a few crackles at the bases. HEART: S1 and S2. ABDOMEN: Soft, nontender. No organomegaly. EXTREMITIES: There is no edema. NEUROLOGICAL: Awake and follows simple command. MEDICATIONS: She is on albuterol/Atrovent nebulizer every 6 hours p.r.n., Antivert 12.5 mg daily, Colace 100 mg every 8 hours p.r.n., Ecotrin 81 mg daily, Lasix 20 mg daily, prednisone 10 mg daily, Protonix 40 mg daily, Pulmicort inhaled twice a day, Robitussin 100 mg three times a day, Tylenol p.r.n., Ultram 50 mg daily, vitamin B12 1000 mcg IM. LABORATORY DATA: Reviewed. No new lab is available since yesterday. IMPRESSION AND PLAN: Chronic obstructive lung disease, pulmonary fibrosis, pulmonary infiltrate, history of pulmonary hypertension, cardiac diastolic dysfunction, diabetes, hypertension, anemia, ADL dysfunction. Pulmonary point view, doing well. We will decrease prednisone to 5 mg daily. Continue inhaled bronchodilator. Continue diuretics. Fall precaution. Gastric prophylaxis. Sequential compression devices to lower extremity. Spoke to the patient's daughter at bedside. All the questions answered. Thank you and we will follow with you. Erika Newby MD
== END 2018-03-05 20:38 | DRG 190 ==
LOC: ED 12:06 → ERH 14:42 → 2RSO 21:36 → 5RNO 02-24 14:38
PROVIDERS: ADMIT Internal Medicine; ATTEND Internal Medicine
PROC: 3E0F7GC Introduction of Other Therapeutic Substance into Respiratory Tract, Via Natural or Artificial Opening (ICD-10-PCS; principal; 2018-02-24)
DX: J44.1 Chronic obstructive pulmonary disease with (acute) exacerbation (principal); G93.40 Encephalopathy, unspecified; J20.9 Acute bronchitis, unspecified; J44.0 Chronic obstructive pulmonary disease with (acute) lower respiratory infection; Z99.81 Dependence on supplemental oxygen; I27.20 Pulmonary hypertension, unspecified; J84.10 Pulmonary fibrosis, unspecified; K21.9 Gastro-esophageal reflux disease without esophagitis; K59.09 Other constipation; E11.65 Type 2 diabetes mellitus with hyperglycemia; D50.9 Iron deficiency anemia, unspecified; R42 Dizziness and giddiness; F03.90 Unspecified dementia, unspecified severity, without behavioral disturbance, psychotic disturbance, mood disturbance, and anxiety; I10 Essential (primary) hypertension; Z87.440 Personal history of urinary (tract) infections; Z90.49 Acquired absence of other specified parts of digestive tract